=== PATIENT | female | born 1960 | race Caucasian/White ===

== ENCOUNTER 2018-09-09 16:54 | Inpatient (IN) | payer BC ==
[~2018-09-09] VITALS: Ht 172.7 cm; Wt 80.3 kg
[2018-09-09] MEDS ORDERED: MELATONIN 3 MG TABLET PO PRN (17:15)
[2018-09-09] MEDS ORDERED: HYDROcodone/APAP 5 MG/325 MG (LORTAB) TAB PO PRN (17:15)
[2018-09-09] MEDS ORDERED: ONDANSETRON 4 MG (ZOFRAN) ORAL DISSOLVE TAB PO PRN (17:15)
[2018-09-09] MEDS ORDERED: ACETAMINOPHEN 500 MG TAB (TYLENOL) PO PRN (17:15)
[2018-09-09] MEDS ORDERED: CALCIUM CARBONATE 500 MG (TUMS) TAB.CHEW PO PRN (17:15)
[2018-09-09] MEDS ORDERED: LACTULOSE SYRUP 10GM/15ML (ENULOSE) 30ML UDC PO PRN (17:15)
[2018-09-09] MEDS ORDERED: LOPERAMIDE 2 MG (IMODIUM) CAP PO PRN (17:15)
[2018-09-09] MEDS ORDERED: ALPRAZolam 0.25 MG (XANAX) TAB PO PRN (17:15)
--- NOTE | 2018-09-09 22:30 | NUR ---
Adin Gibson admitted to room 231-1, with an admitting diagnosis of CVA, on 09/09/18 from [facility] via wheelchair van, accompanied by w/c house servant. ADIN GIBSON introduced to surroundings, call light, bed controls, phone, TV, temperature control, lights, meal times, smoking policy, visitor policy, side rail policy, bathrooms and showers. Patient Rights given to patient in the handbook.ADIN GIBSON verbalizes understanding that [facility] is not responsible for the loss or damage to any personal effects or valuables that are kept in the patients posession during their hospitalization. The following Patient Care Plans were discussed with the pt: Discharge Planning,impaired mobility, alteration in comfort, and alt in skin integrity. ADIN GIBSON verbalizes understanding of Interdisciplinary Patient Education. Patient was informed about the Rapid Response Team and its purpose. Patient received Patient Rights Booklet, which includes Privacy Act Statement and Data Collection Information Summary.
[2018-09-09 22:41] VITALS: BP 131/88
--- NOTE | 2018-09-09 22:44 | NUR ---
Dr. Banks notified of pt's arrival on unit
[2018-09-09 22:52] VITALS: BP 131/88
[2018-09-09] MEDS ORDERED: NAPROXEN 250 MG (NAPROSYN) TABLET PO PRN (23:00)
[2018-09-09] MEDS: POLYETHYLENE GLYCOL 17 GM (MIRALAX) PACK PO SCH (23:01)
[2018-09-09] MEDS ORDERED: ATORVASTATIN 40 MG (LIPITOR) TABLET ONE (23:03)
[2018-09-09] MEDS: DOCUSATE SODIUM 100 MG (COLACE) CAP PO SCH (23:11)
[2018-09-09] MEDS: ATORVASTATIN 80 MG (LIPITOR) TABLET PO SCH (23:11)
[2018-09-09] MEDS: SENNA W/DOCUSATE (SENOKOT S) TABLET PO SCH (23:11)
[2018-09-10 05:04] VITALS: BP 113/73
[2018-09-10 06:33] LABS: BASOPHILS # (AUTO) 0.1 10^3/uL (0.0-0.1); BASOPHILS % (AUTO) 1 % (0-10); EOSINOPHILS # (AUTO) 0.2 10^3/uL (0.0-0.3); EOSINOPHILS % (AUTO) 2 % (0-10); HEMATOCRIT 41 % (35-52); HEMOGLOBIN 14.3 G/DL (11.5-16.0); LYMPHOCYTES % (AUTO) 26 % (12-44); MEAN CORPUSCULAR HEMOGLOBIN 32 PG (25-34); MEAN CORPUSCULAR HGB CONC 35 G/DL (32-36); MEAN CORPUSCULAR VOLUME 90 FL (80-99); MEAN PLATELET VOLUME 9.8 FL (7.4-10.4); MONOCYTES # (AUTO) 0.9 X 10^3 (0.0-1.0); MONOCYTES % (AUTO) 12 % (0-12); NEUTROPHILS # (AUTO) 4.6 X 10^3 (1.8-7.8); NEUTROPHILS % (AUTO) 60 % (42-75); PLATELET COUNT 198 10^3/uL (130-400); RED CELL DISTRIBUTION WIDTH 12.6 % (10.0-14.5); WHITE BLOOD COUNT 7.8 10^3/uL (4.3-11.0)
[2018-09-10 07:00] LABS: ALANINE AMINOTRANSFERASE 39 U/L (0-55); ALBUMIN 4.1 GM/DL (3.2-4.5); ALKALINE PHOSPHATASE 66 U/L (40-136); BILIRUBIN,TOTAL 0.9 MG/DL (0.1-1.0); BUN/CREATININE RATIO 24; CALCIUM 9.4 MG/DL (8.5-10.1); CARBON DIOXIDE 21 MMOL/L (21-32); CHLORIDE 103 MMOL/L (98-107); CREATININE SERUM 0.79 MG/DL (0.60-1.30); GFR ESTIMATED > 60; GLUCOSE 96 MG/DL (70-105); POTASSIUM 3.9 MMOL/L (3.6-5.0); SODIUM 134 MMOL/L (135-145); TOTAL PROTEIN 6.8 GM/DL (6.4-8.2)
[2018-09-10] MEDS: CLOPIDOGREL 75 MG (PLAVIX) TABLET PO SCH (08:34)
[2018-09-10] MEDS: lisINopril 20 MG (PRINIVIL) TABLET PO SCH (08:35)
[2018-09-10] MEDS: DOCUSATE SODIUM 100 MG (COLACE) CAP PO SCH ×2 (08:35→20:49)
[2018-09-10] MEDS: POLYETHYLENE GLYCOL 17 GM (MIRALAX) PACK PO SCH ×2 (08:35→20:49)
[2018-09-10] MEDS: SENNA W/DOCUSATE (SENOKOT S) TABLET PO SCH ×2 (08:35→20:49)
--- NOTE | 2018-09-10 08:41 | PM&R H&P / Post Admit Assess ---
History of Present Illness HPI/Chief Complaint CC: CVA w/right sided weakness HPI: This is a 57yoWF clinic patient of Dr Guajardo at his [place] clinic who presented to the [facility] ER w/abrupt onset right sided deficit with dysarthria. tPA was administered and patient was then transferred to [facility] for neurological services. 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 No dysphagia was noted during acute care stay but dysarthria remains with word searching processes. She is in good spirits on Celexa per protocol. Constipation is resolving at time of DC. No pain is reported. 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 Smoking cessation counseled. Patient was placed on statin therapy and Plavix was added to regimen with no side effects. 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 Source: patient, RN/MD, old records Exam Limitations: no limitations Date Seen 09/10/18 Time Seen by a Provider: 08:30 Attending Physician Yumi Banks Jonathan L MD Referring Physician Date of Admission September 09, 2018 at 22:22 Home Medications & Allergies Home Medications Reviewed patient Home Medication Reconciliation performed by pharmacy medication reconciliations copy technician and/or nursing. Patients Allergies have been reviewed. 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) Alcohol Use: Regular Use Number of Drinks Today: 4 Alcohol Beverage of Choice: Beer Recreational Drug Use: No Smoking Status: Current Everyday Smoker Physical Abuse Screen: No Sexual Abuse: No Recent Foreign Travel: Yes Contact w/other who traveled: No Recent Hopitalizations: Yes ([facility] d/t CVA) Recent Infectious Disease Expo: No Seasonal Allergies Seasonal Allergies: No Past Medical History Neurological: Stroke (09/01/18 s/p tPA) Psychosocial: Anxiety, Depression History of Blood Disorders: No Adverse Reaction to Blood Jc: No Review of Systems Constitutional: see HPI, dizziness, malaise, weakness EENTM: no symptoms reported Respiratory: no symptoms reported Cardiovascular: no symptoms reported Gastrointestinal: constipation Genitourinary: incontinence Musculoskeletal: no symptoms reported Skin: no symptoms reported Psychiatric/Neurological: Anxiety, Depressed, Numbness, Paresthesia, Weakness, Other (dysarthria) All Other Systems Reviewed Negative Unless Noted: Yes Physical Exam Exam Vital Signs Vital Signs Date Time Temp Pulse Resp B/P (MAP) Pulse Ox O2 Delivery O2 Flow Rate FiO2 09/10/18 09:00 Room Air 09/10/18 05:04 97.4 63 20 113/73 (86) 95 Capillary Refill : General Appearance: No Apparent Distress, WD/WN, Chronically ill HEENT: PERRL/EOMI, Normal ENT Inspection, Pharynx Normal, Moist Mucous Membranes Neck: Full Range of Motion, Normal Inspection, Non Tender, Supple Respiratory: Chest Non Tender, Lungs Clear, Normal Breath Sounds, No Accessory Muscle Use, No Respiratory Distress Cardiovascular: Regular Rate, Rhythm, No Edema, No Gallop, No JVD, No Murmur Gastrointestinal: Normal Bowel Sounds, No Organomegaly, No Pulsatile Mass, Non Tender, Soft Back: Normal Inspection, No CVA Tenderness, No Vertebral Tenderness Extremity: Normal Capillary Refill, Normal Inspection, Normal Range of Motion, Non Tender, No Calf Tenderness, No Pedal Edema Neurologic/Psychiatric: Alert, Oriented x3, Abnormal Cerebellar Tests, Abnormal Gait, Depressed Affect, Motor Weakness (right sided 1/5 arm and leg), Other (dysarthria, word searching) Skin: Normal Color, Warm/Dry Lymphatic: No Adenopathy Results Results/Procedures Labs Laboratory Tests 09/10/18 06:20 Patient resulted labs reviewed. Assessment/Plan Assessment and Plan Assess & Plan/Chief Complaint Assessment: CVA w/right sided weakness Dysarthria Incontinence Constipation Smoker HLP Plan: IRF protocols BM regimen Smoking cessation Fall risk prevention (1) CVA (cerebral vascular accident) (2) Dysarthria (3) Incontinence of urine (4) Constipation (5) Smoker (6) Hyperlipidemia (7) Right sided weakness (8) Depression (9) Grief reaction Post Admission Physician Asses Date seen by provider: September 10, 2018 Time seen by provider: 08:30 Admisison Dx: (1) CVA (cerebral vascular accident) (2) Constipation (3) Dysarthria (4) Depression (5) Grief reaction (6) Hyperlipidemia (7) Incontinence of urine (8) Right sided weakness (9) Smoker The preadmission screen agrees with the post admission assessment that the patient is a good candidate for inpatient rehabilitation. The patient will have a comprehensive program of inpatient rehabilitation with a goal of maximizing level of functional independence prior to discharge home with . The patient will have PT/OT ninety minutes per day, each discipline, five days a week for gait, strengthening, conditioning, balance, ADLs, any patient/family/caregiver training as necessary. Speech therapy to do cognitive assessment and treat as indicated. Rehabilitation nursing to assist with bowel, bladder, skin, wound care, medication administration, pain management. Magnetic Prospecting Supervisor to assist with discharge planning, community reentry. SCD's for DVT prophylaxis. She appears to be well motivated to participate in three hours of therapy a day. She should be able to tolerate three hours of therapy a day from a medical standpoint. She should benefit from the three hours of therapy a day. She has a reasonable discharge plan, reasonable discharge rehabilitation goals and a supportive family. She has various comorbidities that need to be closely monitored with medications and treatments adjusted on a daily basis as needed. These include: see list Barriers to discharge for this patient who had been independent prior to this are for her to be modified independent to supervision for ADLs and mobility skills prior to discharge home with , so as to lessen the burden of the caregivers. Risks for this patient include: 1. Fall 2. Fracture 3. DVT 4. Pulmonary embolism 5. Wound infection 6. Skin breakdown 7. Contractures 8. Poorly controlled pain 9. Urinary retention 10. UTI 11. Respiratory infection 12. Aspiration Estimated Length of Stay: 21 days Prognosis: Rehab prognosis appears good for goal of discharge home with modified independent to supervision for ADLs and mobility skills. YUMI BANKS DO September 10, 2018 08:41
--- NOTE | 2018-09-10 08:52 | ST Cognitive Linguistic Eval ---
Speech Evaluation-General Medical Diagnosis CVA Onset Date: Sep 01, 2018 Therapy Diagnosis Therapy Diagnosis: Cognitive-communication Precautions Precautions/Isolations: Fall Prevention, Standard Precautions Medical History Reviewed History: Yes Social History Home: Multilevel Current Living Status: Spouse Speech PLF-Current Status Prior Level of Function The patient lived at home with her and son. She was still working a fulltime job and was independent for all daily needs. Subjective The patient was pleasant and cooperative with the cognitive assessment. Language Eval: Auditory Comprehends Simple Yes/No Ques: Functional Indent/Objects Multiple Wright: Functional Ident/Pics in Multiple Wright: Functional Follows 1-Step Commands: Functional Follows Complex Directions: Functional Follows General Conversations: Functional Language Eval: Verbal Language Completes Spontaneous Greeting: Functional Produces Auto, Serial Info: Functional Imitates Simple Words/Phrases: Functional Word Finding: Functional Requests Basic Needs: Functional States Basic Personal Info: Functional Expresses Complex Ideas: Functional Objective Cognitive Domain Attention: WNL Memory: WNL Problem Solving: Functional Executive Functions: WNL Visuospatial Skills: WNL Composite Severity Rating: WNL Clock Drawing Severity Rating: WNL Objective Formal/Standardized Tests [place] Cognitive Assessment (MOCA) Results Visuospatial/Executive: 5/5, Namin/3, Memory: Immediate 5/5, Delayed 5/5, Attention: 2/2, Language: 3/3, Abstraction: 2/2, Orientation: 6/6 Oral Motor/Speech Production Within functional limits Impression The patient is a pleasant 57 year old female who was admitted to the ARU s/p CVA for strengthening for a safe return home. The patient is a good historian and was able to recall the entire incident of the CVA. The patient completed the MOCA within normal range for all areas of assessment. The patient does not require skilled ST at this time. Communication/Social Cognition Comprehension: 7 Expression: 7 Social Interaction: 7 Problem Solvin Memory: 7 Speech Patient Assess Expression of Ideas/Wants: Expression (4) Understanding Verbal Content: Understands (4) Brief Interview-Mental Status: Yes Repetition of Three Words: Three (3) Temporal Orientation: Year: Correct (3) Temporal Orientation: Month: Accurate within 5 days(2) Temporal Orientation: Day: Correct (1) Recall : Wear to say "Sock": Yes, no cue required (2) Recall : Color: Yes, no cue required (2) Recall : Bed: Yes, no cue required (2) Memory/Recall Ability: Current season, Staff names and faces, That he or she is in a hsp/hsp unit Speech-Plan Patient/Family Goals Patient/Family Goals: The patient plans to return home where she lives with her and son. Her family will be available to help her with her daily needs. Treatment Plan Speech Therapy Treatment Plan: Discontinue ST The patient does not require skilled ST services at this time. Treatment Duration: September 10, 2018 Frequency: 1 time per week Estimated Hrs Per Day: .25 hour per day Rehab Potential: Good Barriers to Learning: Patient has right sided weakness. Pt/Family Agrees to Plan: Yes Safety Risks/Education Teaching Recipient: Patient Teaching Methods: Discussion Response to Teaching: Verbalize Understanding Education Topics Provided: Safety within her room and utilization of the call light as needed. Time Speech Therapy Time In: 08:30 Speech Therapy Time Out: 08:45 Total Billed Time: 15 Billed Treatment Time 1, SPSNDCOMP ASCENCION Christine September 10, 2018 08:52
--- NOTE | 2018-09-10 10:03 | Physical Therapy Evaluation ---
PT Evaluation-General Medical Diagnosis Admission Date September 09, 2018 at 22:22 Medical Diagnosis: CVA Onset Date: Sep 01, 2018 Therapy Diagnosis Therapy Diagnosis: impaired mobility, strength, endurance, balance Height/Weight Height (Feet): 5 Height (Inches): 8.00 Weight (Pounds): 175 Weight (Ounces): 3.2 Precautions Precautions/Isolations: Fall Prevention, Standard Precautions Referral Physician: Yumi Banks DO Reason for Referral: Evaluation/Treatment Medical History Additional Medical History anxiety,depression Reviewed History: Yes Social History Home: Multilevel Current Living Status: Spouse Entry Into Home: Stairs Without Railing PT Steps Into Home: 5 Prior/Core FIM Prior Level of Function Therapy Code Descriptions/Definitions Functional [place] Measure: 0=Not Assessed/NA 4=Minimal Assistance 1=Total Assistance 5=Supervision or Setup 2=Maximal Assistance 6=Modified [place] 3=Moderate Assistance 7=Complete [place] Therapy Quality Codes: 6 Independent with activity with or without an assistive device 5 Patient requires set up or clean up by helper. Patient completes activity by themselves 4 Supervision or touching assist (CGA). Cameron provide cues , steadying assist 3 The helper provides less than half the effort to complete the activity 2 The helper provides more than half the effort to complete the activity 1 Dependent. The helper does all the effort to complete an activity 7 Patient refused to complete or attempt activity 9 The patient did not perform the activity before the current illness or injury 88 Not attempted due to Medical conditions or safety concerns Functional Abilities and Goals: Independent: Patient completed the activities by him/herself, with or without an assistive device, with no assistance from a helper. Needed Some Help: Patient needed partial assistance from another person to complete activities. Dependent: A helper completed the activities for the patient. Unknown: Not Applicable: Bed Mobility: 7 Transfers (B,C,W/C) (FIM): 7 Gait: 7 Stairs: 7 Indoor Mobility (Ambulation): Independent Stairs: Independent PT Evaluation-Current Subjective Patient in bed pre tx, agrees to PT, has no complaints of pain. Pt/Family Goals to be independent at home Objective Patient Orientation: Person, Place, Situation ROM/Strength ROM Lower Extremities WNL Strenght Lower Extremities left lower extremity (hip flexion 4/5, knee flexion 5/5, knee extension 5/5, dorsiflexion 5/5), right lower extremity (hip flexion 2/5, knee flexion 0/5, knee extension 0/5, dorsiflexion 0/5) Neuromuscular (Tone, Coordination, Reflexes) decreased tone in LLE and LUE Sensory Vision: Functional Hearing: Functional Sensation Right Lower Extremit: Intact Sensation Left Lower Extremity: Impaired Sensation Lower Extremities Patient has decreased light touch sensation in LLE and patient states it is pretty numb Transfers Therapy Code Descriptions/Definitions Functional [place] Measure: 0=Not Assessed/NA 4=Minimal Assistance 1=Total Assistance 5=Supervision or Setup 2=Maximal Assistance 6=Modified [place] 3=Moderate Assistance 7=Complete [place] Therapy Quality Codes: 6 Independent with activity with or without an assistive device 5 Patient requires set up or clean up by helper. Patient completes activity by themselves 4 Supervision or touching assist (CGA). Cameron provide cues , steadying assist 3 The helper provides less than half the effort to complete the activity 2 The helper provides more than half the effort to complete the activity 1 Dependent. The helper does all the effort to complete an activity 7 Patient refused to complete or attempt activity 9 The patient did not perform the activity before the current illness or injury 88 Not attempted due to Medical conditions or safety concerns Transfers (B, C, W/C) (FIM): 3 Scootin Rollin Roll Left to Right (QC): 4 Supine to/from Sit: 4 Sit to/from Stand: 3 bed t/f WC(FIM only if WC use): 3 Sit to Lying (QC): 3 Lying to Sitting/Side of Bed(Q: 3 Sit to Stand (QC): 2 Chair/Mgp-ye-Aliuz Xfer(QC): 2 Car Transfer (QC): 2 Patient performs bed mobility with CGA, supine <-> sit with min assist, sit <-> stand with mod assist, transfers with mod assist, car transfer mod assist. Patient needs cues for hand placement, positioning, and safety. She cannot bear weight on right leg during transfers. Gait Does the Patient Walk?: Yes Mode of Locomotion: Wheelchair Anticipated Mode of Locomotion: Both Gait (FIM): 1 Distance: 8'x3 Gait Level of Assist: 2 Gait Persons Needed: 1 Gait Assistive Device: Parallel Bars Comments/Gait Description Patient ambulated 8' forward and back in the parallel bars x3 with max assist. Patient needs assist blocking right knee and advancing her right foot, some assist with weight shifting. Patient needs shoes and an AFO on the right side. Wheelchair Training Does the Pt Use a Wheelchair?: Yes Wheelchair (FIM): 4 Distance: 150'x2 Wheelchair Level of Assist: 4 Wheel 50 ft with 2 turns (QC): 4 Wheel 150 ft (QC): 4 Type of Wheelchair: Manual Patient can propel a manual wheelchair 150' with min assist to help around obstacles and corners. Stairs If not tested on admit;explain Patient is not ambulating out of the parallel bars yet. Balance Sitting Static: Good Sitting Dynamic: Good Standing Static: Poor Standing Dynamic: Poor Treatment sit to stands in the parallel bars 5reps x2, patient needs assist blocking right knee and cues to bear all weight through her left leg. Assessment/Needs Patient has impaired mobility ,strength, endurance, balance. She does not seem to have much neglect. Rehab Potential: Fair PT Short Term Goals Short Term Goals Time Frame: September 17, 2018 Transfers (B,C,W/C) (FIM): 4 Gait (FIM): 1 Gait Distance Comment: 20' Gait Level of Assist: 3 Gait Assistive Device: Walker Lior Wheelchair Distance: See PT goals PT Mcc Goals Prop And Scenery Maker Goals PT Prop And Scenery Maker Goals Time Frame: October 01, 2018 Transfers (B,C,W/C) (FIM): 4 Sit to Lying (QC): 4 Lying-Sitting on Side/Bed(QC): 4 Sit to Stand (QC): 4 Rollin Roll Left to Right (QC): 4 Chair/Pmd-ta-Bhzao Xfer(QC): 4 Car Transfer (QC): 4 Gait (FIM): 1 Distance: 40' Walk 10 feet (QC): 3 Walk 10ft-Uneven Surface(QC): 3 Gait Level of Assist: 4 Gait Assistive Device: Walker Lior Stairs (FIM): 1 # of Steps: 1 1 Step (curb) (QC): 3 Stairs Level Of Assist: 4 PT Plan Problem List Problem List: Activity Tolerance, Functional Strength, Safety, Balance, Gait, Transfer, Bed Mobility, ROM Treatment/Plan Treatment Plan: Continue Plan of Care Treatment Plan: Bed Mobility, Concurrent Therapy, Education, Functional Activity Linda, Functional Strength, Group Therapy, Gait, Safety, Therapeutic Exercise, Transfers Treatment Duration: October 01, 2018 Frequency: At least 5 of 7 days/Wk (IRF) Estimated Hrs Per Day: 1.5 hours per day Patient and/or Family Agrees t: Yes Safety Risks/Education Patient Education: Gait Training, Transfer Techniques, Correct Positioning, W/ C Management, Safety Issues Teaching Recipient: Patient Teaching Methods: Demonstration, Discussion Response to Teaching: Reinforcement Needed Discharge Recommendations Plan Patient will perform bed mobility and transfer training, balance and endurance training, functional strengthening, stair training, gait training, and education , to improve functional mobility and independence at home. Therapy D/C Recommendations: Home w/ Family Support Time/GCodes Time In: 0900 Time Out: 1000 Total Billed Treatment Time: 60 Total Billed Treatment 1 visit EVM 30' GT 20' EX 10' ALINE SÁNCHEZ PT September 10, 2018 10:03
[2018-09-10] MEDS ORDERED: LISI10TA2 PO (11:31)
[2018-09-10] MEDS ORDERED: ATEN25TA PO (11:31)
[2018-09-10] MEDS ORDERED: ASPI-983 PO (11:31)
[2018-09-10] MEDS ORDERED: MELA3TAB PO (11:31)
[2018-09-10] MEDS ORDERED: HYDR12.56 PO (11:31)
--- NOTE | 2018-09-10 11:32 | NUR ---
UPDATED MED REC TO THE LIST OF MEDICATIONS THE PATIENT WAS TAKING PRIOR TO DISCHARGE FROM [facility] USING THE DISCHARGE PAPERWORK. NOTE THE FOLLOWING CHANGES WERE MADE AT DISCHARGE FROM [facility] THAT ARE NOT CURRENTLY REFLECTED ON THE HOME MED REC: START TAKING: LIPITOR 40MG HS CITALOPRAM 10MG DAILY PLAVIX 75MG DAILY COLACE 100MG BID MILK OF MAG 30ML DAILY PRN STOP TAKING: ASPIRIN 81MG ATENOLOL 25MG HCTZ 12.5MG NOTE THEY STATE TO CONTINUE TAKING LISINOPRIL 10MG DAILY HOWEVER IT IS DOCUMENTED THE LAST DOSE GIVEN WAS 20MG ON 09-09-18. THERE IS NO EXT MED HX OR PHARMACY ON FILE FOR ME TO VERIFY WHAT HAS BEEN FILLED RECENTLY. THE PAPERWORK FROM [facility] HAS A LIST OF PRIOR TO ADMISSION MEDICATIONS: ASPIRIN 81MG 4 TABS DAILY LISINOPRIL 10MG DAILY MELATONIN 3MG HS PRN THE DISCHARGE STATES TO STOP TAKING: ASPIRIN 81MG ATENOLOL 25MG HYDROCHLOROTHIAZIDE 12.5MG
--- NOTE | 2018-09-10 12:56 | Occupational Therapy Eval ---
OT Evaluation-General/PLF Medical Diagnosis Admission Date September 09, 2018 at 22:22 Medical Diagnosis: CVA Onset Date: Sep 01, 2018 Therapy Diagnosis Therapy Diagnosis: decreased self care skills Height/Weight Height (Feet): 5 Height (Inches): 8.00 Weight (Pounds): 175 Weight (Ounces): 3.2 Precautions Precautions/Isolations: Fall Prevention Referral Physician: Yumi Banks DO Medical History Additional Medical History anxiety, depression Reviewed History: Yes Social History Home: Multilevel Current Living Status: Spouse Entry Into Home: Stairs Without Railing Steps Into Home: 5 ADL-Prior Level of Function Therapy Code Descriptions/Definitions Functional [place] Measure: 0=Not Assessed/NA 4=Minimal Assistance 1=Total Assistance 5=Supervision or Setup 2=Maximal Assistance 6=Modified [place] 3=Moderate Assistance 7=Complete [place] Therapy Quality Codes: 6 Independent with activity with or without an assistive device 5 Patient requires set up or clean up by helper. Patient completes activity by themselves 4 Supervision or touching assist (CGA). [place] provide cues , steadying assist 3 The helper provides less than half the effort to complete the activity 2 The helper provides more than half the effort to complete the activity 1 Dependent. The helper does all the effort to complete an activity 7 Patient refused to complete or attempt activity 9 The patient did not perform the activity before the current illness or injury 88 Not attempted due to Medical conditions or safety concerns Functional Abilities and Goals: Independent: Patient completed the activities by him/herself, with or without an assistive device, with no assistance from a helper. Needed Some Help: Patient needed partial assistance from another person to complete activities. Dependent: A helper completed the activities for the patient. Unknown: Not Applicable: ADL PLOF Comments Pt reports being independent with self care and mobility. Does not use any assistive devices. 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 Mental Status/Objective Patient Orientation: Person, Place, Situation Current Glasses/Contacts: Yes Hearing Aids: No Hand Dominance: Left Upper Extremity ROM Left UE WFL Right UE PROM grossly WFL. Pt has some increased tone Upper Extremity Coordination Left UE intact Right UE impaired. Upper Extremity Sensation Intact on left. Pt reports "hypersensitivity"on right Upper Extremity Strength Left UE grossly WFL Right UE 0/5 ADL-Treatment ADL-Current Pt agreeable to shower. Transfer chair to w/c with moderate assistance. Pt has poor weight bearing through right LE. To restroom via w/c. Transfer w/c <-> shower bench with moderate assistance using grab bars, skilled cues for technique and safety. Pt doffed clothing with max assist. Seated bathing completed using hand held shower. Pt able to wash right UE, chest, abdomen, tawny area, bilateral upper legs, and left lower leg. Assist for other areas. Don bra with max assist. Don pullover shirt with max assist. Skilled cues for UE dressing technique. Pt requires assist to start Depends and pants over feet. Stood with mod assist, required assist to complete pant hike. Pt donned left socks, required assist with right sock. Pt transferred to chair with mod assist. Sitting in chair with needs met after session, family present. Eating (FIM): 5 (set up by report) Eating (QC): 5 Bathing (FIM): 3 Shower/Bathe Self (QC): 3 Upper Body Dressing (FIM): 2 Upper Body Dressing (QC): 2 Lower Body Dressing (FIM): 2 Lower Body Dressing (QC): 2 On/Off Footwear (QC): 2 Toilet/Commode Transfer (FIM): 3 Toilet Transfer (QC): 3 Shower Transfer (FIM): 3 Education OT Patient Education: Rehab process Teaching Recipient: Patient Teaching Methods: Discussion Response to Teaching: Verbalize Understanding OT Short Term Goals Short Term Goals Time Frame: September 17, 2018 Bathing(FIM): 4 Upper Body Dressing(FIM): 3 Lower Body Dressing(FIM): 3 Toileting(FIM): 3 Toilet/Commode Transfer(FIM): 4 Additional Short Term Goals: 2-Verbalize Understanding, 3-ImproveStrength/Linda 1=Demonstrate adherence to instructed precautions during ADL tasks. 2=Patient will verbalize/demonstrate understanding of assistive devices/ modifications for ADL. 3=Patient will improve strength/tolerance for activity to enable patient to perform ADL's. OT Director Of Land Acquisition Goals Director Of Land Acquisition Goals Time Frame: October 01, 2018 Eating (FIM): 6 Eating (QC): 6 Groomin Oral Hygiene (QC): 6 Bathing(FIM): 5 Shower/Bathe Self (QC): 4 Upper Body Dressing(FIM): 5 Upper Body Dressing (QC): 5 Lower Body Dressing(FIM): 4 Lower Body Dressing (QC): 4 On/Off Footwear (QC): 4 Toileting(FIM): 5 Toileting Hygiene (QC): 4 Toilet/Commode Transfer(FIM): 5 Toilet/Commode Transfer (QC): 5 Shower Transfer(FIM): 5 Additional Goals: 2-Verbalize Understanding, 3-ImproveStrength/Linda 1=Demonstrate adherence to instructed precautions during ADL tasks. 2=Patient will verbalize/demonstrate understanding of assistive devices/ modifications for ADL. 3=Patient will improve strength/tolerance for activity to enable patient to perform ADL's. Goals established to promote increased functional independence and allow safe discharge. OT Education/Plan Problem List/Assessment Assessment: Decreased Activ Tolerance, Decreased UE Strength, Dependent Transfers, Impaired Coordination, Impaired Funct Balance, Impaired I ADL's, Impaired Self-Care Skills, Restricted Funct UE ROM Pt admitted to ARU following CVA. Pt demonstrates decreased activity tolerance, mobility, strength, ROM, and ADL functioning. Pt to benefit from skilled OT intervention for ADL training, training, transfers, strengthening, and safety education to increase level of independence and allow safe discharge home with family. Discharge Recommendations Plan/Recommendations: Continue POC Treatment Plan/Plan of Care Treatment,Training & Education: Yes Patient would benefit from OT for education, treatment and training to promote independence in ADL's, mobility, safety and/or upper extremity function for ADL' s. Plan of Care: ADL Retraining, Functional Mobility, Group Exercise/Act as Ind, UE Funct Exercise/Act, UE Neuromus Re-Ed/Coord Treatment Duration: October 01, 2018 Frequency: At least 5 of 7 days/Wk (IRF) Estimated Hrs Per Day: 1.5 hours per day Rehab Potential: Fair Time/GCodes Start Time: 11:00 Stop Time: 12:00 Total Time Billed (hr/min): 60 Billed Treatment Time 1 visit, EVM(15minutes), ADLx3(45minutes) EVENS MARKS OT September 10, 2018 12:56
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
--- NOTE | 2018-09-10 13:33 | Physical Therapy Daily Note ---
PT Daily Note-Current Subjective Patient in recliner pre tx, agrees to PT, no complaints of pain. Appearance Patient in wheelchair at bedside post tx with nurse call, tray, family in the room. Mental Status Patient Orientation: Person, Place, Situation Transfers Therapy Code Descriptions/Definitions Functional [place] Measure: 0=Not Assessed/NA 4=Minimal Assistance 1=Total Assistance 5=Supervision or Setup 2=Maximal Assistance 6=Modified [place] 3=Moderate Assistance 7=Complete [place] Therapy Quality Codes: 6 Independent with activity with or without an assistive device 5 Patient requires set up or clean up by helper. Patient completes activity by themselves 4 Supervision or touching assist (CGA). [place] provide cues , steadying assist 3 The helper provides less than half the effort to complete the activity 2 The helper provides more than half the effort to complete the activity 1 Dependent. The helper does all the effort to complete an activity 7 Patient refused to complete or attempt activity 9 The patient did not perform the activity before the current illness or injury 88 Not attempted due to Medical conditions or safety concerns Transfers (B, C, W/C) (FIM): 4 Sit to/from Stand: 4 Bed to/from Chair: 4 SPT Pablo Wheelchair Training Does the Pt Use a Wheelchair?: Yes Wheelchair (FIM): 5 Distance: 150'x2 Wheelchair Level of Assist: 5 Type of Wheelchair: Manual uses left arm and leg Exercises NuStep Minutes: 15 NuStep Workload: 4 Treatments transfers, wheelchair mobility, functional strengthening Assessment Current Status: Fair Progress Patient has improved SPT PT Short Term Goals Short Term Goals Time Frame: September 17, 2018 Transfers (B,C,W/C) (FIM): 4 Gait (FIM): 1 Gait Distance Comment: 20' Gait Level of Assist: 3 Gait Assistive Device: Walker Lior Wheelchair Distance: 150'x2 PT Penitentiary Goals Penitentiary Goals PT Slurry Blender Goals Time Frame: October 01, 2018 Transfers (B,C,W/C) (FIM): 4 Sit to Lying (QC): 4 Lying-Sitting on Side/Bed(QC): 4 Sit to Stand (QC): 4 Rollin Roll Left to Right (QC): 4 Chair/Jtp-qt-Eykic Xfer(QC): 4 Car Transfer (QC): 4 Gait (FIM): 1 Distance: 40' Walk 10 feet (QC): 3 Walk 10ft-Uneven Surface(QC): 3 Gait Level of Assist: 4 Gait Assistive Device: Walker Lior Stairs (FIM): 1 # of Steps: 1 1 Step (curb) (QC): 3 Stairs Level Of Assist: 4 PT Plan Problem List Problem List: Activity Tolerance, Functional Strength, Safety, Balance, Gait, Transfer, Bed Mobility Treatment/Plan Treatment Plan: Continue Plan of Care Treatment Plan: Bed Mobility, Concurrent Therapy, Education, Functional Activity Linda, Functional Strength, Group Therapy, Gait, Safety, Therapeutic Exercise, Transfers Treatment Duration: October 01, 2018 Frequency: At least 5 of 7 days/Wk (IRF) Estimated Hrs Per Day: 1.5 hours per day Patient and/or Family Agrees t: Yes Safety Risks/Education Patient Education: Transfer Techniques, Correct Positioning, W/C Management, Safety Issues Teaching Recipient: Patient Teaching Methods: Demonstration, Discussion Response to Teaching: Reinforcement Needed Time/GCodes Time In: 1300 Time Out: 1330 Total Billed Treatment Time: 30 Total Billed Treatment 1 visit [facility] 15' EX 15' ALINE SÁNCHEZ PT September 10, 2018 13:33
--- NOTE | 2018-09-10 14:59 | Occupational Ther Daily Note ---
OT Current Status-Daily Note Subjective Pt sitting in w/c, agrees to treatment. Mental Status/Objective Therapy Code Descriptions/Definitions Functional [place] Measure: 0=Not Assessed/NA 4=Minimal Assistance 1=Total Assistance 5=Supervision or Setup 2=Maximal Assistance 6=Modified [place] 3=Moderate Assistance 7=Complete [place] ADL-Treatment To restroom via w/c. Pt completed grooming tasks while seated at sink. Pt brushed teeth with SBA. Has already combed hair with assist from daughter. Pt demonstrated ability to transfer w/c <-> commode with mod assist. Requires skilled cues for safety and hand placement. Pt has decreased weight bearing on right LE with mobility. Pt transferred to bed with moderate assistance. Required assist to raise right LE onto bed. PROM completed right UE at all joints. No active movement noted. Pt was positioned in bed with needs met after session. Therapy Code Descriptions/Definitions Functional [place] Measure: 0=Not Assessed/NA 4=Minimal Assistance 1=Total Assistance 5=Supervision or Setup 2=Maximal Assistance 6=Modified [place] 3=Moderate Assistance 7=Complete [place] Therapy Quality Codes: 6 Independent with activity with or without an assistive device 5 Patient requires set up or clean up by helper. Patient completes activity by themselves 4 Supervision or touching assist (CGA). [place] provide cues , steadying assist 3 The helper provides less than half the effort to complete the activity 2 The helper provides more than half the effort to complete the activity 1 Dependent. The helper does all the effort to complete an activity 7 Patient refused to complete or attempt activity 9 The patient did not perform the activity before the current illness or injury 88 Not attempted due to Medical conditions or safety concerns Grooming (FIM): 5 Oral Hygiene (QC): 4 Toilet/Commode Transfer (FIM): 3 Toilet Transfer (QC): 3 OT Short Term Goals Short Term Goals Time Frame: September 17, 2018 Bathing(FIM): 4 Upper Body Dressing(FIM): 3 Lower Body Dressing(FIM): 3 Toileting(FIM): 3 Toilet/Commode Transfer(FIM): 4 Additional Short Term Goals: 2-Verbalize Understanding, 3-ImproveStrength/Linda 1=Demonstrate adherence to instructed precautions during ADL tasks. 2=Patient will verbalize/demonstrate understanding of assistive devices/ modifications for ADL. 3=Patient will improve strength/tolerance for activity to enable patient to perform ADL's. OT Elementary Vocal Music Teacher Goals [facility] Goals Time Frame: October 01, 2018 Eating (FIM): 6 Eating (QC): 6 Groomin Oral Hygiene (QC): 6 Bathing(FIM): 5 Shower/Bathe Self (QC): 4 Upper Body Dressing(FIM): 5 Upper Body Dressing (QC): 5 Lower Body Dressing(FIM): 4 Lower Body Dressing (QC): 4 On/Off Footwear (QC): 4 Toileting(FIM): 5 Toileting Hygiene (QC): 4 Toilet/Commode Transfer(FIM): 5 Toilet/Commode Transfer (QC): 5 Shower Transfer(FIM): 5 Additional Goals: 2-Verbalize Understanding, 3-ImproveStrength/Linda 1=Demonstrate adherence to instructed precautions during ADL tasks. 2=Patient will verbalize/demonstrate understanding of assistive devices/ modifications for ADL. 3=Patient will improve strength/tolerance for activity to enable patient to perform ADL's. OT Education/Plan Discharge Recommendations Plan/Recommendations: Continue POC Treatment Plan/Plan of Care Treatment,Training & Education: Yes Patient would benefit from OT for education, treatment and training to promote independence in ADL's, mobility, safety and/or upper extremity function for ADL' s. Plan of Care: ADL Retraining, Functional Mobility, Group Exercise/Act as Ind, UE Funct Exercise/Act, UE Neuromus Re-Ed/Coord Treatment Duration: October 01, 2018 Frequency: At least 5 of 7 days/Wk (IRF) Estimated Hrs Per Day: 1.5 hours per day Rehab Potential: Fair Time/GCodes Start Time: 13:30 Stop Time: 14:15 Total Time Billed (hr/min): 45 Billed Treatment Time 1 visit, ADLx2(30minutes), EX(15minutes) EVENS MARKS OT September 10, 2018 14:59
--- NOTE | 2018-09-10 15:05 | Physical Therapy Daily Note ---
PT Daily Note-Current Subjective Patient in bed pre tx, agrees to PT, has no complaints of pain. Appearance Patient in bed post tx with nurse call, phone, tray, all needs met. Heel protector boot on right foot. Mental Status Patient Orientation: Person, Place, Situation Transfers Therapy Code Descriptions/Definitions Functional [place] Measure: 0=Not Assessed/NA 4=Minimal Assistance 1=Total Assistance 5=Supervision or Setup 2=Maximal Assistance 6=Modified [place] 3=Moderate Assistance 7=Complete [place] Therapy Quality Codes: 6 Independent with activity with or without an assistive device 5 Patient requires set up or clean up by helper. Patient completes activity by themselves 4 Supervision or touching assist (CGA). [place] provide cues , steadying assist 3 The helper provides less than half the effort to complete the activity 2 The helper provides more than half the effort to complete the activity 1 Dependent. The helper does all the effort to complete an activity 7 Patient refused to complete or attempt activity 9 The patient did not perform the activity before the current illness or injury 88 Not attempted due to Medical conditions or safety concerns Exercises PROM/stretching in left leg all planes. AAROM leg flexion and extension in the left side x10. Treatments stretching, AAROM Assessment Current Status: Fair Progress No contractures. PT Short Term Goals Short Term Goals Time Frame: September 17, 2018 Gait (FIM): 1 Gait Distance Comment: 20' Gait Level of Assist: 3 Gait Assistive Device: Walker Lior Wheelchair Distance: 150'x2 PT Skilled Nursing Goals [place] Miner Blasting Goals PT Skilled Nursing Goals Time Frame: October 01, 2018 Transfers (B,C,W/C) (FIM): 4 Sit to Lying (QC): 4 Lying-Sitting on Side/Bed(QC): 4 Sit to Stand (QC): 4 Rollin Roll Left to Right (QC): 4 Chair/Pqv-gl-Qbadd Xfer(QC): 4 Car Transfer (QC): 4 Gait (FIM): 1 Distance: 40' Walk 10 feet (QC): 3 Walk 10ft-Uneven Surface(QC): 3 Gait Level of Assist: 4 Gait Assistive Device: Walker Lior Stairs (FIM): 1 # of Steps: 1 1 Step (curb) (QC): 3 Stairs Level Of Assist: 4 PT Plan Problem List Problem List: Activity Tolerance, Functional Strength, Safety, Balance, Gait, Transfer, Bed Mobility, ROM Treatment/Plan Treatment Plan: Continue Plan of Care Treatment Plan: Bed Mobility, Concurrent Therapy, Education, Functional Activity Linda, Functional Strength, Group Therapy, Gait, Safety, Therapeutic Exercise, Transfers Treatment Duration: October 01, 2018 Frequency: At least 5 of 7 days/Wk (IRF) Estimated Hrs Per Day: 1.5 hours per day Patient and/or Family Agrees t: Yes Safety Risks/Education Patient Education: Correct Positioning, Safety Issues Teaching Recipient: Patient Teaching Methods: Demonstration, Discussion Response to Teaching: Reinforcement Needed Time/GCodes Time In: 1450 Time Out: 1505 Total Billed Treatment Time: 15 Total Billed Treatment 1 visit EX 15' ALINE SÁNCHEZ PT September 10, 2018 15:05
[2018-09-10 17:07] VITALS: BP 115/75
[2018-09-10] MEDS: ATORVASTATIN 80 MG (LIPITOR) TABLET PO SCH (20:49)
[2018-09-11 05:10] VITALS: BP 134/79
[2018-09-11] MEDS: POLYETHYLENE GLYCOL 17 GM (MIRALAX) PACK PO SCH ×2 (09:00→20:53)
[2018-09-11] MEDS: SENNA W/DOCUSATE (SENOKOT S) TABLET PO SCH ×2 (09:11→20:53)
[2018-09-11] MEDS: CLOPIDOGREL 75 MG (PLAVIX) TABLET PO SCH (09:11)
[2018-09-11] MEDS: lisINopril 20 MG (PRINIVIL) TABLET PO SCH (09:11)
[2018-09-11] MEDS: DOCUSATE SODIUM 100 MG (COLACE) CAP PO SCH ×2 (09:11→20:53)
--- NOTE | 2018-09-11 10:45 | Physical Therapy Daily Note ---
PT Daily Note-Current Subjective AGreeable to PT. Reports she did not sleep well last night. Pain Location: Right Location Body Site: Arm Pain Description: Ache (pins and needles.) Mental Status Patient Orientation: Person, Place, Time, Situation Transfers Therapy Code Descriptions/Definitions Functional [place] Measure: 0=Not Assessed/NA 4=Minimal Assistance 1=Total Assistance 5=Supervision or Setup 2=Maximal Assistance 6=Modified [place] 3=Moderate Assistance 7=Complete [place] Therapy Quality Codes: 6 Independent with activity with or without an assistive device 5 Patient requires set up or clean up by helper. Patient completes activity by themselves 4 Supervision or touching assist (CGA). [place] provide cues , steadying assist 3 The helper provides less than half the effort to complete the activity 2 The helper provides more than half the effort to complete the activity 1 Dependent. The helper does all the effort to complete an activity 7 Patient refused to complete or attempt activity 9 The patient did not perform the activity before the current illness or injury 88 Not attempted due to Medical conditions or safety concerns Treatments Pt transferred supin to /from sit EOB with skilled cues for sequencing and min assist. Sat EOB unsupported without safety concerns. Perfomred WB activity through the right UE to work to reduce complaints of pain and to facilitate muscle activation. Sit to stand x 3 with lior walker. Pt requires min assist to come to a stand and skilled cues for sequencing; max assist to support right LE in standing. Worked on right knee and hip extension with mod to max assist ; weight shifting right with assist to maintain WB through the right LE. Pt able to better achieve hip and knee extension as treatment progressed; although continued to need assist. Pt in bed post treatment with right UE elevated and heel protector right. Assessment Current Status: Good Progress Improved ability corrina attain hip/knee extension in standing with skilled intervention this date. PT Short Term Goals Short Term Goals Time Frame: September 17, 2018 Gait (FIM): 1 Gait Distance Comment: 20' Gait Level of Assist: 3 Gait Assistive Device: Walker Lior Wheelchair Distance: 150'x2 PT Microelectronics Engineer Goals Microelectronics Engineer Goals PT Shelter Goals Time Frame: October 01, 2018 Transfers (B,C,W/C) (FIM): 4 Sit to Lying (QC): 4 Lying-Sitting on Side/Bed(QC): 4 Sit to Stand (QC): 4 Rollin Roll Left to Right (QC): 4 Chair/Wyk-dr-Ydidl Xfer(QC): 4 Car Transfer (QC): 4 Gait (FIM): 1 Distance: 40' Walk 10 feet (QC): 3 Walk 10ft-Uneven Surface(QC): 3 Gait Level of Assist: 4 Gait Assistive Device: Walker Lior Stairs (FIM): 1 # of Steps: 1 1 Step (curb) (QC): 3 Stairs Level Of Assist: 4 PT Plan Problem List Problem List: Activity Tolerance, Functional Strength, Safety, Balance, Gait, Transfer, Bed Mobility Treatment/Plan Treatment Plan: Continue Plan of Care Treatment Plan: Bed Mobility, Concurrent Therapy, Education, Functional Activity Linda, Functional Strength, Group Therapy, Gait, Safety, Therapeutic Exercise, Transfers Treatment Duration: October 01, 2018 Frequency: At least 5 of 7 days/Wk (IRF) Estimated Hrs Per Day: 1.5 hours per day Patient and/or Family Agrees t: Yes Safety Risks/Education Patient Education: Disease Process Teaching Recipient: Patient Teaching Methods: Discussion Response to Teaching: Verbalize Understanding Time/GCodes Time In: 920 Time Out: 1000 Total Billed Treatment Time: 40 Total Billed Treatment visit FA 40 TJ REVELES PT September 11, 2018 10:45
--- NOTE | 2018-09-11 11:32 | Occupational Ther Daily Note ---
OT Current Status-Daily Note Subjective Pt alert and agreeable to OT. Pt states that she did not sleep well the previous night due to discomfort through right shoulder and right hip. Pt's family and friends present throughout duration of tx. Mental Status/Objective Therapy Code Descriptions/Definitions Functional [place] Measure: 0=Not Assessed/NA 4=Minimal Assistance 1=Total Assistance 5=Supervision or Setup 2=Maximal Assistance 6=Modified [place] 3=Moderate Assistance 7=Complete [place] ADL-Treatment Therapy Code Descriptions/Definitions Functional [place] Measure: 0=Not Assessed/NA 4=Minimal Assistance 1=Total Assistance 5=Supervision or Setup 2=Maximal Assistance 6=Modified [place] 3=Moderate Assistance 7=Complete [place] Therapy Quality Codes: 6 Independent with activity with or without an assistive device 5 Patient requires set up or clean up by helper. Patient completes activity by themselves 4 Supervision or touching assist (CGA). [place] provide cues , steadying assist 3 The helper provides less than half the effort to complete the activity 2 The helper provides more than half the effort to complete the activity 1 Dependent. The helper does all the effort to complete an activity 7 Patient refused to complete or attempt activity 9 The patient did not perform the activity before the current illness or injury 88 Not attempted due to Medical conditions or safety concerns Other Treatment Pt tolerated PROM through RUE gross planes of motion with no complaints of pain. Humerus supported in glenohumeral joint throughout PROM of shoulder. Pt participated in NDT weight bearing techniques through joints of RUE to facilitate increased proprioceptive input through extremity. Pt tolerated weight bearing without complaints of pain. OT placed pt in sling this date to facilitate increased support through joint. Pt and pt's family educated on techniques for donning/doffing sling. Educated on rationale for sling, and benefits of wearing sling for increased support and to decrease subluxation. OT Short Term Goals Short Term Goals Time Frame: September 17, 2018 Bathing(FIM): 4 Upper Body Dressing(FIM): 3 Lower Body Dressing(FIM): 3 Toileting(FIM): 3 Toilet/Commode Transfer(FIM): 4 Additional Short Term Goals: 2-Verbalize Understanding, 3-ImproveStrength/Linda 1=Demonstrate adherence to instructed precautions during ADL tasks. 2=Patient will verbalize/demonstrate understanding of assistive devices/ modifications for ADL. 3=Patient will improve strength/tolerance for activity to enable patient to perform ADL's. OT [employer] Goals Care Home Goals Time Frame: October 01, 2018 Eating (FIM): 6 Eating (QC): 6 Groomin Oral Hygiene (QC): 6 Bathing(FIM): 5 Shower/Bathe Self (QC): 4 Upper Body Dressing(FIM): 5 Upper Body Dressing (QC): 5 Lower Body Dressing(FIM): 4 Lower Body Dressing (QC): 4 On/Off Footwear (QC): 4 Toileting(FIM): 5 Toileting Hygiene (QC): 4 Toilet/Commode Transfer(FIM): 5 Toilet/Commode Transfer (QC): 5 Shower Transfer(FIM): 5 Additional Goals: 2-Verbalize Understanding, 3-ImproveStrength/Linda 1=Demonstrate adherence to instructed precautions during ADL tasks. 2=Patient will verbalize/demonstrate understanding of assistive devices/ modifications for ADL. 3=Patient will improve strength/tolerance for activity to enable patient to perform ADL's. OT Education/Plan Discharge Recommendations Plan/Recommendations: Continue POC Treatment Plan/Plan of Care Patient would benefit from OT for education, treatment and training to promote independence in ADL's, mobility, safety and/or upper extremity function for ADL' s. Plan of Care: ADL Retraining, Functional Mobility, Group Exercise/Act as Ind, UE Funct Exercise/Act, UE Neuromus Re-Ed/Coord Treatment Duration: October 01, 2018 Frequency: At least 5 of 7 days/Wk (IRF) Estimated Hrs Per Day: 1.5 hours per day Rehab Potential: Fair Time/GCodes Start Time: 11:00 Stop Time: 11:30 Total Time Billed (hr/min): 30 Billed Treatment Time 1, EX1, NM1 KIRSTIN RILEY OT September 11, 2018 11:32
[2018-09-11] MEDS: BACLOFEN 10 MG (LIORESAL) TAB PO PRN ×2 (11:55→20:53)
--- NOTE | 2018-09-11 12:39 | PM&R Progress Note ---
Subjective HPI/CC On Admission Date Seen by Provider: September 11, 2018 Time Seen by Provider: 11:00 CC: CVA w/right sided weakness HPI: This is a 57yoWF clinic patient of Dr Guajardo at his [place] clinic who presented to the [facility] ER w/abrupt onset right sided deficit with dysarthria. tPA was administered and patient was then transferred to [facility] for neurological services. 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 No dysphagia was noted during acute care stay but dysarthria remains with word searching processes. She is in good spirits on Celexa per protocol. Constipation is resolving at time of DC. No pain is reported. Patient worked at a [employer] center prior to the CVA and is to a spouse who is disabled. Smoking cessation counseled. Patient was placed on statin therapy and Plavix was added to regimen with no side effects. 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 Subjective/Events-last exam Family at the bedside I met her and daughter and granddaughter Very supportive family Overall very motivated energetic and positive Finally had large bowel movements so that is back to normal Muscle spasms may improved with baclofen so I ordered that Has significant grief reaction since her daughter's one-year anniversary of her from cystic fibrosis is September 24 Checked meds and labs Conferred with quality assurance test program manager therapy notes Right arm is now in a sling Review of Systems General: Fatigue Neurological: Weakness, Numbness, Incoordination, Change in speech Objective Exam Vital Signs Vital Signs Date Time Temp Pulse Resp B/P (MAP) Pulse Ox O2 Delivery O2 Flow Rate FiO2 09/12/18 09:00 Room Air 09/12/18 05:13 97.0 65 16 141/82 (101) 98 Capillary Refill : General Appearance: No Apparent Distress, WD/WN, Chronically ill HEENT: PERRL/EOMI, Normal ENT Inspection, Pharynx Normal, Moist Mucous Membranes Neck: Full Range of Motion, Normal Inspection, Non Tender, Supple Respiratory: Chest Non Tender, Lungs Clear, Normal Breath Sounds, No Accessory Muscle Use, No Respiratory Distress Cardiovascular: Regular Rate, Rhythm, No Edema, No Gallop, No JVD, No Murmur Gastrointestinal: Normal Bowel Sounds, No Organomegaly, No Pulsatile Mass, Non Tender, Soft Back: Normal Inspection, No CVA Tenderness, No Vertebral Tenderness Extremity: Normal Capillary Refill, Normal Inspection, Normal Range of Motion, Non Tender, No Calf Tenderness, No Pedal Edema Neurologic/Psychiatric: Alert, Oriented x3, Abnormal Cerebellar Tests, Abnormal Gait, Depressed Affect, Motor Weakness (right sided 1/5 arm and leg), Other (dysarthria, word searching) Skin: Normal Color, Warm/Dry Lymphatic: No Adenopathy Results/Procedures Lab Patient resulted labs reviewed. FIM Transfers Therapy Code Descriptions/Definitions Functional [place] Measure: 0=Not Assessed/NA 4=Minimal Assistance 1=Total Assistance 5=Supervision or Setup 2=Maximal Assistance 6=Modified [place] 3=Moderate Assistance 7=Complete [place] Therapy Quality Codes: 6 Independent with activity with or without an assistive device 5 Patient requires set up or clean up by helper. Patient completes activity by themselves 4 Supervision or touching assist (CGA). [place] provide cues , steadying assist 3 The helper provides less than half the effort to complete the activity 2 The helper provides more than half the effort to complete the activity 1 Dependent. The helper does all the effort to complete an activity 7 Patient refused to complete or attempt activity 9 The patient did not perform the activity before the current illness or injury 88 Not attempted due to Medical conditions or safety concerns Mental Status/Objective Comprehension: 7 Expression: 7 Social Interaction: 7 Problem Solvin Memory: 7 ADL-Treatment Feedin (set up by report) Eating (QC): 5 Groomin Oral Hygiene (QC): 4 Bathin Shower/Bathe Self (QC): 3 Upper Extremity Dressin Upper Body Dressing (QC): 2 Lower Extremity Dressin Lower Body Dressing (QC): 2 On/Off Footwear (QC): 2 Toilet/Commode Transfer: 3 Toilet Transfer (QC): 3 Shower: 3 Assessment/Plan Assessment and Plan Assess & Plan/Chief Complaint Assessment: CVA w/right sided weakness Dysarthria Incontinence Constipation-resolved 09/11/18 Smoker HLP Plan: IRF protocols BM regimen Smoking cessation Fall risk prevention Monitor BP (1) CVA (cerebral vascular accident) (2) Constipation (3) Dysarthria (4) Depression (5) Grief reaction (6) Hyperlipidemia (7) Incontinence of urine (8) Right sided weakness (9) Smoker MILLY KING DO September 11, 2018 12:39
[2018-09-11 18:00] VITALS: BP 143/84
[2018-09-11] MEDS: ATORVASTATIN 80 MG (LIPITOR) TABLET PO SCH (20:53)
[2018-09-12 05:13] VITALS: BP 141/82
[2018-09-12] MEDS: CLOPIDOGREL 75 MG (PLAVIX) TABLET PO SCH (08:37)
[2018-09-12] MEDS: DOCUSATE SODIUM 100 MG (COLACE) CAP PO SCH ×2 (08:37→20:26)
[2018-09-12] MEDS: BACLOFEN 10 MG (LIORESAL) TAB PO PRN ×3 (08:37→20:25)
[2018-09-12] MEDS: lisINopril 20 MG (PRINIVIL) TABLET PO SCH (08:37)
[2018-09-12] MEDS: POLYETHYLENE GLYCOL 17 GM (MIRALAX) PACK PO SCH ×2 (09:00→20:26)
[2018-09-12] MEDS: SENNA W/DOCUSATE (SENOKOT S) TABLET PO SCH ×2 (09:00→20:26)
--- NOTE | 2018-09-12 11:03 | Individualized Plan of Care ---
Individualized Plan of Care Rehab Nursing IPOC Order Admission Date September 09, 2018 at 22:22 Current Orders Orders Admission Order(Inpt,Obs,Sdc) (09/09/18 17:09) Vital Signs: Per Unit Policy ( ,16,00 (09/09/18 17:09) Environmental Services Associate-Inpt Rehab Con (09/09/18 17:09) Rehab Nursing Orders-Ipoc (09/09/18 17:09) Physical Therapy Rehab Orders (09/09/18 17:09) Occupational Therapy Rehab Ord (09/09/18 17:09) Speech Therapy Rehab Orders (09/09/18 17:09) General/Regular (09/10/18 Breakfast) Intake & Output (09/09/18 17:09) Precautions (Aru) (09/09/18 17:09) Weekly Weight (Lbs) WEEK (09/09/18 17:09) Rehab-Intensity Of Therapy (09/09/18 17:09) Cbc With Automated Diff (09/10/18 06:00) Comprehensive Metabolic Panel (09/10/18 06:00) Code/Resuscitation (09/09/18 17:09) Initiate Admission Nursing Pro .admission (09/09/18 17:09) Acetaminophen Tablet (Tylenol Tablet) (09/09/18 17:15) Alprazolam Tablet (Xanax Tablet) (09/09/18 17:15) Calcium Carbonate Chew Tablet (Antacid C (09/09/18 17:15) Docusate Sodium Capsule (Colace Capsule) (09/09/18 21:00) Lactulose Oral Solution (Enulose Oral So (09/09/18 17:15) Hydrocodone/Apap 5/325 Tablet (Lortab 5 (09/09/18 17:15) Loperamide Capsule (Imodium Capsule) (09/09/18 17:15) Melatonin Tablet (Melatonin Tablet) (09/09/18 17:15) Polyethylene Glycol Powder Pkt (Miralax (09/09/18 21:00) Ondansetron Oral Dissolve Tab (Zofran (09/09/18 17:15) Senna S Tablet (Senokot S Tablet) (09/09/18 21:00) Citalopram Tablet (Celexa Tablet) (09/10/18 09:00) Clopidogrel Tablet (Plavix Tablet) (09/10/18 09:00) Atorvastatin Tablet (Lipitor Tablet) (09/09/18 21:00) Lisinopril Tablet (Zestril Tablet) (09/10/18 09:00) Naproxen Tablet (Naprosyn Tablet) (09/09/18 23:00) Atorvastatin Tablet (Lipitor) (09/09/18 23:03) Request Ot Evaluate & Treat (09/10/18 08:00) Ambulate 08,12,20 (09/10/18 08:00) Sequential Compression Device 08,20 (09/10/18 08:00) Dvt/Vte Risk - Notifiy Physici 08 (09/10/18 08:00) Patient Visit (09/10/18 ) Speech Sound Lang Comp (09/10/18 ) Patient Visit (09/10/18 ) Pt Eval Moderate Complexity (09/10/18 ) Gait Training, Ea 15 Min (09/10/18 ) Exercise Therap, Ea 15 Min (09/10/18 ) Patient Visit (09/10/18 ) Wheelchair Mgmt/Propulsn 15min (09/10/18 ) Exercise Therap, Ea 15 Min (09/10/18 ) Patient Visit (09/10/18 ) Exercise Therap, Ea 15 Min (09/10/18 ) Patient Visit (09/11/18 ) Functional Activities, Ea 15 (09/11/18 ) Baclofen Tablet (Lioresal Tablet) (09/11/18 11:30) Rehab Nursing Orders: Ongoing Assess. of Function Status, Bladder Management, Bladder Scan, Bladder Training, Bowel Management, Bowel Training, Disease Management & Educaiton, DVT Prophylaxis, Fall Prevention, Fluid/Electrolyte/ Nutrition Mgmt, Medication Management & Education, Management of Risks & Complications, Management of Skin Intergrity, Pain Management, Patient/Family Support Intensity of Therapy to be met Patient to be seen: Min.3h per day/5 of 7d PT IPOC Problem List: Activity Tolerance, Functional Strength, Safety, Balance, Gait, Transfer, Bed Mobility Treatment Plan: Continue Plan of Care Bed Mobility, Concurrent Therapy, Education, Functional Activity Linda, Functional Strength, Group Therapy, Gait, Safety, Therapeutic Exercise, Transfers Treatment Duration: October 01, 2018 Frequency: At least 5 of 7 days/Wk (IRF) Estimated Hrs Per Day: 1.5 hours per day OT IPOC Problems: Decreased Activ Tolerance, Decreased UE Strength, Dependent Transfers , Impaired Coordination, Impaired Funct Balance, Impaired I ADL's, Impaired Self -Care Skills, Restricted Funct UE ROM OT Treatment, Training and Edu: Yes Plan of Care: ADL Retraining, Functional Mobility, Group Exercise/Act as Ind, UE Funct Exercise/Act, UE Neuromus Re-Ed/Coord Treatment Duration: October 01, 2018 Frequency: At least 5 of 7 days/Wk (IRF) Estimated Hrs Per Day: 1.[address] IPOC Speech Therapy Treatment Plan: Discontinue ST Treatment Duration: September 10, 2018 Frequency: 1 time per week Estimated Hrs Per Day: .25 hour per day Environmental Services Associate/Case Mgmt Environmental Services Associate/Case Managemen: Discharge Planning Dietitian/Sweatband Drummer Dietitian/Sweatband Drummer to monitor nutritional status and make changes and/or recommendations as needed and work with speech pathology on dietary upgrades as the occur. Physician IPOC Medical Issues being managed closely and that require the 24 hour availability of a physician: Monitor of blood pressure which is labile to prevent extension of stroke Major fall risk requiring close supervision Spastic muscles right side will require aggressive medication with close monitoring of side effects and oversedation Medical Issues: Bowel/Bladder Function, DVT Prophylaxis, Falls Precautions, Fluid/Electrolyte/Nutrition Balance, Pain Management Brief Synthesis of Preadmission Screen, Post-Admission Evaluation, and Therapy Evaluations: Physical therapy will work on ambulation due to catastrophic stroke with right- sided weakness Occupational therapy will focus on increasing independence for ADLs Medical Prognosis: Good Anticipated Length of Stay: 21 days MILLY KING DO September 12, 2018 11:03
--- NOTE | 2018-09-12 12:56 | PM&R Progress Note ---
Subjective HPI/CC On Admission Date Seen by Provider: September 12, 2018 Time Seen by Provider: 12:30 CC: CVA w/right sided weakness HPI: This is a 57yoWF clinic patient of Dr Guajardo at his [place] clinic who presented to the [facility] ER w/abrupt onset right sided deficit with dysarthria. tPA was administered and patient was then transferred to [facility] for neurological services. 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 No dysphagia was noted during acute care stay but dysarthria remains with word searching processes. She is in good spirits on Celexa per protocol. Constipation is resolving at time of DC. No pain is reported. Patient worked at a [employer] center prior to the CVA and is to a spouse who is disabled. Smoking cessation counseled. Patient was placed on statin therapy and Plavix was added to regimen with no side effects. 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 Subjective/Events-last exam Family at the bedside Very supportive family Overall very motivated energetic and positive Finally had large bowel movements again today so that is back to normal Muscle spasms have improved with baclofen so will maintain that Has significant grief reaction since her daughter's one-year anniversary of her from cystic fibrosis is September 24 and talks about it a lot Checked meds and labs Conferred with salvage winder and inspector therapy notes Right arm usually requires sling for comfort but she does not have it on today Labile BP continues Fell off to side of commode so will monitor for falls closely Sense of taste is now improved Review of Systems Neurological: Weakness, Numbness, Incoordination, Change in speech Objective Exam Vital Signs Vital Signs Date Time Temp Pulse Resp B/P (MAP) Pulse Ox O2 Delivery O2 Flow Rate FiO2 09/12/18 09:00 Room Air 09/12/18 05:13 97.0 65 16 141/82 (101) 98 Capillary Refill : General Appearance: No Apparent Distress, WD/WN, Chronically ill HEENT: PERRL/EOMI, Normal ENT Inspection, Pharynx Normal, Moist Mucous Membranes Neck: Full Range of Motion, Normal Inspection, Non Tender, Supple Respiratory: Chest Non Tender, Lungs Clear, Normal Breath Sounds, No Accessory Muscle Use, No Respiratory Distress Cardiovascular: Regular Rate, Rhythm, No Edema, No Gallop, No JVD, No Murmur Gastrointestinal: Normal Bowel Sounds, No Organomegaly, No Pulsatile Mass, Non Tender, Soft Back: Normal Inspection, No CVA Tenderness, No Vertebral Tenderness Extremity: Normal Capillary Refill, Normal Inspection, Normal Range of Motion, Non Tender, No Calf Tenderness, No Pedal Edema Neurologic/Psychiatric: Alert, Oriented x3, Abnormal Cerebellar Tests, Abnormal Gait, Depressed Affect, Motor Weakness (right sided 1/5 arm and leg), Other (dysarthria, word searching) Skin: Normal Color, Warm/Dry Lymphatic: No Adenopathy Results/Procedures Lab Patient resulted labs reviewed. FIM Transfers Therapy Code Descriptions/Definitions Functional [place] Measure: 0=Not Assessed/NA 4=Minimal Assistance 1=Total Assistance 5=Supervision or Setup 2=Maximal Assistance 6=Modified [place] 3=Moderate Assistance 7=Complete [place] Therapy Quality Codes: 6 Independent with activity with or without an assistive device 5 Patient requires set up or clean up by helper. Patient completes activity by themselves 4 Supervision or touching assist (CGA). [place] provide cues , steadying assist 3 The helper provides less than half the effort to complete the activity 2 The helper provides more than half the effort to complete the activity 1 Dependent. The helper does all the effort to complete an activity 7 Patient refused to complete or attempt activity 9 The patient did not perform the activity before the current illness or injury 88 Not attempted due to Medical conditions or safety concerns Mental Status/Objective Comprehension: 7 Expression: 7 Social Interaction: 7 Problem Solvin Memory: 7 ADL-Treatment Feedin (set up by report) Eating (QC): 5 Groomin Oral Hygiene (QC): 4 Bathin Shower/Bathe Self (QC): 3 Upper Extremity Dressin Upper Body Dressing (QC): 2 Lower Extremity Dressin Lower Body Dressing (QC): 2 On/Off Footwear (QC): 2 Toilet/Commode Transfer: 3 Toilet Transfer (QC): 3 Shower: 3 Assessment/Plan Assessment and Plan Assess & Plan/Chief Complaint Assessment: CVA w/right sided weakness Dysarthria Incontinence urinary Constipation-resolved 09/11/18 Smoker HLP Plan: IRF protocols BM regimen Smoking cessation Fall risk prevention Monitor BP Urinary continence training Baclofen for spastic muscles (1) CVA (cerebral vascular accident) (2) Constipation (3) Dysarthria (4) Depression (5) Grief reaction (6) Hyperlipidemia (7) Incontinence of urine (8) Right sided weakness (9) Smoker (10) Spasticity as late effect of cerebrovascular accident (CVA) (11) Risk for falls (12) Taste impairment MILLY KING DO September 12, 2018 12:56
[2018-09-12 16:29] VITALS: BP 138/86
[2018-09-12] MEDS: ATORVASTATIN 80 MG (LIPITOR) TABLET PO SCH (20:25)
[2018-09-13 05:25] VITALS: BP 139/84
[2018-09-13] MEDS: POLYETHYLENE GLYCOL 17 GM (MIRALAX) PACK PO SCH ×2 (07:59→21:13)
[2018-09-13] MEDS: SENNA W/DOCUSATE (SENOKOT S) TABLET PO SCH ×2 (08:00→21:13)
[2018-09-13] MEDS: DOCUSATE SODIUM 100 MG (COLACE) CAP PO SCH ×2 (08:00→21:13)
--- NOTE | 2018-09-13 08:11 | PM&R Progress Note ---
Subjective HPI/CC On Admission Date Seen by Provider: September 13, 2018 Time Seen by Provider: 08:15 CC: CVA w/right sided weakness HPI: This is a 57yoWF clinic patient of Dr Guajardo at his [place] clinic who presented to the [facility] ER w/abrupt onset right sided deficit with dysarthria. tPA was administered and patient was then transferred to [facility] for neurological services. 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 No dysphagia was noted during acute care stay but dysarthria remains with word searching processes. She is in good spirits on Celexa per protocol. Constipation is resolving at time of DC. No pain is reported. Patient worked at a [employer] center prior to the CVA and is to a spouse who is disabled. Smoking cessation counseled. Patient was placed on statin therapy and Plavix was added to regimen with no side effects. 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 Subjective/Events-last exam Psych consult will be placed and she is agreeable to that. Talks about her daughter who coming up 1 year anniversary on September 24 a lot. Will increase Celexa of that is recommended by behavior consult today. Overall doing much better. Participating in therapy. Overall denies any pain. Eating and drinking well. Dysarthria is improving and will be focused on by speech therapy. Bowels are moving. Conferred with RN. Reviewed therapy notes. Review of Systems General: Fatigue Neurological: Weakness, Numbness, Incoordination Objective Exam Vital Signs Vital Signs Date Time Temp Pulse Resp B/P (MAP) Pulse Ox O2 Delivery O2 Flow Rate FiO2 09/13/18 17:24 97.0 76 16 125/78 (94) 94 Room Air Capillary Refill : General Appearance: No Apparent Distress, WD/WN, Chronically ill HEENT: PERRL/EOMI, Normal ENT Inspection, Pharynx Normal, Moist Mucous Membranes Neck: Full Range of Motion, Normal Inspection, Non Tender, Supple Respiratory: Chest Non Tender, Lungs Clear, Normal Breath Sounds, No Accessory Muscle Use, No Respiratory Distress Cardiovascular: Regular Rate, Rhythm, No Edema, No Gallop, No JVD, No Murmur Gastrointestinal: Normal Bowel Sounds, No Organomegaly, No Pulsatile Mass, Non Tender, Soft Back: Normal Inspection, No CVA Tenderness, No Vertebral Tenderness Extremity: Normal Capillary Refill, Normal Inspection, Normal Range of Motion, Non Tender, No Calf Tenderness, No Pedal Edema Neurologic/Psychiatric: Alert, Oriented x3, Abnormal Cerebellar Tests, Abnormal Gait, Depressed Affect, Motor Weakness (right sided 1/5 arm and leg), Other (dysarthria, word searching) Skin: Normal Color, Warm/Dry Lymphatic: No Adenopathy Results/Procedures Lab Patient resulted labs reviewed. FIM Transfers Therapy Code Descriptions/Definitions Functional [place] Measure: 0=Not Assessed/NA 4=Minimal Assistance 1=Total Assistance 5=Supervision or Setup 2=Maximal Assistance 6=Modified [place] 3=Moderate Assistance 7=Complete [place] Therapy Quality Codes: 6 Independent with activity with or without an assistive device 5 Patient requires set up or clean up by helper. Patient completes activity by themselves 4 Supervision or touching assist (CGA). [place] provide cues , steadying assist 3 The helper provides less than half the effort to complete the activity 2 The helper provides more than half the effort to complete the activity 1 Dependent. The helper does all the effort to complete an activity 7 Patient refused to complete or attempt activity 9 The patient did not perform the activity before the current illness or injury 88 Not attempted due to Medical conditions or safety concerns Mental Status/Objective Comprehension: 7 Expression: 7 Social Interaction: 7 Problem Solvin Memory: 7 ADL-Treatment Feedin (set up by report) Eating (QC): 5 Groomin Oral Hygiene (QC): 4 Bathin Shower/Bathe Self (QC): 3 Upper Extremity Dressin Upper Body Dressing (QC): 2 Lower Extremity Dressin Lower Body Dressing (QC): 2 On/Off Footwear (QC): 2 Toilet/Commode Transfer: 3 Toilet Transfer (QC): 3 Shower: 3 Assessment/Plan Assessment and Plan Assess & Plan/Chief Complaint Assessment: CVA w/right sided weakness Dysarthria Incontinence urinary Constipation-resolved 09/11/18 Smoker HLP Plan: IRF protocols BM regimen Smoking cessation Fall risk prevention Monitor BP Urinary continence training Baclofen for spastic muscles Psych consult (1) CVA (cerebral vascular accident) (2) Constipation (3) Dysarthria (4) Depression (5) Grief reaction (6) Hyperlipidemia (7) Incontinence of urine (8) Right sided weakness (9) Smoker (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
[2018-09-13] MEDS: lisINopril 20 MG (PRINIVIL) TABLET PO SCH (08:27)
[2018-09-13] MEDS: CLOPIDOGREL 75 MG (PLAVIX) TABLET PO SCH (08:27)
--- NOTE | 2018-09-13 11:20 | Occupational Ther Daily Note ---
OT Current Status-Daily Note Subjective Pt alert, sitting in recliner. Pt agrees to therapy. Pt c/o pain in R hip. Mental Status/Objective Patient Orientation: Person, Place, Time, Situation Therapy Code Descriptions/Definitions Functional [place] Measure: 0=Not Assessed/NA 4=Minimal Assistance 1=Total Assistance 5=Supervision or Setup 2=Maximal Assistance 6=Modified [place] 3=Moderate Assistance 7=Complete [place] ADL-Treatment Pt declines shower, sponge bath or changing clothing. Pt agrees to grooming. Sitting at sink, pt able to complete own grooming. Therapy Code Descriptions/Definitions Functional [place] Measure: 0=Not Assessed/NA 4=Minimal Assistance 1=Total Assistance 5=Supervision or Setup 2=Maximal Assistance 6=Modified [place] 3=Moderate Assistance 7=Complete [place] Therapy Quality Codes: 6 Independent with activity with or without an assistive device 5 Patient requires set up or clean up by helper. Patient completes activity by themselves 4 Supervision or touching assist (CGA). [place] provide cues , steadying assist 3 The helper provides less than half the effort to complete the activity 2 The helper provides more than half the effort to complete the activity 1 Dependent. The helper does all the effort to complete an activity 7 Patient refused to complete or attempt activity 9 The patient did not perform the activity before the current illness or injury 88 Not attempted due to Medical conditions or safety concerns Grooming (FIM): 6 Oral Hygiene (QC): 6 On/Off Footwear (QC): 2 (Assist to don/doff socks and shoes.) Other Treatment Mod A with SPT. Working on w/c mobility around [facility], fatigued quickly though was able to maneuver around corners and through doors. Pt completed core strengthening, dynamic sitting tasks with skilled instructions. Pt has good static sitting balance and close SBA to CGA with dynamic sitting balance. Wt bearing through R UE to facilitate muscle contraction. Using tapping technique, muscle facilitation, AAROM with elbow flexion, wrist flex. Pronation with UE extended to neutral. PROM for shldr ROM in all planes. Taping to R shldr for shldr subluxation. After therapy, PT took over care of pt. All needs met. OT Short Term Goals Short Term Goals Time Frame: September 17, 2018 Bathing(FIM): 4 Upper Body Dressing(FIM): 3 Lower Body Dressing(FIM): 3 Toileting(FIM): 3 Toilet/Commode Transfer(FIM): 4 Additional Short Term Goals: 2-Verbalize Understanding, 3-ImproveStrength/Linda 1=Demonstrate adherence to instructed precautions during ADL tasks. 2=Patient will verbalize/demonstrate understanding of assistive devices/ modifications for ADL. 3=Patient will improve strength/tolerance for activity to enable patient to perform ADL's. OT Forensic Accountant Goals [facility] Goals Time Frame: October 01, 2018 Eating (FIM): 6 Eating (QC): 6 Groomin Oral Hygiene (QC): 6 Bathing(FIM): 5 Shower/Bathe Self (QC): 4 Upper Body Dressing(FIM): 5 Upper Body Dressing (QC): 5 Lower Body Dressing(FIM): 4 Lower Body Dressing (QC): 4 On/Off Footwear (QC): 4 Toileting(FIM): 5 Toileting Hygiene (QC): 4 Toilet/Commode Transfer(FIM): 5 Toilet/Commode Transfer (QC): 5 Shower Transfer(FIM): 5 Additional Goals: 2-Verbalize Understanding, 3-ImproveStrength/Linda 1=Demonstrate adherence to instructed precautions during ADL tasks. 2=Patient will verbalize/demonstrate understanding of assistive devices/ modifications for ADL. 3=Patient will improve strength/tolerance for activity to enable patient to perform ADL's. OT Education/Plan Problem List/Assessment Assessment: Decreased Activ Tolerance, Decreased UE Strength, Dependent Transfers, Impaired Bed Mobility, Impaired Coordination, Impaired Funct Balance , Impaired I ADL's, Impaired Self-Care Skills, Restricted Funct UE ROM Discharge Recommendations Plan/Recommendations: Continue POC Treatment Plan/Plan of Care Patient would benefit from OT for education, treatment and training to promote independence in ADL's, mobility, safety and/or upper extremity function for ADL' s. Plan of Care: ADL Retraining, Functional Mobility, Group Exercise/Act as Ind, UE Funct Exercise/Act, UE Neuromus Re-Ed/Coord Treatment Duration: October 01, 2018 Frequency: At least 5 of 7 days/Wk (IRF) Estimated Hrs Per Day: 1.5 hours per day Rehab Potential: Fair Time/GCodes Start Time: 09:45 Stop Time: 11:15 Total Time Billed (hr/min): 90 Billed Treatment Time 1 visit-ADL 2 (35 min) NM 4 (55 min) KUNCE,TJ LONG TERM CARE PHARMACIST September 13, 2018 11:20
--- NOTE | 2018-09-13 12:23 | Physical Therapy Daily Note ---
PT Daily Note-Current Subjective Pt sitting in W/C in Therapy Gym at end of OT tx upon arrival. Pt agrees to PT. Appearance Pt reports lack of feeling on R side due to CVA. Mental Status Patient Orientation: Person, Place, Situation Transfers Therapy Code Descriptions/Definitions Functional [place] Measure: 0=Not Assessed/NA 4=Minimal Assistance 1=Total Assistance 5=Supervision or Setup 2=Maximal Assistance 6=Modified [place] 3=Moderate Assistance 7=Complete [place] Therapy Quality Codes: 6 Independent with activity with or without an assistive device 5 Patient requires set up or clean up by helper. Patient completes activity by themselves 4 Supervision or touching assist (CGA). [place] provide cues , steadying assist 3 The helper provides less than half the effort to complete the activity 2 The helper provides more than half the effort to complete the activity 1 Dependent. The helper does all the effort to complete an activity 7 Patient refused to complete or attempt activity 9 The patient did not perform the activity before the current illness or injury 88 Not attempted due to Medical conditions or safety concerns Scootin Supine to/from Sit: 3 Sit to/from Stand: 3 Sit to Lying (QC): 3 Sit to Stand (QC): 3 Pt's R knee wants to buckle today and WAISTLINE JOINER OVERLOCK is required to block knee for transfers. Weight Bearing Right Lower Extremity: Right Weight Bearing/Tolerated Wheelchair Training Does the Pt Use a Wheelchair?: Yes Wheelchair Distance: 3=150 ft Distance: 150' Wheelchair Level of Assist: 4 Wheel 50 ft with 2 turns (QC): 4 Wheel 150 ft (QC): 4 Type of Wheelchair: Manual Exercises Supine Ex: Ankle pumps, Quad Set, Glut sets, Heel Slides, Straight leg raise, Hip abd/add Supine Reps: 15 Seated Therapy Exercises: Ankle pumps, Long arc quads, Hip flexion, Kicking activity Seated Reps: 20 Treatments Pt completes Seated EX in W/C. Pt practices Sit to stands at //bars with weight shifting with assist from WAISTLINE JOINER OVERLOCK for WBing. Pt propels W/C to room. Pt completes Supine Ex in bed at end of tx with all needs met. Assessment Current Status: Fair Progress Pt's R knee shira with standing today. PT Short Term Goals Short Term Goals Time Frame: September 17, 2018 Gait (FIM): 1 Gait Distance Comment: 20' Gait Level of Assist: 3 Gait Assistive Device: Walker Lior Wheelchair Distance: 150'x2 PT Crepe Sole Wire Brusher Goals Crepe Sole Wire Brusher Goals PT Custodial Goals Time Frame: October 01, 2018 Transfers (B,C,W/C) (FIM): 4 Sit to Lying (QC): 4 Lying-Sitting on Side/Bed(QC): 4 Sit to Stand (QC): 4 Rollin Roll Left to Right (QC): 4 Chair/Cpn-lc-Pjtkf Xfer(QC): 4 Car Transfer (QC): 4 Gait (FIM): 1 Distance: 40' Walk 10 feet (QC): 3 Walk 10ft-Uneven Surface(QC): 3 Gait Level of Assist: 4 Gait Assistive Device: Walker Lior Stairs (FIM): 1 # of Steps: 1 1 Step (curb) (QC): 3 Stairs Level Of Assist: 4 PT Plan Problem List Problem List: Activity Tolerance, Functional Strength, Safety, Balance, Gait, Transfer, Bed Mobility, ROM Treatment/Plan Treatment Plan: Continue Plan of Care Treatment Plan: Bed Mobility, Concurrent Therapy, Education, Functional Activity Linda, Functional Strength, Group Therapy, Gait, Safety, Therapeutic Exercise, Transfers Treatment Duration: October 01, 2018 Frequency: At least 5 of 7 days/Wk (IRF) Estimated Hrs Per Day: 1.5 hours per day Patient and/or Family Agrees t: Yes Safety Risks/Education Patient Education: Transfer Techniques, Correct Positioning, W/C Management, Safety Issues Teaching Recipient: Patient Teaching Methods: Discussion Response to Teaching: Verbalize Understanding Time/GCodes Time In: 1115 Time Out: 1215 Total Billed Treatment Time: 60 Total Billed Treatment 1, EX x2 (30m) & FA x2 (30m) G Codes Necessary: LISA Mendoza WAISTLINE JOINER OVERLOCK September 13, 2018 12:23
--- NOTE | 2018-09-13 16:33 | Physical Therapy Daily Note ---
PT Daily Note-Current Subjective Pt laying Supine in bed upon arrival. Pt agrees to PT. Mental Status Patient Orientation: Person, Place, Time, Situation Attachments: Other-See Comments (Heel Protector for RLE ) Transfers Therapy Code Descriptions/Definitions Functional [place] Measure: 0=Not Assessed/NA 4=Minimal Assistance 1=Total Assistance 5=Supervision or Setup 2=Maximal Assistance 6=Modified [place] 3=Moderate Assistance 7=Complete [place] Therapy Quality Codes: 6 Independent with activity with or without an assistive device 5 Patient requires set up or clean up by helper. Patient completes activity by themselves 4 Supervision or touching assist (CGA). [place] provide cues , steadying assist 3 The helper provides less than half the effort to complete the activity 2 The helper provides more than half the effort to complete the activity 1 Dependent. The helper does all the effort to complete an activity 7 Patient refused to complete or attempt activity 9 The patient did not perform the activity before the current illness or injury 88 Not attempted due to Medical conditions or safety concerns Weight Bearing Right Lower Extremity: Right Weight Bearing/Tolerated Exercises Supine Ex: Ankle pumps, Quad Set, Glut sets, Heel Slides, Straight leg raise, Hip abd/add Supine Reps: 15 Treatments Pt completes Supine Ex in bed due to fatigue. Pt & SEMICONDUCTOR MANUFACTURING TECHNICIAN discuss how PT Ex will improve strength for better transfers & mobility. Pt resting in bed at end of tx with all needs met. Assessment Current Status: Fair Progress Pt continues to be AAROM-PROM on most RLE Ex & AROM on LLE. PT Short Term Goals Short Term Goals Time Frame: September 17, 2018 Gait (FIM): 1 Gait Distance Comment: 20' Gait Level of Assist: 3 Gait Assistive Device: Walker Lior Wheelchair Distance: 150' PT Detention Goals Detention Goals PT Detention Goals Time Frame: October 01, 2018 Transfers (B,C,W/C) (FIM): 4 Sit to Lying (QC): 4 Lying-Sitting on Side/Bed(QC): 4 Sit to Stand (QC): 4 Rollin Roll Left to Right (QC): 4 Chair/Zwn-oz-Ohdxi Xfer(QC): 4 Car Transfer (QC): 4 Gait (FIM): 1 Distance: 40' Walk 10 feet (QC): 3 Walk 10ft-Uneven Surface(QC): 3 Gait Level of Assist: 4 Gait Assistive Device: Walker Lior Stairs (FIM): 1 # of Steps: 1 1 Step (curb) (QC): 3 Stairs Level Of Assist: 4 PT Plan Problem List Problem List: Activity Tolerance, Functional Strength, Safety, Balance, Gait, Transfer, Bed Mobility, ROM Treatment/Plan Treatment Plan: Continue Plan of Care Treatment Plan: Bed Mobility, Concurrent Therapy, Education, Functional Activity Linda, Functional Strength, Group Therapy, Gait, Safety, Therapeutic Exercise, Transfers Treatment Duration: October 01, 2018 Frequency: At least 5 of 7 days/Wk (IRF) Estimated Hrs Per Day: 1.5 hours per day Patient and/or Family Agrees t: Yes Safety Risks/Education Patient Education: Correct Positioning, Safety Issues Teaching Recipient: Patient Teaching Methods: Discussion Response to Teaching: Verbalize Understanding Time/GCodes Time In: 1300 Time Out: 1330 Total Billed Treatment Time: 30 Total Billed Treatment 1, Ex x2 (30m) G Codes Necessary: LISA Mendoza SEMICONDUCTOR MANUFACTURING TECHNICIAN September 13, 2018 16:33
[2018-09-13 17:24] VITALS: BP 125/78
--- NOTE | 2018-09-13 19:21 | NUR ---
bedside report received from NANCY MOODY, assume care of pt
--- NOTE | 2018-09-13 21:00 | NUR ---
assessments & interventions completed, see assessments & interventions, pt up with 2 people assist & cane to bedside commode, pt scored 10 on [facility] STROKE SCALE
[2018-09-13] MEDS: ATORVASTATIN 80 MG (LIPITOR) TABLET PO SCH (21:14)
[2018-09-13] MEDS: BACLOFEN 10 MG (LIORESAL) TAB PO PRN (21:17)
--- NOTE | 2018-09-13 21:17 | NUR ---
pt requesting muscle relaxer, Baclofen 10mg po given
[2018-09-14 05:42] VITALS: BP 151/86
--- NOTE | 2018-09-14 07:18 | NUR ---
bedside report given to NANCY MOODY
--- NOTE | 2018-09-14 08:32 | PM&R Progress Note ---
Subjective HPI/CC On Admission Date Seen by Provider: September 14, 2018 Time Seen by Provider: 08:10 CC: CVA w/right sided weakness HPI: This is a 57yoWF clinic patient of Dr Guajardo at his [place] clinic who presented to the [facility] ER w/abrupt onset right sided deficit with dysarthria. tPA was administered and patient was then transferred to [facility] for neurological services. 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 No dysphagia was noted during acute care stay but dysarthria remains with word searching processes. She is in good spirits on Celexa per protocol. Constipation is resolving at time of DC. No pain is reported. Patient worked at a [employer] center prior to the CVA and is to a spouse who is disabled. Smoking cessation counseled. Patient was placed on statin therapy and Plavix was added to regimen with no side effects. 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 Subjective/Events-last exam Psych evaluation behavioral health consult will be at 2 PM today. Denies any pain. Baclofen is really helping with the spastic muscles on the right side. Bowels are moving. Urinary incontinence is really improving with bladder training. Participating in therapies. Eating and drinking well. Dysarthria is improving and will be focused on by speech therapy. Bowels are moving. Conferred with RN. Reviewed therapy notes. Review of Systems General: Fatigue Musculoskeletal: arm pain Neurological: Weakness, Numbness, Incoordination Objective Exam Vital Signs Vital Signs Date Time Temp Pulse Resp B/P (MAP) Pulse Ox O2 Delivery O2 Flow Rate FiO2 09/14/18 20:25 Room Air 09/14/18 17:54 98.6 65 22 139/83 (101) 97 Capillary Refill : General Appearance: No Apparent Distress, WD/WN, Chronically ill HEENT: PERRL/EOMI, Normal ENT Inspection, Pharynx Normal, Moist Mucous Membranes Neck: Full Range of Motion, Normal Inspection, Non Tender, Supple Respiratory: Chest Non Tender, Lungs Clear, Normal Breath Sounds, No Accessory Muscle Use, No Respiratory Distress Cardiovascular: Regular Rate, Rhythm, No Edema, No Gallop, No JVD, No Murmur Gastrointestinal: Normal Bowel Sounds, No Organomegaly, No Pulsatile Mass, Non Tender, Soft Back: Normal Inspection, No CVA Tenderness, No Vertebral Tenderness Extremity: Normal Capillary Refill, Normal Inspection, Normal Range of Motion, Non Tender, No Calf Tenderness, No Pedal Edema Neurologic/Psychiatric: Alert, Oriented x3, Abnormal Cerebellar Tests, Abnormal Gait, Depressed Affect, Motor Weakness (right sided 1/5 arm and leg), Other (dysarthria, word searching) Skin: Normal Color, Warm/Dry Lymphatic: No Adenopathy Results/Procedures Lab Patient resulted labs reviewed. FIM Transfers Therapy Code Descriptions/Definitions Functional [place] Measure: 0=Not Assessed/NA 4=Minimal Assistance 1=Total Assistance 5=Supervision or Setup 2=Maximal Assistance 6=Modified [place] 3=Moderate Assistance 7=Complete [place] Therapy Quality Codes: 6 Independent with activity with or without an assistive device 5 Patient requires set up or clean up by helper. Patient completes activity by themselves 4 Supervision or touching assist (CGA). [place] provide cues , steadying assist 3 The helper provides less than half the effort to complete the activity 2 The helper provides more than half the effort to complete the activity 1 Dependent. The helper does all the effort to complete an activity 7 Patient refused to complete or attempt activity 9 The patient did not perform the activity before the current illness or injury 88 Not attempted due to Medical conditions or safety concerns Mental Status/Objective Comprehension: 7 Expression: 7 Social Interaction: 7 Problem Solvin Memory: 7 ADL-Treatment Feedin (set up by report) Eating (QC): 5 Groomin Oral Hygiene (QC): 6 Bathin Shower/Bathe Self (QC): 3 Upper Extremity Dressin Upper Body Dressing (QC): 2 Lower Extremity Dressin Lower Body Dressing (QC): 2 On/Off Footwear (QC): 2 (Assist to don/doff socks and shoes.) Toilet/Commode Transfer: 3 Toilet Transfer (QC): 3 Shower: 3 Assessment/Plan Assessment and Plan Assess & Plan/Chief Complaint Assessment: CVA w/right sided weakness Dysarthria Incontinence urinary Constipation-resolved 09/11/18 Smoker HLP Plan: IRF protocols BM regimen Smoking cessation Fall risk prevention Monitor BP Urinary continence training Baclofen for spastic muscles Psych consult today Disability papers per SW (1) CVA (cerebral vascular accident) (2) Constipation (3) Dysarthria (4) Depression (5) Grief reaction (6) Hyperlipidemia (7) Incontinence of urine (8) Right sided weakness (9) Smoker (10) Spasticity as late effect of cerebrovascular accident (CVA) (11) Risk for falls (12) Taste impairment MILLY KING DO September 14, 2018 08:32
[2018-09-14] MEDS: lisINopril 20 MG (PRINIVIL) TABLET PO SCH (09:07)
[2018-09-14] MEDS: CLOPIDOGREL 75 MG (PLAVIX) TABLET PO SCH (09:07)
[2018-09-14] MEDS: POLYETHYLENE GLYCOL 17 GM (MIRALAX) PACK PO SCH ×2 (09:08→19:27)
[2018-09-14] MEDS: SENNA W/DOCUSATE (SENOKOT S) TABLET PO SCH ×2 (09:08→19:27)
[2018-09-14] MEDS: DOCUSATE SODIUM 100 MG (COLACE) CAP PO SCH ×2 (09:08→19:26)
--- NOTE | 2018-09-14 09:37 | Occupational Ther Daily Note ---
OT Current Status-Daily Note Subjective Pt in bed, agrees to treatment. Has no reports of pain this am. Mental Status/Objective Therapy Code Descriptions/Definitions Functional [place] Measure: 0=Not Assessed/NA 4=Minimal Assistance 1=Total Assistance 5=Supervision or Setup 2=Maximal Assistance 6=Modified [place] 3=Moderate Assistance 7=Complete [place] ADL-Treatment Pt supine to sit with minimal assistance. Increased time to scoot to EOB. Pt requests shower this morning. Transfer EOB to w/c with moderate assistance. To restroom via w/c. Transfer w/c <-> shower bench with moderate assistance using grab bar for balance, skilled cues for technique and safety. Pt doffed shirt with minimal assistance. Required max assist to doff bra. Doffed lower body clothing with mod assist. Seated bathing completed using hand held shower. Pt able to wash chest, abdomen, right UE, tawny area, and bilateral upper legs. Min assist for balance while washing lower legs/feet. Pt washes buttocks by weight shifting to the side. Pt donned sports bra with max assist. Donned pullover shirt with mod assist. Pt required assist to thread bilateral LE into Depends and pants. Stood with mod assist, but required assist to complete pant hike. Dons left sock with SBA. Donned right sock with mod assist. Grooming tasks completed seated at sink. Pt combed hair with SBA. Brushed teeth with set up. Pt requires increased time for ADL tasks. Transfer to chair with mod assist. Pt sitting in chair with needs met after session. Therapy Code Descriptions/Definitions Functional [place] Measure: 0=Not Assessed/NA 4=Minimal Assistance 1=Total Assistance 5=Supervision or Setup 2=Maximal Assistance 6=Modified [place] 3=Moderate Assistance 7=Complete [place] Therapy Quality Codes: 6 Independent with activity with or without an assistive device 5 Patient requires set up or clean up by helper. Patient completes activity by themselves 4 Supervision or touching assist (CGA). [place] provide cues , steadying assist 3 The helper provides less than half the effort to complete the activity 2 The helper provides more than half the effort to complete the activity 1 Dependent. The helper does all the effort to complete an activity 7 Patient refused to complete or attempt activity 9 The patient did not perform the activity before the current illness or injury 88 Not attempted due to Medical conditions or safety concerns Grooming (FIM): 5 Bathing (FIM): 4 Upper Body (FIM): 3 Lower Body Dressing (FIM): 2 Shower Transfer(FIM): 3 Education OT Patient Education: Modified ADL techniques Teaching Recipient: Patient Teaching Methods: Discussion Response to Teaching: Verbalize Understanding OT Short Term Goals Short Term Goals Time Frame: September 17, 2018 Bathing(FIM): 4 Upper Body Dressing(FIM): 3 Lower Body Dressing(FIM): 3 Toileting(FIM): 3 Toilet/Commode Transfer(FIM): 4 Additional Short Term Goals: 2-Verbalize Understanding, 3-ImproveStrength/Linda 1=Demonstrate adherence to instructed precautions during ADL tasks. 2=Patient will verbalize/demonstrate understanding of assistive devices/ modifications for ADL. 3=Patient will improve strength/tolerance for activity to enable patient to perform ADL's. OT Senior Living Goals Senior Living Goals Time Frame: October 01, 2018 Eating (FIM): 6 Eating (QC): 6 Groomin Oral Hygiene (QC): 6 Bathing(FIM): 5 Shower/Bathe Self (QC): 4 Upper Body Dressing(FIM): 5 Upper Body Dressing (QC): 5 Lower Body Dressing(FIM): 4 Lower Body Dressing (QC): 4 On/Off Footwear (QC): 4 Toileting(FIM): 5 Toileting Hygiene (QC): 4 Toilet/Commode Transfer(FIM): 5 Toilet/Commode Transfer (QC): 5 Shower Transfer(FIM): 5 Additional Goals: 2-Verbalize Understanding, 3-ImproveStrength/Linda 1=Demonstrate adherence to instructed precautions during ADL tasks. 2=Patient will verbalize/demonstrate understanding of assistive devices/ modifications for ADL. 3=Patient will improve strength/tolerance for activity to enable patient to perform ADL's. OT Education/Plan Discharge Recommendations Plan/Recommendations: Continue POC Treatment Plan/Plan of Care Patient would benefit from OT for education, treatment and training to promote independence in ADL's, mobility, safety and/or upper extremity function for ADL' s. Plan of Care: ADL Retraining, Functional Mobility, Group Exercise/Act as Ind, UE Funct Exercise/Act, UE Neuromus Re-Ed/Coord Treatment Duration: October 01, 2018 Frequency: At least 5 of 7 days/Wk (IRF) Estimated Hrs Per Day: 1.5 hours per day Rehab Potential: Fair Time/GCodes Start Time: 08:00 Stop Time: 09:20 Total Time Billed (hr/min): 80 Billed Treatment Time 1 visit, ADLx5(80minutes) EVENS MARKS OT September 14, 2018 09:37
--- NOTE | 2018-09-14 11:00 | NUR ---
Pastoral care visit.
--- NOTE | 2018-09-14 12:19 | Physical Therapy Daily Note ---
PT Daily Note-Current Subjective Pt. states her pants are too tight and she would like to toilet and feels it is a good time to change them. Pt. also requests her laundry be started so she can have some clean clothes that might fit better. Pt. states she felt restricted with the arm sling on RUE previously but feels fine with it today during gait and stance Pain Location: No Pain Reported Mental Status Patient Orientation: Normal For Age Attachments: Other-See Comments (initiated use of AO and knee immoblizer RLE this date) Transfers Therapy Code Descriptions/Definitions Functional [place] Measure: 0=Not Assessed/NA 4=Minimal Assistance 1=Total Assistance 5=Supervision or Setup 2=Maximal Assistance 6=Modified [place] 3=Moderate Assistance 7=Complete [place] Therapy Quality Codes: 6 Independent with activity with or without an assistive device 5 Patient requires set up or clean up by helper. Patient completes activity by themselves 4 Supervision or touching assist (CGA). [place] provide cues , steadying assist 3 The helper provides less than half the effort to complete the activity 2 The helper provides more than half the effort to complete the activity 1 Dependent. The helper does all the effort to complete an activity 7 Patient refused to complete or attempt activity 9 The patient did not perform the activity before the current illness or injury 88 Not attempted due to Medical conditions or safety concerns Transfers (B, C, W/C) (FIM): 2 Scootin Sit to/from Stand: 2 Bed to/from Chair: 2 Weight Bearing Right Lower Extremity: Right Weight Bearing/Tolerated Gait Training Does the Patient Walk?: Yes Gait (FIM): 1 Distance (FIM): 1=up to 49 ft (12ftx4) Gait Level of Assist: 2 Gait Persons Needed: 1 (and one to push w/c close behind) Gait Assistive Device: Parallel Bars (and single rail in thakkar) needs max assist to stabilize RLE as well as advancing it approx 75 % of the time, worked in parallel bars for stance and pre gait wt shift as well as LE advancement on right. needs w/c close behind and assist to affix feet in proper GLEN etc. pt. wt bearing heavily on left hand on rail. RUE flail so sling on RUE makes gait safer and more stable Exercises Seated Therapy Exercises: Sit to stand (max assist 10 trials), Long arc quads ( ssist), Hip abd/add (assist) Treatments pt. able to assist on left for pulling pants down and up during toileting and was able to cleanse self, max assist 1, for toileting and TRF all to left Assessment Current Status: Fair Progress max to mod assist all TRFs PT Short Term Goals Short Term Goals Time Frame: September 17, 2018 Gait (FIM): 1 Gait Distance Comment: 20' Gait Level of Assist: 3 Gait Assistive Device: Walker Lior Wheelchair Distance: 150' PT Coffee Blender Goals Coffee Blender Goals PT Detention Goals Time Frame: October 01, 2018 Transfers (B,C,W/C) (FIM): 4 Sit to Lying (QC): 4 Lying-Sitting on Side/Bed(QC): 4 Sit to Stand (QC): 4 Rollin Roll Left to Right (QC): 4 Chair/Rkr-kq-Kgdxv Xfer(QC): 4 Car Transfer (QC): 4 Gait (FIM): 1 Distance: 40' Walk 10 feet (QC): 3 Walk 10ft-Uneven Surface(QC): 3 Gait Level of Assist: 4 Gait Assistive Device: Walker Lior Stairs (FIM): 1 # of Steps: 1 1 Step (curb) (QC): 3 Stairs Level Of Assist: 4 PT Plan Treatment/Plan Treatment Plan: Continue Plan of Care Treatment Plan: Bed Mobility, Concurrent Therapy, Education, Functional Activity Linda, Functional Strength, Group Therapy, Gait, Safety, Therapeutic Exercise, Transfers Treatment Duration: October 01, 2018 Frequency: At least 5 of 7 days/Wk (IRF) Estimated Hrs Per Day: 1.5 hours per day Patient and/or Family Agrees t: Yes Safety Risks/Education Patient Education: Gait Training, Transfer Techniques, Correct Positioning, Disease Process, Safety Issues Teaching Recipient: Patient Teaching Methods: Demonstration, Discussion Response to Teaching: Verbalize Understanding, Return Demonstration, Reinforcement Needed Time/GCodes Time In: 1105 Time Out: 1210 Total Billed Treatment Time: 65 Total Billed Treatment 1,NM35m,FA30m G Codes Necessary: GEOVANNY Pappas CUSTOMER SERVICE PROFESSIONAL September 14, 2018 12:19
--- NOTE | 2018-09-14 14:38 | Therapy Group Daily Note ---
Therapy Daily Group Note Patient Education Topic Home Safety Exercises LE Seated Exercise, UE Exercise Session Ratio (pt:therapist): 3:1 Goal of Session: Education on ARU Expectations Goal Met for this Session: Yes Pt Benefit of Group: Contributions to Others, Increased Functional Safety, Increased Functional Strength, Recognition of Peers, Socialization Other/Notes Pt. participated in group PT OT session this date . Pt. came and went via w/c and required mod assist in out w/c and bed. Pt. was pleasant and social and shared her name, current resident city and fun question answer with each volley/ ball she caught. Pts interacted and laughed . Volleyball with net and pts divided on each side to promote hand/eye coordination, gross motor activity for increased activity tolerance. Volley game elicited core strength while engaging UE coordination. Pt. to room after session with charles at hand and needs met Start Time: 13:00 Stop Time: 14:10 Total Billed Treatment Time: 70 Total Billed Treatment 1,GRP GEOVANNY YATES PIN DRAFTER OPERATOR September 14, 2018 14:38
[2018-09-14 17:54] VITALS: BP 139/83
[2018-09-14] MEDS: ATORVASTATIN 80 MG (LIPITOR) TABLET PO SCH (20:13)
[2018-09-14] MEDS: BACLOFEN 10 MG (LIORESAL) TAB PO PRN (20:16)
[2018-09-15 05:08] VITALS: BP 132/66
--- NOTE | 2018-09-15 08:35 | Behavioral Health Consult ---
Consult- Consult Date Seen by Provider: September 14, 2018 Time Seen by Provider: 14:20 CPT Code: 38251 Psychodiagnostic Examination, 1 unit(s) Start Time: 2:20 pm Stop Time: 3:15 pm Chief Complaint: depression Referral: Eloisa Maciel is a 57-year-old, , female referred by Dr. Banks for a clinical diagnostic assessment. Information for this evaluation was gathered from self-report and medical records. Presenting Problem: The presenting clinical problem is depression. She reported she did not think she was depressed, but after talking with her family she thinks she is. She stated she has experienced situational depression in the past. She reported the day she went to the hospital was one year from the day she took her daughter to the hospital. She stated her daughter was intubated on and September 24, 2017. She reported her daughter had cystic fibrosis and had a double lung transplant. She stated she was her daughters caregiver before and after her transplant. She reported she made the decision to remove her daughter from the ventilator. She stated her daughter had a boyfriend that their relationship was inconsistent. She reported she holds a lot of anger towards this man. She stated the day she had the stroke she saw her daughters boyfriend and feels this contributed to her health. She reported she is also angry when people say they know how she is feeling about her daughters . She stated she does not want to be angry. She reported her son is friends with her daughters ex-boyfriend and this is stressful for her. She stated she does not think about herself. She reported she takes care of everyone else. She reported she is worried about the medical bills and not receiving a pay check. She stated she is doing well with staying motivated but does not feel she is making as much progress as she should. She reported her sleep has been better with her shoulder being wrapped and taking baclofen. She stated her appetite is improving now that food has started to taste good again. She reported she thought she was doing well with her grief, but now is uncertain. She stated she feels her heart is in the pit of her stomach. She reported she does not want to cry all the time. Overall symptoms observed or reported requiring current level of care include anergia, anger, anxiety, depressed mood, familial stress/strain, grief, guilt, medical problems, and worry. Observations/Mental Status: Eloisa was sitting in a chair when therapist arrived. Overall appearance was unremarkable clinically. Eloisa appeared to be an adequate historian. Observed gait and gross motor movements indicated protective guarding and limited movements. In regards to pain, no problems were reported. Kiley general approach to the evaluation was cooperative. Orientation was intact for person, place, time, and situation. Eloisa evidenced good understanding of the reason for the appointment. Kiley in-session behavior was cooperative. The predominant mood was depressed with affect appropriate to expressed concerns and presenting problem. Immediate attention and concentration was grossly intact. Memory functioning appeared to be intact. Level of intellectual functioning compared to same age peers was estimated to be in the average range. Thought processes were found to be generally logical, coherent and goal directed. Thought content appeared normal. There was no report or evidence of hallucinations or delusions. Psychomotor functioning was within normal limits. Tone of voice was normal and controlled. Expressive speech was marked by fluent speech and language. Eye contact was good. Insight was average. Overall, style of interacting during the appointment was appropriate and motivated. Current/Previous Mental Health Treatment: Past psychiatric history was reported as was on Paxil in the past but did not like how it made her not feel. She stated she was started on Celexa but is not certain what she should feel to know if it is helping. History of self or other harm: none reported. Family history of mental health was reported as son and daughter have bipolar disorder. 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 Current medications: baclofen, celexa, Plavix, lisinopril, naproxen, and Lipitor. Drug allergies: penicillins and sulfa. Current physician is Dr. Guajardo. Relevant family medical history was grandfather had a stroke. 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 Legal History: Legal history was reported as none. Family and Social Histories: Eloisa currently lives with her and 30-year- old son. She reported she has a 37-year-old daughter that lives in [place]. She stated she plans to stay with her daughter once released from the hospital as her daughters home is all on one level. She stated there are a lot of stairs in her home and her is physically unable to help her with the stairs. She reported her son has issues with his back. She stated her has bipolar disorder. She reported she has been to her twice. She stated she her in 2001 and got back with him in 2005. She reported her kids encouraged her to divorce him and then encouraged her to get back with him. She stated he is a very different now than he was during their first marriage. Strengths/Weaknesses: Strengths/Resources: insightful and motivated for change Liabilities/Barriers: health problems and multiple life stressors Initial Treatment Plan: The anticipated long-term goal(s) include: acknowledge the depression verbally and resolve its causes, leading to normalization of the emotional state and implement appropriate relaxation and diversion activities to decrease the level of anxiety. The recommendations at this time include the following: individual outpatient psychotherapy. Eloisa is recommended to return within one week for follow-up. Further disposition will be made at that time. Eloisa verbalized understanding of these recommendations and an intention to comply with the proposed treatment plan and course of treatment. Summary of Assessment Information/Recommendations: Eloisa is a 57-year-old female with history of depression. Her daughter September 24, 2017 and she is struggling with the upcoming anniversary. Following current assessment, presenting problem and symptoms appear consistent with a preliminary diagnosis of F33.1 Major Depressive Disorder, Recurrent, Moderate. Current emotional symptoms are of moderate intensity. Overall, prognosis is estimated to be good. 1.It is recommended that Eloisa attend outpatient psychotherapy to process her daughters . Therapist talked with her about therapy and she was hesitant but did agree she probably needs to. She stated she will likely find a therapist in [place] since that is closer to her. 2.She is currently on a low dose of Celexa and an increase might help with her symptoms. She is hesitant about an increase as she is worried she will not be able to feel emotions. ICD-10 Diagnostic Impressions: F33.1 Major Depressive Disorder, Recurrent, Moderate F41.8 Other Specified Anxiety Disorder JONATHAN KHAN September 15, 2018 08:35
--- NOTE | 2018-09-15 08:40 | PM&R Progress Note ---
Subjective HPI/CC On Admission Date Seen by Provider: September 15, 2018 Time Seen by Provider: 08:15 CC: CVA w/right sided weakness HPI: This is a 57yoWF clinic patient of Dr Guajardo at his [facility] who presented to [facility] ER w/abrupt onset right sided deficit with dysarthria. tPA was administered and patient was then transferred to [facility] for neurological services. 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 No dysphagia was noted during acute care stay but dysarthria remains with word searching processes. She is in good spirits on Celexa per protocol. Constipation is resolving at time of DC. No pain is reported. Patient worked at a [employer] center prior to the CVA and is to a spouse who is disabled. Smoking cessation counseled. Patient was placed on statin therapy and Plavix was added to regimen with no side effects. 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 Subjective/Events-last exam Psych consult was performed Low dose of Celexa will likely be needing to increase Bowel movement September 13 and will initiate that regimen once again No pain is reported Baclofen helping Participating in all therapies Disability forms discussed with Amber the social media analyst Conferred with RN. Reviewed therapy notes. Review of Systems Neurological: Weakness, Numbness, Incoordination, Change in speech Objective Exam Vital Signs Vital Signs Date Time Temp Pulse Resp B/P (MAP) Pulse Ox O2 Delivery O2 Flow Rate FiO2 09/15/18 17:22 97.2 63 16 150/86 (107) 98 Room Air Capillary Refill : General Appearance: No Apparent Distress, WD/WN, Chronically ill HEENT: PERRL/EOMI, Normal ENT Inspection, Pharynx Normal, Moist Mucous Membranes Neck: Full Range of Motion, Normal Inspection, Non Tender, Supple Respiratory: Chest Non Tender, Lungs Clear, Normal Breath Sounds, No Accessory Muscle Use, No Respiratory Distress Cardiovascular: Regular Rate, Rhythm, No Edema, No Gallop, No JVD, No Murmur Gastrointestinal: Normal Bowel Sounds, No Organomegaly, No Pulsatile Mass, Non Tender, Soft Back: Normal Inspection, No CVA Tenderness, No Vertebral Tenderness Extremity: Normal Capillary Refill, Normal Inspection, Normal Range of Motion, Non Tender, No Calf Tenderness, No Pedal Edema Neurologic/Psychiatric: Alert, Oriented x3, Abnormal Cerebellar Tests, Abnormal Gait, Depressed Affect, Motor Weakness (right sided 1/5 arm and leg), Other (dysarthria, word searching) Skin: Normal Color, Warm/Dry Lymphatic: No Adenopathy Results/Procedures Lab Patient resulted labs reviewed. FIM Transfers Therapy Code Descriptions/Definitions Functional [place] Measure: 0=Not Assessed/NA 4=Minimal Assistance 1=Total Assistance 5=Supervision or Setup 2=Maximal Assistance 6=Modified [place] 3=Moderate Assistance 7=Complete [place] Therapy Quality Codes: 6 Independent with activity with or without an assistive device 5 Patient requires set up or clean up by helper. Patient completes activity by themselves 4 Supervision or touching assist (CGA). [place] provide cues , steadying assist 3 The helper provides less than half the effort to complete the activity 2 The helper provides more than half the effort to complete the activity 1 Dependent. The helper does all the effort to complete an activity 7 Patient refused to complete or attempt activity 9 The patient did not perform the activity before the current illness or injury 88 Not attempted due to Medical conditions or safety concerns Mental Status/Objective Comprehension: 7 Expression: 7 Social Interaction: 7 Problem Solvin Memory: 7 ADL-Treatment Feedin (set up by report) Eating (QC): 5 Groomin Oral Hygiene (QC): 6 Bathin Shower/Bathe Self (QC): 3 Upper Extremity Dressin Upper Body Dressing (QC): 2 Lower Extremity Dressin Lower Body Dressing (QC): 2 On/Off Footwear (QC): 2 (Assist to don/doff socks and shoes.) Toilet/Commode Transfer: 3 Toilet Transfer (QC): 3 Shower: 3 Assessment/Plan Assessment and Plan Assess & Plan/Chief Complaint Assessment: CVA w/right sided weakness Dysarthria Incontinence urinary Constipation-resolved 09/11/18 Smoker HLP Plan: IRF protocols BM regimen Smoking cessation Fall risk prevention Monitor BP Urinary continence training Baclofen for spastic muscles Psych consult reviewed and will increase dose of Celexa to 20mg Disability papers per SW (1) CVA (cerebral vascular accident) (2) Constipation (3) Dysarthria (4) Depression (5) Grief reaction (6) Hyperlipidemia (7) Incontinence of urine (8) Right sided weakness (9) Smoker (10) Spasticity as late effect of cerebrovascular accident (CVA) (11) Risk for falls (12) Taste impairment MILLY KIGN DO September 15, 2018 08:40
[2018-09-15] MEDS: DOCUSATE SODIUM 100 MG (COLACE) CAP PO SCH ×2 (09:00→20:17)
[2018-09-15] MEDS: POLYETHYLENE GLYCOL 17 GM (MIRALAX) PACK PO SCH ×2 (09:00→20:18)
[2018-09-15 09:22] VITALS: BP 138/80
[2018-09-15] MEDS: BACLOFEN 10 MG (LIORESAL) TAB PO PRN ×2 (09:23→20:22)
[2018-09-15] MEDS: SENNA W/DOCUSATE (SENOKOT S) TABLET PO SCH ×2 (09:23→20:18)
[2018-09-15] MEDS: CLOPIDOGREL 75 MG (PLAVIX) TABLET PO SCH (09:23)
[2018-09-15] MEDS: lisINopril 20 MG (PRINIVIL) TABLET PO SCH (09:23)
--- NOTE | 2018-09-15 10:16 | Physical Therapy Daily Note ---
PT Daily Note-Current Subjective Pt. agrees to Rx . States she is sleeping well, eating well and bowels are moving. Pain Location: No Pain Reported Mental Status Patient Orientation: Normal For Age Attachments: Other-See Comments (AFO RLE) Transfers Therapy Code Descriptions/Definitions Functional [place] Measure: 0=Not Assessed/NA 4=Minimal Assistance 1=Total Assistance 5=Supervision or Setup 2=Maximal Assistance 6=Modified [place] 3=Moderate Assistance 7=Complete [place] Therapy Quality Codes: 6 Independent with activity with or without an assistive device 5 Patient requires set up or clean up by helper. Patient completes activity by themselves 4 Supervision or touching assist (CGA). [place] provide cues , steadying assist 3 The helper provides less than half the effort to complete the activity 2 The helper provides more than half the effort to complete the activity 1 Dependent. The helper does all the effort to complete an activity 7 Patient refused to complete or attempt activity 9 The patient did not perform the activity before the current illness or injury 88 Not attempted due to Medical conditions or safety concerns Transfers (B, C, W/C) (FIM): 3 Scootin Rollin Supine to/from Sit: 5 Sit to/from Stand: 3 Bed to/from Chair: 3 Weight Bearing Right Lower Extremity: Right Weight Bearing/Tolerated Gait Training 2-3 steps to side this AM with mod assist. will concentrate PM RX on gait skills Exercises Supine Ex: Bridging (staggered ), Ankle pumps (HC stretch R), Quad Set (active noted on R), Rolling, Glut sets, Heel Slides (assist R), Short Arc Quads ( assist R), Scooting, Straight leg raise (max asssit R), Hip abd/add (assist R) Supine Reps: 12 Seated Therapy Exercises: Long arc quads (assisted on R) Seated Reps: 12 NuStep Minutes: 10 NuStep Workload: 1 Treatments leg presses on nustep, emphasis on RLE control for hip int ext rot Assessment Current Status: Good Progress PT Short Term Goals Short Term Goals Time Frame: September 17, 2018 Gait (FIM): 1 Gait Distance Comment: 20' Gait Level of Assist: 3 Gait Assistive Device: Walker Lior Wheelchair Distance: 150' PT Senior Care Goals Wood Turning Lathe Operator Goals PT Wood Turning Lathe Operator Goals Time Frame: October 01, 2018 Transfers (B,C,W/C) (FIM): 4 Sit to Lying (QC): 4 Lying-Sitting on Side/Bed(QC): 4 Sit to Stand (QC): 4 Rollin Roll Left to Right (QC): 4 Chair/Yoy-ik-Lwrfg Xfer(QC): 4 Car Transfer (QC): 4 Gait (FIM): 1 Distance: 40' Walk 10 feet (QC): 3 Walk 10ft-Uneven Surface(QC): 3 Gait Level of Assist: 4 Gait Assistive Device: Walker Lior Stairs (FIM): 1 # of Steps: 1 1 Step (curb) (QC): 3 Stairs Level Of Assist: 4 PT Plan Treatment/Plan Treatment Plan: Continue Plan of Care Treatment Plan: Bed Mobility, Concurrent Therapy, Education, Functional Activity Linda, Functional Strength, Group Therapy, Gait, Safety, Therapeutic Exercise, Transfers Treatment Duration: October 01, 2018 Frequency: At least 5 of 7 days/Wk (IRF) Estimated Hrs Per Day: 1.5 hours per day Patient and/or Family Agrees t: Yes Safety Risks/Education Patient Education: Transfer Techniques, Correct Positioning, W/C Management, Disease Process, Safety Issues Teaching Recipient: Patient Teaching Methods: Demonstration, Discussion Response to Teaching: Verbalize Understanding, Return Demonstration, Reinforcement Needed Time/GCodes Time In: 930 Time Out: 1015 Total Billed Treatment Time: 45 Total Billed Treatment 1,FA25,EX20 G Codes Necessary: GEOVANNY Pappas MANAGER CONSUMER INSIGHTS September 15, 2018 10:16
--- NOTE | 2018-09-15 11:30 | Occupational Ther Daily Note ---
OT Current Status-Daily Note Subjective Pt in bed, agrees to therapy. Pt has no c/o pain. Mental Status/Objective Therapy Code Descriptions/Definitions Functional [place] Measure: 0=Not Assessed/NA 4=Minimal Assistance 1=Total Assistance 5=Supervision or Setup 2=Maximal Assistance 6=Modified [place] 3=Moderate Assistance 7=Complete [place] ADL-Treatment Pt supine to sit with minimal assistance. Transfer to w/c with moderate assistance and skilled cues for safety. Pt declined bathing or dressing, but would like to complete grooming tasks. W/c mobility to therapy gym with increased time. Grooming completed seated at sink. Pt brushed teeth without assistance. Combed hair with SBA. Pt required assist to put hair up into ponytail. Pt doffed slipper socks with SBA. Donned left sock with SBA. Pt able to start right sock over toes, but required assist to pick pulling machine tender heel. Pt donned left shoe with SBA, but required assist to tie. Donned right shoe and AFO with max assist. Increased time for ADL tasks. Therapy Code Descriptions/Definitions Functional [place] Measure: 0=Not Assessed/NA 4=Minimal Assistance 1=Total Assistance 5=Supervision or Setup 2=Maximal Assistance 6=Modified [place] 3=Moderate Assistance 7=Complete [place] Therapy Quality Codes: 6 Independent with activity with or without an assistive device 5 Patient requires set up or clean up by helper. Patient completes activity by themselves 4 Supervision or touching assist (CGA). [place] provide cues , steadying assist 3 The helper provides less than half the effort to complete the activity 2 The helper provides more than half the effort to complete the activity 1 Dependent. The helper does all the effort to complete an activity 7 Patient refused to complete or attempt activity 9 The patient did not perform the activity before the current illness or injury 88 Not attempted due to Medical conditions or safety concerns Grooming (FIM): 4 On/Off Footwear (QC): 2 Other Treatment Pt performed w/c mobility to therapy gym with SBA and increased time. Transfer w /c <-> edge of mat with mod assist. Pt sat edge of mat with SBA for balance. Pt completed weight bearing activity through right UE to facilitate increased proprioceptive input. PROM completed right UE at all joints. Pt has no reports of pain during activity. Pt returned to room, transferred to chair with mod assist. Pt sitting in chair with needs met after session. OT Short Term Goals Short Term Goals Time Frame: September 17, 2018 Bathing(FIM): 4 Upper Body Dressing(FIM): 3 Lower Body Dressing(FIM): 3 Toileting(FIM): 3 Toilet/Commode Transfer(FIM): 4 Additional Short Term Goals: 2-Verbalize Understanding, 3-ImproveStrength/Linda 1=Demonstrate adherence to instructed precautions during ADL tasks. 2=Patient will verbalize/demonstrate understanding of assistive devices/ modifications for ADL. 3=Patient will improve strength/tolerance for activity to enable patient to perform ADL's. OT Rail Car Painter/Sandblaster Goals Senior Care Goals Time Frame: October 01, 2018 Eating (FIM): 6 Eating (QC): 6 Groomin Oral Hygiene (QC): 6 Bathing(FIM): 5 Shower/Bathe Self (QC): 4 Upper Body Dressing(FIM): 5 Upper Body Dressing (QC): 5 Lower Body Dressing(FIM): 4 Lower Body Dressing (QC): 4 On/Off Footwear (QC): 4 Toileting(FIM): 5 Toileting Hygiene (QC): 4 Toilet/Commode Transfer(FIM): 5 Toilet/Commode Transfer (QC): 5 Shower Transfer(FIM): 5 Additional Goals: 2-Verbalize Understanding, 3-ImproveStrength/Linda 1=Demonstrate adherence to instructed precautions during ADL tasks. 2=Patient will verbalize/demonstrate understanding of assistive devices/ modifications for ADL. 3=Patient will improve strength/tolerance for activity to enable patient to perform ADL's. OT Education/Plan Discharge Recommendations Plan/Recommendations: Continue POC Treatment Plan/Plan of Care Patient would benefit from OT for education, treatment and training to promote independence in ADL's, mobility, safety and/or upper extremity function for ADL' s. Plan of Care: ADL Retraining, Functional Mobility, Group Exercise/Act as Ind, UE Funct Exercise/Act, UE Neuromus Re-Ed/Coord Treatment Duration: October 01, 2018 Frequency: At least 5 of 7 days/Wk (IRF) Estimated Hrs Per Day: 1.5 hours per day Rehab Potential: Fair Time/GCodes Start Time: 08:00 Stop Time: 09:00 Total Time Billed (hr/min): 60 Billed Treatment Time 1 visit, ADLx2(35minutes), NMx2(25minutes) EVENS MARKS OT September 15, 2018 11:30
--- NOTE | 2018-09-15 14:41 | Occupational Ther Daily Note ---
OT Current Status-Daily Note Subjective Pt agreeable to treatment. No c/o pain. Mental Status/Objective Therapy Code Descriptions/Definitions Functional [place] Measure: 0=Not Assessed/NA 4=Minimal Assistance 1=Total Assistance 5=Supervision or Setup 2=Maximal Assistance 6=Modified [place] 3=Moderate Assistance 7=Complete [place] ADL-Treatment Therapy Code Descriptions/Definitions Functional [place] Measure: 0=Not Assessed/NA 4=Minimal Assistance 1=Total Assistance 5=Supervision or Setup 2=Maximal Assistance 6=Modified [place] 3=Moderate Assistance 7=Complete [place] Therapy Quality Codes: 6 Independent with activity with or without an assistive device 5 Patient requires set up or clean up by helper. Patient completes activity by themselves 4 Supervision or touching assist (CGA). [place] provide cues , steadying assist 3 The helper provides less than half the effort to complete the activity 2 The helper provides more than half the effort to complete the activity 1 Dependent. The helper does all the effort to complete an activity 7 Patient refused to complete or attempt activity 9 The patient did not perform the activity before the current illness or injury 88 Not attempted due to Medical conditions or safety concerns Other Treatment Pt transferred chair to w/c with moderate assistance. W/c mobility to therapy gym with increased time and cues. Reviewed safe transfer techniques including proper foot and hand placement. Pt performed 5 transfers w/c <-> edge of mat going to strong and weak side. Pt was able to transfer with minimal to moderate assistance with skilled cues. Rest breaks between trials. Pt completed left UE exercises to increase strength needed for ADLs and transfers. Pt performed shoulder flexion, abduction, and biceps curls x15 reps with 3# weights. Pt returned to room, sitting in chair with needs met after session. Education OT Patient Education: Transfer techniques Teaching Recipient: Patient Teaching Methods: Demonstration, Discussion Response to Teaching: Return Demonstration OT Short Term Goals Short Term Goals Time Frame: September 17, 2018 Bathing(FIM): 4 Upper Body Dressing(FIM): 3 Lower Body Dressing(FIM): 3 Toileting(FIM): 3 Toilet/Commode Transfer(FIM): 4 Additional Short Term Goals: 2-Verbalize Understanding, 3-ImproveStrength/Linda 1=Demonstrate adherence to instructed precautions during ADL tasks. 2=Patient will verbalize/demonstrate understanding of assistive devices/ modifications for ADL. 3=Patient will improve strength/tolerance for activity to enable patient to perform ADL's. OT Hydrotel Operator Goals Senior Living Goals Time Frame: October 01, 2018 Eating (FIM): 6 Eating (QC): 6 Groomin Oral Hygiene (QC): 6 Bathing(FIM): 5 Shower/Bathe Self (QC): 4 Upper Body Dressing(FIM): 5 Upper Body Dressing (QC): 5 Lower Body Dressing(FIM): 4 Lower Body Dressing (QC): 4 On/Off Footwear (QC): 4 Toileting(FIM): 5 Toileting Hygiene (QC): 4 Toilet/Commode Transfer(FIM): 5 Toilet/Commode Transfer (QC): 5 Shower Transfer(FIM): 5 Additional Goals: 2-Verbalize Understanding, 3-ImproveStrength/Linda 1=Demonstrate adherence to instructed precautions during ADL tasks. 2=Patient will verbalize/demonstrate understanding of assistive devices/ modifications for ADL. 3=Patient will improve strength/tolerance for activity to enable patient to perform ADL's. OT Education/Plan Discharge Recommendations Plan/Recommendations: Continue POC Treatment Plan/Plan of Care Patient would benefit from OT for education, treatment and training to promote independence in ADL's, mobility, safety and/or upper extremity function for ADL' s. Plan of Care: ADL Retraining, Functional Mobility, Group Exercise/Act as Ind, UE Funct Exercise/Act, UE Neuromus Re-Ed/Coord Treatment Duration: October 01, 2018 Frequency: At least 5 of 7 days/Wk (IRF) Estimated Hrs Per Day: 1.5 hours per day Rehab Potential: Fair Time/GCodes Start Time: 13:30 Stop Time: 14:00 Total Time Billed (hr/min): 30 Billed Treatment Time 1 visit, FA(20minutes), EX(10minutes) EVENS MARKS OT September 15, 2018 14:41
--- NOTE | 2018-09-15 15:02 | Physical Therapy Daily Note ---
PT Daily Note-Current Subjective Pt. agrees to Rx. Pain Location: No Pain Reported Mental Status Patient Orientation: Person, Place, Time, Situation Attachments: Other-See Comments (AFO and sling R U&L extremitites) Transfers Therapy Code Descriptions/Definitions Functional [place] Measure: 0=Not Assessed/NA 4=Minimal Assistance 1=Total Assistance 5=Supervision or Setup 2=Maximal Assistance 6=Modified [place] 3=Moderate Assistance 7=Complete [place] Therapy Quality Codes: 6 Independent with activity with or without an assistive device 5 Patient requires set up or clean up by helper. Patient completes activity by themselves 4 Supervision or touching assist (CGA). [place] provide cues , steadying assist 3 The helper provides less than half the effort to complete the activity 2 The helper provides more than half the effort to complete the activity 1 Dependent. The helper does all the effort to complete an activity 7 Patient refused to complete or attempt activity 9 The patient did not perform the activity before the current illness or injury 88 Not attempted due to Medical conditions or safety concerns Transfers (B, C, W/C) (FIM): 3 Scootin Rollin Supine to/from Sit: 4 Sit to/from Stand: 3 Bed to/from Chair: 3 Weight Bearing Right Lower Extremity: Right Weight Bearing/Tolerated Gait Training Does the Patient Walk?: Yes Gait (FIM): 1 Distance (FIM): 1=up to 49 ft (12ftx2) Gait Level of Assist: 2 Gait Persons Needed: 2 (w/c to follow ) Gait Assistive Device: Parallel Bars needs max assist to support and stabilize R knee during gait. Mirror used for feed back . pt. noted to be able to extend somewhat at knee during wt bearing but not during swing phase of left. may go back to use of knee immobl during gait Wheelchair Training Does the Pt Use a Wheelchair?: Yes Exercises Seated Therapy Exercises: Sit to stand, Long arc quads, Hip flexion Seated Reps: 10 Treatments pt. abruptly states during Rx that she quickly needs to get to get to toilet . TRFs to and from mod assist to max assist. pt. required mod assist for balance as she pulled pants up down 75% and this CRITICAL CARE NURSE assisting 25%. TRF to bed mod assist. pt. pulling RLE up in to bed min to CGA Assessment Current Status: Good Progress dependent for all mobility PT Short Term Goals Short Term Goals Time Frame: September 17, 2018 Gait (FIM): 1 Gait Distance Comment: 20' Gait Level of Assist: 3 Gait Assistive Device: Walker Lior Wheelchair Distance: 150' PT Retail Leader Goals Retail Leader Goals PT Group Home Goals Time Frame: October 01, 2018 Transfers (B,C,W/C) (FIM): 4 Sit to Lying (QC): 4 Lying-Sitting on Side/Bed(QC): 4 Sit to Stand (QC): 4 Rollin Roll Left to Right (QC): 4 Chair/Mrs-hs-Lolbe Xfer(QC): 4 Car Transfer (QC): 4 Gait (FIM): 1 Distance: 40' Walk 10 feet (QC): 3 Walk 10ft-Uneven Surface(QC): 3 Gait Level of Assist: 4 Gait Assistive Device: Walker Lior Stairs (FIM): 1 # of Steps: 1 1 Step (curb) (QC): 3 Stairs Level Of Assist: 4 PT Plan Treatment/Plan Treatment Plan: Continue Plan of Care Treatment Plan: Bed Mobility, Concurrent Therapy, Education, Functional Activity Linda, Functional Strength, Group Therapy, Gait, Safety, Therapeutic Exercise, Transfers Treatment Duration: October 01, 2018 Frequency: At least 5 of 7 days/Wk (IRF) Estimated Hrs Per Day: 1.5 hours per day Patient and/or Family Agrees t: Yes Safety Risks/Education Patient Education: Gait Training, Transfer Techniques, Correct Positioning, Disease Process, Safety Issues Teaching Recipient: Patient Teaching Methods: Demonstration, Discussion Response to Teaching: Verbalize Understanding, Return Demonstration, Reinforcement Needed Time/GCodes Time In: 1410 Time Out: 1455 Total Billed Treatment Time: 45 Total Billed Treatment 1,GT20m,FA25m G Codes Necessary: GEOVANNY Pappas CRITICAL CARE NURSE September 15, 2018 15:02
--- NOTE | 2018-09-15 17:00 | NUR ---
Report received from Brittny MOODY. Pt in bed at this time, looking at cell phone. No apparent distress. Pt voiced not needs.
[2018-09-15 17:22] VITALS: BP 150/86
[2018-09-15] MEDS: ATORVASTATIN 80 MG (LIPITOR) TABLET PO SCH (20:22)
[2018-09-16 05:18] VITALS: BP 147/84
[2018-09-16] MEDS: BACLOFEN 10 MG (LIORESAL) TAB PO PRN ×2 (08:56→21:00)
[2018-09-16] MEDS: CLOPIDOGREL 75 MG (PLAVIX) TABLET PO SCH (08:56)
[2018-09-16] MEDS: lisINopril 20 MG (PRINIVIL) TABLET PO SCH (08:56)
--- NOTE | 2018-09-16 08:58 | PM&R Progress Note ---
Subjective HPI/CC On Admission Date Seen by Provider: September 16, 2018 Time Seen by Provider: 08:45 CC: CVA w/right sided weakness HPI: This is a 57yoWF clinic patient of Dr Guajardo at his [facility] who presented to the [facility] ER w/abrupt onset right sided deficit with dysarthria. tPA was administered and patient was then transferred to [facility] for neurological services. 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 No dysphagia was noted during acute care stay but dysarthria remains with word searching processes. She is in good spirits on Celexa per protocol. Constipation is resolving at time of DC. No pain is reported. Patient worked at a [employer] prior to the CVA and is to a spouse who is disabled. Smoking cessation counseled. Patient was placed on statin therapy and Plavix was added to regimen with no side effects. 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 Subjective/Events-last exam Pt is working with PT very hard Very motivated Took a shower and increasing independence of her ADLs Celexa increased from 10 to 20 mg and I updated her on that Overall optimistic about recovery Bowels not moving so will restart the regimen Eating and drinking well Reviewed meds Conferred with RN. Reviewed therapy notes. Review of Systems General: Fatigue Neurological: Weakness, Numbness, Incoordination Objective Exam Vital Signs Vital Signs Date Time Temp Pulse Resp B/P (MAP) Pulse Ox O2 Delivery O2 Flow Rate FiO2 09/16/18 16:15 97.8 73 16 153/91 (111) 96 Room Air Capillary Refill : Less Than 3 Seconds General Appearance: No Apparent Distress, WD/WN, Chronically ill HEENT: PERRL/EOMI, Normal ENT Inspection, Pharynx Normal, Moist Mucous Membranes Neck: Full Range of Motion, Normal Inspection, Non Tender, Supple Respiratory: Chest Non Tender, Lungs Clear, Normal Breath Sounds, No Accessory Muscle Use, No Respiratory Distress Cardiovascular: Regular Rate, Rhythm, No Edema, No Gallop, No JVD, No Murmur Gastrointestinal: Normal Bowel Sounds, No Organomegaly, No Pulsatile Mass, Non Tender, Soft Back: Normal Inspection, No CVA Tenderness, No Vertebral Tenderness Extremity: Normal Capillary Refill, Normal Inspection, Normal Range of Motion, Non Tender, No Calf Tenderness, No Pedal Edema Neurologic/Psychiatric: Alert, Oriented x3, Abnormal Cerebellar Tests, Abnormal Gait, Depressed Affect, Motor Weakness (right sided 1/5 arm and leg), Other (dysarthria, word searching) Skin: Normal Color, Warm/Dry Lymphatic: No Adenopathy Results/Procedures Lab Patient resulted labs reviewed. FIM Transfers Therapy Code Descriptions/Definitions Functional [place] Measure: 0=Not Assessed/NA 4=Minimal Assistance 1=Total Assistance 5=Supervision or Setup 2=Maximal Assistance 6=Modified [place] 3=Moderate Assistance 7=Complete [place] Therapy Quality Codes: 6 Independent with activity with or without an assistive device 5 Patient requires set up or clean up by helper. Patient completes activity by themselves 4 Supervision or touching assist (CGA). [place] provide cues , steadying assist 3 The helper provides less than half the effort to complete the activity 2 The helper provides more than half the effort to complete the activity 1 Dependent. The helper does all the effort to complete an activity 7 Patient refused to complete or attempt activity 9 The patient did not perform the activity before the current illness or injury 88 Not attempted due to Medical conditions or safety concerns Mental Status/Objective Comprehension: 7 Expression: 7 Social Interaction: 7 Problem Solvin Memory: 7 ADL-Treatment Feedin (set up by report) Eating (QC): 5 Groomin Oral Hygiene (QC): 6 Bathin Shower/Bathe Self (QC): 3 Upper Extremity Dressin Upper Body Dressing (QC): 2 Lower Extremity Dressin Lower Body Dressing (QC): 2 On/Off Footwear (QC): 2 Toilet/Commode Transfer: 3 Toilet Transfer (QC): 3 Shower: 3 Assessment/Plan Assessment and Plan Assess & Plan/Chief Complaint Assessment: CVA w/right sided weakness Dysarthria Incontinence urinary Constipation-resolved 09/11/18 Smoker HLP Plan: IRF protocols BM regimen Smoking cessation Fall risk prevention Monitor BP Urinary continence training Baclofen for spastic muscles Psych consult reviewed and will increase dose of Celexa to 20mg Disability papers per SW Increase Celexa to 20mg daily (1) CVA (cerebral vascular accident) (2) Constipation (3) Dysarthria (4) Depression (5) Grief reaction (6) Hyperlipidemia (7) Incontinence of urine (8) Right sided weakness (9) Smoker (10) Spasticity as late effect of cerebrovascular accident (CVA) (11) Risk for falls (12) Taste impairment MILLY KING DO September 16, 2018 08:58
[2018-09-16] MEDS: POLYETHYLENE GLYCOL 17 GM (MIRALAX) PACK PO SCH ×2 (09:00→20:57)
[2018-09-16] MEDS: SENNA W/DOCUSATE (SENOKOT S) TABLET PO SCH ×2 (09:00→20:57)
[2018-09-16] MEDS: DOCUSATE SODIUM 100 MG (COLACE) CAP PO SCH ×2 (09:00→20:56)
--- NOTE | 2018-09-16 09:14 | Occupational Ther Daily Note ---
OT Current Status-Daily Note Subjective Pt alert, sitting up in bed. Pt agrees to therapy. No c/o pain at this time. Discussed with pt the small steps of progress that she is demonstrating progress with functional tasks and static standing balance. Mental Status/Objective Patient Orientation: Person, Place, Time, Situation Therapy Code Descriptions/Definitions Functional [place] Measure: 0=Not Assessed/NA 4=Minimal Assistance 1=Total Assistance 5=Supervision or Setup 2=Maximal Assistance 6=Modified [place] 3=Moderate Assistance 7=Complete [place] ADL-Treatment Pt agrees to shower. Pt demonstrating increased balance with hiking pants over hips, CGA. Assisted with dressing due to end of session. After therapy, PT took over care. All needs met. Therapy Code Descriptions/Definitions Functional [place] Measure: 0=Not Assessed/NA 4=Minimal Assistance 1=Total Assistance 5=Supervision or Setup 2=Maximal Assistance 6=Modified [place] 3=Moderate Assistance 7=Complete [place] Therapy Quality Codes: 6 Independent with activity with or without an assistive device 5 Patient requires set up or clean up by helper. Patient completes activity by themselves 4 Supervision or touching assist (CGA). [place] provide cues , steadying assist 3 The helper provides less than half the effort to complete the activity 2 The helper provides more than half the effort to complete the activity 1 Dependent. The helper does all the effort to complete an activity 7 Patient refused to complete or attempt activity 9 The patient did not perform the activity before the current illness or injury 88 Not attempted due to Medical conditions or safety concerns Grooming (FIM): 6 (Sitting at sink, pt completes by self. Pt left hair down, brushed by self.) Oral Hygiene (QC): 6 Bathing (FIM): 4 (Assist only to wash L UE. Using shower bench, grabbar and hand held shower pt able to complete with SBA for safety.) Bathing Location: R Arm, L Upper Leg, R Upper Leg, L Lower Leg (including foot) , R Lower Leg (including foot), Chest, Abdomen, Buttocks (shifted side to side to cleanse), Perineal Area Shower/Bathe Self (QC): 3 OT Short Term Goals Short Term Goals Time Frame: September 17, 2018 Bathing(FIM): 4 Upper Body Dressing(FIM): 3 Lower Body Dressing(FIM): 3 Toileting(FIM): 3 Toilet/Commode Transfer(FIM): 4 Additional Short Term Goals: 2-Verbalize Understanding, 3-ImproveStrength/Linda 1=Demonstrate adherence to instructed precautions during ADL tasks. 2=Patient will verbalize/demonstrate understanding of assistive devices/ modifications for ADL. 3=Patient will improve strength/tolerance for activity to enable patient to perform ADL's. OT Casket Upholsterer Goals Longterm Goals Time Frame: October 01, 2018 Eating (FIM): 6 Eating (QC): 6 Groomin Oral Hygiene (QC): 6 Bathing(FIM): 5 Shower/Bathe Self (QC): 4 Upper Body Dressing(FIM): 5 Upper Body Dressing (QC): 5 Lower Body Dressing(FIM): 4 Lower Body Dressing (QC): 4 On/Off Footwear (QC): 4 Toileting(FIM): 5 Toileting Hygiene (QC): 4 Toilet/Commode Transfer(FIM): 5 Toilet/Commode Transfer (QC): 5 Shower Transfer(FIM): 5 Additional Goals: 2-Verbalize Understanding, 3-ImproveStrength/Linda 1=Demonstrate adherence to instructed precautions during ADL tasks. 2=Patient will verbalize/demonstrate understanding of assistive devices/ modifications for ADL. 3=Patient will improve strength/tolerance for activity to enable patient to perform ADL's. OT Education/Plan Problem List/Assessment Assessment: Decreased UE Strength, Impaired Coordination, Impaired Funct Balance, Impaired Self-Care Skills, Restricted Funct UE ROM Discharge Recommendations Plan/Recommendations: Continue POC Treatment Plan/Plan of Care Patient would benefit from OT for education, treatment and training to promote independence in ADL's, mobility, safety and/or upper extremity function for ADL' s. Plan of Care: ADL Retraining, Functional Mobility, Group Exercise/Act as Ind, UE Funct Exercise/Act, UE Neuromus Re-Ed/Coord Treatment Duration: October 01, 2018 Frequency: At least 5 of 7 days/Wk (IRF) Estimated Hrs Per Day: 1.5 hours per day Rehab Potential: Fair Time/GCodes Start Time: 08:00 Stop Time: 09:00 Total Time Billed (hr/min): 60 Billed Treatment Time 1 visit-ADL 4 (60 min) TJ PURDY September 16, 2018 09:14
--- NOTE | 2018-09-16 10:00 | Physical Therapy Daily Note ---
PT Daily Note-Current Subjective Patient in wheelchair pre tx, agrees to PT, no complaints of pain at rest. Appearance Patient in recliner post tx with nurse call, phone, tray, all needs met. Mental Status Patient Orientation: Person, Place, Situation Transfers Therapy Code Descriptions/Definitions Functional [place] Measure: 0=Not Assessed/NA 4=Minimal Assistance 1=Total Assistance 5=Supervision or Setup 2=Maximal Assistance 6=Modified [place] 3=Moderate Assistance 7=Complete [place] Therapy Quality Codes: 6 Independent with activity with or without an assistive device 5 Patient requires set up or clean up by helper. Patient completes activity by themselves 4 Supervision or touching assist (CGA). [place] provide cues , steadying assist 3 The helper provides less than half the effort to complete the activity 2 The helper provides more than half the effort to complete the activity 1 Dependent. The helper does all the effort to complete an activity 7 Patient refused to complete or attempt activity 9 The patient did not perform the activity before the current illness or injury 88 Not attempted due to Medical conditions or safety concerns Transfers (B, C, W/C) (FIM): 4 Sit to/from Stand: 4 Bed to/from Chair: 4 Patient can perform sit to stand with CGA with proper positioning and cues for safety and can perform a transfer with CGA to the left and min assist to the right. Weight Bearing Right Lower Extremity: Right Weight Bearing/Tolerated Gait Training Gait (FIM): 1 Distance: 20'x4 Gait Level of Assist: 4 Gait Persons Needed: 1 Gait Assistive Device: Walker Lior Patient can ambulate 20' with a hemiwalker with min assist and a right AFO. Patient needs assist with balance and slight assist with weight shifting to the left to step through with the right leg. She is able to advance her right leg without assist other than weight shifting. She was able to bear weight on her right leg and did not need a knee immobilizer. Wheelchair Training Does the Pt Use a Wheelchair?: Yes Wheelchair (FIM): 5 Distance: 150'x2 Wheelchair Level of Assist: 5 Type of Wheelchair: Manual Exercises sidestepping in parallel bars 6'x6, LAQ right side AAROM for 5 min, sit to stand x10, SLS on the right side x5 for about 15 seconds each time, toe taps on 6" step with right leg x5 Treatments transfers, ambulation, LE exercise Assessment Current Status: Fair Progress improved transfers and ambulation PT Short Term Goals Short Term Goals Time Frame: September 17, 2018 Gait (FIM): 1 Gait Distance Comment: 20' Gait Level of Assist: 3 Gait Assistive Device: Walker Lior Wheelchair Distance: 150' PT Care Home Goals Plastic Shaper Goals PT Care Home Goals Time Frame: October 01, 2018 Transfers (B,C,W/C) (FIM): 4 Sit to Lying (QC): 4 Lying-Sitting on Side/Bed(QC): 4 Sit to Stand (QC): 4 Rollin Roll Left to Right (QC): 4 Chair/[id number]-[id number] Xfer(QC): 4 Car Transfer (QC): 4 Gait (FIM): 1 Distance: 40' Walk 10 feet (QC): 3 Walk 10ft-Uneven Surface(QC): 3 Gait Level of Assist: 4 Gait Assistive Device: Walker Lior Stairs (FIM): 1 # of Steps: 1 1 Step (curb) (QC): 3 Stairs Level Of Assist: 4 PT Plan Problem List Problem List: Activity Tolerance, Functional Strength, Safety, Balance, Gait, Transfer, Bed Mobility, ROM Treatment/Plan Treatment Plan: Continue Plan of Care Treatment Plan: Bed Mobility, Concurrent Therapy, Education, Functional Activity Linda, Functional Strength, Group Therapy, Gait, Safety, Therapeutic Exercise, Transfers Treatment Duration: October 01, 2018 Frequency: At least 5 of 7 days/Wk (IRF) Estimated Hrs Per Day: 1.5 hours per day Patient and/or Family Agrees t: Yes Safety Risks/Education Patient Education: Gait Training, Transfer Techniques, Correct Positioning, W/ C Management, Safety Issues Teaching Recipient: Patient Teaching Methods: Demonstration, Discussion Response to Teaching: Reinforcement Needed Time/GCodes Time In: 0900 Time Out: 1000 Total Billed Treatment Time: 60 Total Billed Treatment 1 visit GT 25' EX 20' FA 15' ALINE SÁNCHEZ PT September 16, 2018 09:59
--- NOTE | 2018-09-16 11:03 | Physical Therapy Daily Note ---
PT Daily Note-Current Subjective Patient in recliner pre tx, agrees to PT, has no complaints of pain at rest. Appearance Patient sitting on therapy table in gym, OT taking over right after PT. Mental Status Patient Orientation: Person, Place, Situation Transfers Therapy Code Descriptions/Definitions Functional [place] Measure: 0=Not Assessed/NA 4=Minimal Assistance 1=Total Assistance 5=Supervision or Setup 2=Maximal Assistance 6=Modified [place] 3=Moderate Assistance 7=Complete [place] Therapy Quality Codes: 6 Independent with activity with or without an assistive device 5 Patient requires set up or clean up by helper. Patient completes activity by themselves 4 Supervision or touching assist (CGA). [place] provide cues , steadying assist 3 The helper provides less than half the effort to complete the activity 2 The helper provides more than half the effort to complete the activity 1 Dependent. The helper does all the effort to complete an activity 7 Patient refused to complete or attempt activity 9 The patient did not perform the activity before the current illness or injury 88 Not attempted due to Medical conditions or safety concerns Transfers (B, C, W/C) (FIM): 4 Sit to/from Stand: 4 Bed to/from Chair: 4 Patient instructed on proper positioning of feet when turning to sit to the left side. Weight Bearing Right Lower Extremity: Right Weight Bearing/Tolerated Gait Training Gait (FIM): 2 Distance: 120', 20' Gait Level of Assist: 4 Gait Persons Needed: 1 Gait Assistive Device: Walker Lior Patient was able to ambulate 120' with a hemiwalker with min assist for balance and slight weight shifting and using a right AFO. Exercises NuStep Minutes: 15 NuStep Workload: 4 Treatments transfers, ambulation, functional strengthening Assessment Current Status: Fair Progress improving endurance and RLE strength PT Short Term Goals Short Term Goals Time Frame: September 17, 2018 Gait (FIM): 1 Gait Distance Comment: 20' Gait Level of Assist: 3 Gait Assistive Device: Walker Lior Wheelchair Distance: 150'x2 PT Jail Goals Jail Goals PT Jail Goals Time Frame: October 01, 2018 Transfers (B,C,W/C) (FIM): 4 Sit to Lying (QC): 4 Lying-Sitting on Side/Bed(QC): 4 Sit to Stand (QC): 4 Rollin Roll Left to Right (QC): 4 Chair/Jjs-tl-Mvjjx Xfer(QC): 4 Car Transfer (QC): 4 Gait (FIM): 1 Distance: 40' Walk 10 feet (QC): 3 Walk 10ft-Uneven Surface(QC): 3 Gait Level of Assist: 4 Gait Assistive Device: Walker Lior Stairs (FIM): 1 # of Steps: 1 1 Step (curb) (QC): 3 Stairs Level Of Assist: 4 PT Plan Problem List Problem List: Activity Tolerance, Functional Strength, Safety, Balance, Gait, Transfer, Bed Mobility, ROM Treatment/Plan Treatment Plan: Continue Plan of Care Treatment Plan: Bed Mobility, Concurrent Therapy, Education, Functional Activity Linda, Functional Strength, Group Therapy, Gait, Safety, Therapeutic Exercise, Transfers Treatment Duration: October 01, 2018 Frequency: At least 5 of 7 days/Wk (IRF) Estimated Hrs Per Day: 1.5 hours per day Patient and/or Family Agrees t: Yes Safety Risks/Education Patient Education: Gait Training, Transfer Techniques, Correct Positioning, Safety Issues Teaching Recipient: Patient Teaching Methods: Demonstration, Discussion Response to Teaching: Reinforcement Needed Time/GCodes Time In: 1030 Time Out: 1100 Total Billed Treatment Time: 30 Total Billed Treatment 1 visit EX 15' GT 15' ALINE SÁNCHEZ PT September 16, 2018 11:03
--- NOTE | 2018-09-16 13:53 | Occupational Ther Daily Note ---
OT Current Status-Daily Note Subjective Took over care from PT. Pt agrees to therapy. No c/o pain. Mental Status/Objective Patient Orientation: Person, Place, Time, Situation Therapy Code Descriptions/Definitions Functional [place] Measure: 0=Not Assessed/NA 4=Minimal Assistance 1=Total Assistance 5=Supervision or Setup 2=Maximal Assistance 6=Modified [place] 3=Moderate Assistance 7=Complete [place] ADL-Treatment Therapy Code Descriptions/Definitions Functional [place] Measure: 0=Not Assessed/NA 4=Minimal Assistance 1=Total Assistance 5=Supervision or Setup 2=Maximal Assistance 6=Modified [place] 3=Moderate Assistance 7=Complete [place] Therapy Quality Codes: 6 Independent with activity with or without an assistive device 5 Patient requires set up or clean up by helper. Patient completes activity by themselves 4 Supervision or touching assist (CGA). [place] provide cues , steadying assist 3 The helper provides less than half the effort to complete the activity 2 The helper provides more than half the effort to complete the activity 1 Dependent. The helper does all the effort to complete an activity 7 Patient refused to complete or attempt activity 9 The patient did not perform the activity before the current illness or injury 88 Not attempted due to Medical conditions or safety concerns Other Treatment Using e-stim on R UE to promote AROM for daily functional tasks. E-stim: contraction 20 sec relaxation 9 sec at 4-5 mederos for bicep/tricep movement. Pt unable to extend arm without facilitation, more active movement noted in bicep flexion. Pt has increased flexion of L hand, will extend with gently PROM. Rigid taping to R shldr for subluxation, pt has approx 1" subluxation. After therapy, pt sitting in recliner with call light/phone in reach. All needs met in room. OT Short Term Goals Short Term Goals Time Frame: September 17, 2018 Bathing(FIM): 4 Upper Body Dressing(FIM): 3 Lower Body Dressing(FIM): 3 Toileting(FIM): 3 Toilet/Commode Transfer(FIM): 4 Additional Short Term Goals: 2-Verbalize Understanding, 3-ImproveStrength/Linda 1=Demonstrate adherence to instructed precautions during ADL tasks. 2=Patient will verbalize/demonstrate understanding of assistive devices/ modifications for ADL. 3=Patient will improve strength/tolerance for activity to enable patient to perform ADL's. OT Half-Way Goals Half-Way Goals Time Frame: October 01, 2018 Eating (FIM): 6 Eating (QC): 6 Groomin Oral Hygiene (QC): 6 Bathing(FIM): 5 Shower/Bathe Self (QC): 4 Upper Body Dressing(FIM): 5 Upper Body Dressing (QC): 5 Lower Body Dressing(FIM): 4 Lower Body Dressing (QC): 4 On/Off Footwear (QC): 4 Toileting(FIM): 5 Toileting Hygiene (QC): 4 Toilet/Commode Transfer(FIM): 5 Toilet/Commode Transfer (QC): 5 Shower Transfer(FIM): 5 Additional Goals: 2-Verbalize Understanding, 3-ImproveStrength/Linda 1=Demonstrate adherence to instructed precautions during ADL tasks. 2=Patient will verbalize/demonstrate understanding of assistive devices/ modifications for ADL. 3=Patient will improve strength/tolerance for activity to enable patient to perform ADL's. OT Education/Plan Problem List/Assessment Assessment: Impaired Funct Balance, Impaired Self-Care Skills, Restricted Funct UE ROM Discharge Recommendations Plan/Recommendations: Continue POC Treatment Plan/Plan of Care Patient would benefit from OT for education, treatment and training to promote independence in ADL's, mobility, safety and/or upper extremity function for ADL' s. Plan of Care: ADL Retraining, Functional Mobility, Group Exercise/Act as Ind, UE Funct Exercise/Act, UE Neuromus Re-Ed/Coord Treatment Duration: October 01, 2018 Frequency: At least 5 of 7 days/Wk (IRF) Estimated Hrs Per Day: 1.5 hours per day Rehab Potential: Fair Time/GCodes Start Time: 11:00 Stop Time: 11:30 Total Time Billed (hr/min): 30 Billed Treatment Time 1 visit-NM 2 (30 min) TJ PURDY September 16, 2018 13:53
[2018-09-16 16:15] VITALS: BP 153/91
[2018-09-16] MEDS: ATORVASTATIN 80 MG (LIPITOR) TABLET PO SCH (20:56)
[2018-09-17 06:00] LABS: BASOPHILS # (AUTO) 0.1 10^3/uL (0.0-0.1); BASOPHILS % (AUTO) 1 % (0-10); EOSINOPHILS # (AUTO) 0.2 10^3/uL (0.0-0.3); EOSINOPHILS % (AUTO) 3 % (0-10); HEMATOCRIT 37 % (35-52); HEMOGLOBIN 12.7 G/DL (11.5-16.0); LYMPHOCYTES # (AUTO) 1.9 X 10^3 (1.0-4.0); LYMPHOCYTES % (AUTO) 27 % (12-44); MEAN CORPUSCULAR HEMOGLOBIN 32 PG (25-34); MEAN CORPUSCULAR HGB CONC 35 G/DL (32-36); MEAN CORPUSCULAR VOLUME 91 FL (80-99); MEAN PLATELET VOLUME 9.8 FL (7.4-10.4); MONOCYTES # (AUTO) 0.6 X 10^3 (0.0-1.0); MONOCYTES % (AUTO) 9 % (0-12); NEUTROPHILS # (AUTO) 4.2 X 10^3 (1.8-7.8); NEUTROPHILS % (AUTO) 60 % (42-75); PLATELET COUNT 185 10^3/uL (130-400); RED CELL DISTRIBUTION WIDTH 12.1 % (10.0-14.5)
[2018-09-17 06:14] VITALS: BP 147/78
[2018-09-17 06:25] LABS: ALANINE AMINOTRANSFERASE 21 U/L (0-55); ALBUMIN 3.6 GM/DL (3.2-4.5); ALKALINE PHOSPHATASE 59 U/L (40-136); BILIRUBIN,TOTAL 0.6 MG/DL (0.1-1.0); BUN/CREATININE RATIO 18; CALCIUM 9.2 MG/DL (8.5-10.1); CARBON DIOXIDE 22 MMOL/L (21-32); CHLORIDE 109 MMOL/L (98-107); CREATININE SERUM 0.61 MG/DL (0.60-1.30); GFR ESTIMATED > 60; GLUCOSE 101 MG/DL (70-105); POTASSIUM 3.7 MMOL/L (3.6-5.0); SODIUM 139 MMOL/L (135-145); TOTAL PROTEIN 6.2 GM/DL (6.4-8.2)
--- NOTE | 2018-09-17 07:23 | Occupational Ther Daily Note ---
OT Current Status-Daily Note Subjective Pt alert, lying in bed. Pt agrees to therapy. No c/o pain at this time. Pt stated that today is a year after her daughter's memorial. Pt wanted to talk about her daughter and was teary. Pt appears to feel somewhat better after. Mental Status/Objective Patient Orientation: Person, Place, Time, Situation Therapy Code Descriptions/Definitions Functional [place] Measure: 0=Not Assessed/NA 4=Minimal Assistance 1=Total Assistance 5=Supervision or Setup 2=Maximal Assistance 6=Modified [place] 3=Moderate Assistance 7=Complete [place] ADL-Treatment Pt declined shower. Pt agrees to sponge bathe and change clothing. Pt completed grooming sitting at sink. Then requested to use toilet. Min A for transfer and to manipulate clothing. Pt able to cleanse after voiding then required assistance after BM. Therapy Code Descriptions/Definitions Functional [place] Measure: 0=Not Assessed/NA 4=Minimal Assistance 1=Total Assistance 5=Supervision or Setup 2=Maximal Assistance 6=Modified [place] 3=Moderate Assistance 7=Complete [place] Therapy Quality Codes: 6 Independent with activity with or without an assistive device 5 Patient requires set up or clean up by helper. Patient completes activity by themselves 4 Supervision or touching assist (CGA). [place] provide cues , steadying assist 3 The helper provides less than half the effort to complete the activity 2 The helper provides more than half the effort to complete the activity 1 Dependent. The helper does all the effort to complete an activity 7 Patient refused to complete or attempt activity 9 The patient did not perform the activity before the current illness or injury 88 Not attempted due to Medical conditions or safety concerns Eating (FIM): 6 Eating (QC): 6 Grooming (FIM): 6 Oral Hygiene (QC): 6 Upper Body (FIM): 4 (Education on one handed dressing techniques then verbal cues and min A to complete.) Upper Body Dressing (QC): 3 Lower Body Dressing (FIM): 3 (Assist to don/doff clothing over R foot then pt able to manipulate clothing with min A in standing. ) Lower Body Dressing (QC): 2 On/Off Footwear (QC): 2 Toileting (FIM): 3 (Assist to cleanse after BM. Assist in stand to manipulate clothing.) Toileting Hygiene (QC): 3 Transfers (B, C, W/C) (FIM): 4 (CGA for SPT.) Toilet/Commode Transfer (FIM): 4 (Min A using grabbars and w/c.) Toilet Transfer (QC): 3 Other Treatment E-stim on wrist and finger extension. Pt required 8 mederos to activate extensor muscles. Pt attempted to work with e-stim during contractions though no active movement in extension noted. After therapy, PT took over care of pt. All needs met. OT Short Term Goals Short Term Goals Time Frame: September 17, 2018 Bathing(FIM): 4 Upper Body Dressing(FIM): 3 Lower Body Dressing(FIM): 3 Toileting(FIM): 3 Toilet/Commode Transfer(FIM): 4 Additional Short Term Goals: 2-Verbalize Understanding, 3-ImproveStrength/Linda 1=Demonstrate adherence to instructed precautions during ADL tasks. 2=Patient will verbalize/demonstrate understanding of assistive devices/ modifications for ADL. 3=Patient will improve strength/tolerance for activity to enable patient to perform ADL's. OT Hospital Clinic Assistant Goals Hospital Clinic Assistant Goals Time Frame: October 01, 2018 Eating (FIM): 6 Eating (QC): 6 Groomin Oral Hygiene (QC): 6 Bathing(FIM): 5 Shower/Bathe Self (QC): 4 Upper Body Dressing(FIM): 5 Upper Body Dressing (QC): 5 Lower Body Dressing(FIM): 4 Lower Body Dressing (QC): 4 On/Off Footwear (QC): 4 Toileting(FIM): 5 Toileting Hygiene (QC): 4 Toilet/Commode Transfer(FIM): 5 Toilet/Commode Transfer (QC): 5 Shower Transfer(FIM): 5 Additional Goals: 2-Verbalize Understanding, 3-ImproveStrength/Linda 1=Demonstrate adherence to instructed precautions during ADL tasks. 2=Patient will verbalize/demonstrate understanding of assistive devices/ modifications for ADL. 3=Patient will improve strength/tolerance for activity to enable patient to perform ADL's. OT Education/Plan Problem List/Assessment Assessment: Decreased UE Strength, Impaired Coordination, Impaired Funct Balance, Impaired Self-Care Skills, Restricted Funct UE ROM Discharge Recommendations Plan/Recommendations: Continue POC Treatment Plan/Plan of Care Patient would benefit from OT for education, treatment and training to promote independence in ADL's, mobility, safety and/or upper extremity function for ADL' s. Plan of Care: ADL Retraining, Functional Mobility, Group Exercise/Act as Ind, UE Funct Exercise/Act, UE Neuromus Re-Ed/Coord Treatment Duration: October 01, 2018 Frequency: At least 5 of 7 days/Wk (IRF) Estimated Hrs Per Day: 1.5 hours per day Rehab Potential: Fair Time/GCodes Start Time: 07:30 Stop Time: 09:00 Total Time Billed (hr/min): 90 Billed Treatment Time 1 visit-ADL 4 (60 min) NM 2 (30 min) TJ PURDY September 17, 2018 07:23
[2018-09-17] MEDS: DOCUSATE SODIUM 100 MG (COLACE) CAP PO SCH ×2 (07:44→20:40)
[2018-09-17] MEDS: POLYETHYLENE GLYCOL 17 GM (MIRALAX) PACK PO SCH ×2 (07:44→20:33)
[2018-09-17] MEDS: SENNA W/DOCUSATE (SENOKOT S) TABLET PO SCH ×2 (07:45→20:40)
[2018-09-17] MEDS: lisINopril 20 MG (PRINIVIL) TABLET PO SCH (08:38)
[2018-09-17] MEDS: CLOPIDOGREL 75 MG (PLAVIX) TABLET PO SCH (08:38)
--- NOTE | 2018-09-17 09:10 | PM&R Progress Note ---
Subjective HPI/CC On Admission Date Seen by Provider: September 17, 2018 Time Seen by Provider: 08:30 CC: CVA w/right sided weakness HPI: This is a 57yoWF clinic patient of Dr Guajardo at his [place] [facility] who presented to the [facility] ER w/abrupt onset right sided deficit with dysarthria. tPA was administered and patient was then transferred to [facility] for neurological services. 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 No dysphagia was noted during acute care stay but dysarthria remains with word searching processes. She is in good spirits on Celexa per protocol. Constipation is resolving at time of DC. No pain is reported. Patient worked at a [employer] prior to the CVA and is to a spouse who is disabled. Smoking cessation counseled. Patient was placed on statin therapy and Plavix was added to regimen with no side effects. 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 Subjective/Events-last exam Pt is working with PT very hard and walking with cane very well Very motivated Took a shower and increasing independence of her ADLs and OT thinks she is doing very well Celexa increased from 10 to 20 mg and seems to be helping her already Overall optimistic about recovery Bowels moving now without meds given yesterday Eating and drinking well Reviewed meds Conferred with RN. Reviewed therapy notes. Review of Systems Neurological: Weakness, Numbness, Incoordination Objective Exam Vital Signs Vital Signs Date Time Temp Pulse Resp B/P (MAP) Pulse Ox O2 Delivery O2 Flow Rate FiO2 09/17/18 09:00 Room Air 09/17/18 06:14 97.7 65 16 147/78 (101) 95 Capillary Refill : Less Than 3 Seconds General Appearance: No Apparent Distress, WD/WN, Chronically ill HEENT: PERRL/EOMI, Normal ENT Inspection, Pharynx Normal, Moist Mucous Membranes Neck: Full Range of Motion, Normal Inspection, Non Tender, Supple Respiratory: Chest Non Tender, Lungs Clear, Normal Breath Sounds, No Accessory Muscle Use, No Respiratory Distress Cardiovascular: Regular Rate, Rhythm, No Edema, No Gallop, No JVD, No Murmur Gastrointestinal: Normal Bowel Sounds, No Organomegaly, No Pulsatile Mass, Non Tender, Soft Back: Normal Inspection, No CVA Tenderness, No Vertebral Tenderness Extremity: Normal Capillary Refill, Normal Inspection, Normal Range of Motion, Non Tender, No Calf Tenderness, No Pedal Edema Neurologic/Psychiatric: Alert, Oriented x3, Abnormal Cerebellar Tests, Abnormal Gait, Depressed Affect, Motor Weakness (right sided 1/5 arm and leg), Other (dysarthria, word searching) Skin: Normal Color, Warm/Dry Lymphatic: No Adenopathy Results/Procedures Lab Laboratory Tests 09/17/18 05:45 Patient resulted labs reviewed. FIM Transfers Therapy Code Descriptions/Definitions Functional [place] Measure: 0=Not Assessed/NA 4=Minimal Assistance 1=Total Assistance 5=Supervision or Setup 2=Maximal Assistance 6=Modified [place] 3=Moderate Assistance 7=Complete [place] Therapy Quality Codes: 6 Independent with activity with or without an assistive device 5 Patient requires set up or clean up by helper. Patient completes activity by themselves 4 Supervision or touching assist (CGA). [place] provide cues , steadying assist 3 The helper provides less than half the effort to complete the activity 2 The helper provides more than half the effort to complete the activity 1 Dependent. The helper does all the effort to complete an activity 7 Patient refused to complete or attempt activity 9 The patient did not perform the activity before the current illness or injury 88 Not attempted due to Medical conditions or safety concerns Mental Status/Objective Comprehension: 7 Expression: 7 Social Interaction: 7 Problem Solvin Memory: 7 ADL-Treatment Feedin (set up by report) Eating (QC): 5 Groomin (Sitting at sink, pt completes by self. Pt left hair down, brushed by self.) Oral Hygiene (QC): 6 Bathin (Assist only to wash L UE. Using shower bench, grabbar and hand held shower pt able to complete with SBA for safety.) Bathing Location: R Arm, L Upper Leg, R Upper Leg, L Lower Leg (including foot) , R Lower Leg (including foot), Chest, Abdomen, Buttocks (shifted side to side to cleanse), Perineal Area Shower/Bathe Self (QC): 3 Upper Extremity Dressin Upper Body Dressing (QC): 2 Lower Extremity Dressin Lower Body Dressing (QC): 2 On/Off Footwear (QC): 2 Toilet/Commode Transfer: 3 Toilet Transfer (QC): 3 Shower: 3 Assessment/Plan Assessment and Plan Assess & Plan/Chief Complaint Assessment: CVA w/right sided weakness Dysarthria Incontinence urinary Constipation-resolved 09/11/18 Smoker HLP Plan: IRF protocols BM regimen Smoking cessation Fall risk prevention Monitor BP Urinary continence training Baclofen for spastic muscles Psych consult reviewed and will increase dose of Celexa to 20mg Disability papers per SW Maintain increased Celexa to 20mg daily (1) CVA (cerebral vascular accident) (2) Constipation (3) Dysarthria (4) Depression (5) Grief reaction (6) Hyperlipidemia (7) Incontinence of urine (8) Right sided weakness (9) Smoker (10) Spasticity as late effect of cerebrovascular accident (CVA) (11) Risk for falls (12) Taste impairment MILLY KING DO September 17, 2018 09:10
--- NOTE | 2018-09-17 10:02 | Physical Therapy Daily Note ---
PT Daily Note-Current Subjective Patient in wheelchair in therapy gym pre tx, just got through with OT, has no complaints of pain, agrees to PT. Appearance Patient in recliner post tx with nurse call, phone, tray, all needs met. Mental Status Patient Orientation: Person, Place, Situation Transfers Therapy Code Descriptions/Definitions Functional [place] Measure: 0=Not Assessed/NA 4=Minimal Assistance 1=Total Assistance 5=Supervision or Setup 2=Maximal Assistance 6=Modified [place] 3=Moderate Assistance 7=Complete [place] Therapy Quality Codes: 6 Independent with activity with or without an assistive device 5 Patient requires set up or clean up by helper. Patient completes activity by themselves 4 Supervision or touching assist (CGA). [place] provide cues , steadying assist 3 The helper provides less than half the effort to complete the activity 2 The helper provides more than half the effort to complete the activity 1 Dependent. The helper does all the effort to complete an activity 7 Patient refused to complete or attempt activity 9 The patient did not perform the activity before the current illness or injury 88 Not attempted due to Medical conditions or safety concerns Transfers (B, C, W/C) (FIM): 4 Scootin Rollin Supine to/from Sit: 4 Sit to/from Stand: 4 Bed to/from Chair: 4 CGA for sit to stand, min assist for stand pivot transfers, cues for positioning and safety. Patient also practiced bed mobility and rolling to both sides. Weight Bearing Right Lower Extremity: Right Weight Bearing/Tolerated Gait Training Gait (FIM): 4 Distance: 200'x2, 150' Gait Level of Assist: 4 Gait Persons Needed: 1 Gait Assistive Device: Walker Lior Patient needs min assist for balance and slight assist with weight shifting, uses right AFO. Exercises Supine Ex: Bridging, Quad Set, Glut sets, Heel Slides (AAROM), Short Arc Quads (AAROM), Straight leg raise (AAROM), Hip abd/add (AAROM) Supine Reps: 15 also hooklying knee fallouts on the right side x15, LAQ right side for 5 min, sit to stand 2 sets of 10 Treatments bed mobility and transfers, ambulation, functional strengthening Assessment Current Status: Fair Progress improving ambulation and endurance PT Short Term Goals Short Term Goals Time Frame: September 17, 2018 Gait (FIM): 1 Gait Distance Comment: 20' Gait Level of Assist: 3 Gait Assistive Device: Walker Lior Wheelchair Distance: 150'x2 PT Piece Jobber Goals Alf Goals PT Alf Goals Time Frame: October 01, 2018 Transfers (B,C,W/C) (FIM): 4 Sit to Lying (QC): 4 Lying-Sitting on Side/Bed(QC): 4 Sit to Stand (QC): 4 Rollin Roll Left to Right (QC): 4 Chair/Nmp-ee-Ylbrb Xfer(QC): 4 Car Transfer (QC): 4 Gait (FIM): 1 Distance: 40' Walk 10 feet (QC): 3 Walk 10ft-Uneven Surface(QC): 3 Gait Level of Assist: 4 Gait Assistive Device: Walker Lior Stairs (FIM): 1 # of Steps: 1 1 Step (curb) (QC): 3 Stairs Level Of Assist: 4 PT Plan Problem List Problem List: Activity Tolerance, Functional Strength, Safety, Balance, Gait, Transfer, Bed Mobility, ROM Treatment/Plan Treatment Plan: Continue Plan of Care Treatment Plan: Bed Mobility, Concurrent Therapy, Education, Functional Activity Linda, Functional Strength, Group Therapy, Gait, Safety, Therapeutic Exercise, Transfers Treatment Duration: October 01, 2018 Frequency: At least 5 of 7 days/Wk (IRF) Estimated Hrs Per Day: 1.5 hours per day Patient and/or Family Agrees t: Yes Safety Risks/Education Patient Education: Gait Training, Transfer Techniques, Correct Positioning, Safety Issues Teaching Recipient: Patient Teaching Methods: Demonstration, Discussion Response to Teaching: Reinforcement Needed Time/GCodes Time In: 0900 Time Out: 1000 Total Billed Treatment Time: 60 Total Billed Treatment 1 visit GT 30' FA 10' EX 20' ALINE SÁNCHEZ PT September 17, 2018 10:02
--- NOTE | 2018-09-17 11:52 | NUR ---
COVERAGE ANALYST met with patient to review Team Conference Summary. As patient continues to require Mod assist for transfers and ambulation, SBA for supine to sit, Max assist for dressing and remains incontinent of bowel and bladder, Team has recommended patient be re-evaluated at next Team Conference on 09/22. Patient is agreeable. COVERAGE ANALYST provided update to patient's insurance provider, they have approved additional days with next clinical review due on 09/23. Patient does confirm that she will plan to stay with her daughter, Xenia in [place] at discharge as the home is more accessible than her own home. Patient expresses desire to complete a day pass on 09/24 to celebrate the anniversary of her daughter's one year memorial. COVERAGE ANALYST will request day pass from Dr. Banks. COVERAGE ANALYST was also able to verify from patient's employer that insurance coverage will remain active, even while not currently working. Patient is to pay premium to the insurance provider, when notified from provider. Patient expresses no concerns at this time. COVERAGE ANALYST will continue to follow.
--- NOTE | 2018-09-17 13:38 | Physical Therapy Daily Note ---
PT Daily Note-Current Subjective Patient in recliner pre tx, agrees to PT, has no complaints of pain. Appearance Patient in bed post tx with nurse call, phone, tray, all needs met. Mental Status Patient Orientation: Person, Place, Situation Transfers Therapy Code Descriptions/Definitions Functional [place] Measure: 0=Not Assessed/NA 4=Minimal Assistance 1=Total Assistance 5=Supervision or Setup 2=Maximal Assistance 6=Modified [place] 3=Moderate Assistance 7=Complete [place] Therapy Quality Codes: 6 Independent with activity with or without an assistive device 5 Patient requires set up or clean up by helper. Patient completes activity by themselves 4 Supervision or touching assist (CGA). [employer] provide cues , steadying assist 3 The helper provides less than half the effort to complete the activity 2 The helper provides more than half the effort to complete the activity 1 Dependent. The helper does all the effort to complete an activity 7 Patient refused to complete or attempt activity 9 The patient did not perform the activity before the current illness or injury 88 Not attempted due to Medical conditions or safety concerns Transfers (B, C, W/C) (FIM): 4 Scootin Rollin Supine to/from Sit: 5 Sit to/from Stand: 4 Bed to/from Chair: 4 Weight Bearing Right Lower Extremity: Right Weight Bearing/Tolerated Gait Training Gait (FIM): 4 Distance: 150' Gait Level of Assist: 4 Gait Persons Needed: 1 Gait Assistive Device: Walker Lior Min assist for slight help weight shifting and balance. Right AFO. Patient has some pain due to the AFO digging into her foot on the medial side so it was taken off after ambulation and she propelled a wheelchair back to her room when done in the therapy gym. Wheelchair Training Does the Pt Use a Wheelchair?: Yes Wheelchair (FIM): 5 Distance: 150' Wheelchair Level of Assist: 5 Type of Wheelchair: Manual Exercises NuStep Minutes: 15 NuStep Workload: 4 Treatments bed mobility and transfers, ambulation, functional strengthening Assessment Current Status: Fair Progress improving general mobility PT Short Term Goals Short Term Goals Time Frame: September 17, 2018 Gait (FIM): 1 Gait Distance Comment: 20' Gait Level of Assist: 3 Gait Assistive Device: Walker Lior Wheelchair Distance: 150'x2 PT Longterm Goals Longterm Goals PT Refrigeration Manager Goals Time Frame: October 01, 2018 Transfers (B,C,W/C) (FIM): 4 Sit to Lying (QC): 4 Lying-Sitting on Side/Bed(QC): 4 Sit to Stand (QC): 4 Rollin Roll Left to Right (QC): 4 Chair/Ivb-gu-Bgkvt Xfer(QC): 4 Car Transfer (QC): 4 Gait (FIM): 1 Distance: 40' Walk 10 feet (QC): 3 Walk 10ft-Uneven Surface(QC): 3 Gait Level of Assist: 4 Gait Assistive Device: Walker Lior Stairs (FIM): 1 # of Steps: 1 1 Step (curb) (QC): 3 Stairs Level Of Assist: 4 PT Plan Problem List Problem List: Activity Tolerance, Functional Strength, Safety, Balance, Gait, Transfer, Bed Mobility, ROM Treatment/Plan Treatment Plan: Continue Plan of Care Treatment Plan: Bed Mobility, Concurrent Therapy, Education, Functional Activity Linda, Functional Strength, Group Therapy, Gait, Safety, Therapeutic Exercise, Transfers Treatment Duration: October 01, 2018 Frequency: At least 5 of 7 days/Wk (IRF) Estimated Hrs Per Day: 1.5 hours per day Patient and/or Family Agrees t: Yes Safety Risks/Education Patient Education: Gait Training, Transfer Techniques, Correct Positioning, W/ C Management, Safety Issues Teaching Recipient: Patient Teaching Methods: Demonstration, Discussion Response to Teaching: Reinforcement Needed Time/GCodes Time In: 1300 Time Out: 1330 Total Billed Treatment Time: 30 Total Billed Treatment 1 visit EX 15' FA 15' ALINE SÁNCHEZ PT September 17, 2018 13:38
[2018-09-17 17:37] VITALS: BP 159/82
--- NOTE | 2018-09-17 19:19 | NUR ---
bedside report received from NANCY MOODY, Assume care of pt
[2018-09-17] MEDS: ATORVASTATIN 80 MG (LIPITOR) TABLET PO SCH (20:33)
[2018-09-17] MEDS: BACLOFEN 10 MG (LIORESAL) TAB PO PRN (20:37)
--- NOTE | 2018-09-17 20:37 | NUR ---
took 1 package of miralax instead of 2, refused Colace & Senokot, took baclofen 10mg
--- NOTE | 2018-09-17 21:00 | NUR ---
assessments & interventions completed, see assessments & interventions, up to commode with 1 person assist, cane & gait belt.
[2018-09-18 05:33] VITALS: BP 147/7
--- NOTE | 2018-09-18 06:44 | NUR ---
pt did not want to get up in the chair yet
--- NOTE | 2018-09-18 07:37 | NUR ---
bedside report given to NICHOLAS MOODY
[2018-09-18 08:00] VITALS: BP 138/81
--- NOTE | 2018-09-18 08:00 | NUR ---
STATES INCONTINENCY IS BETTER. DENIES COMPLAINTS. STATES BACLOFEN HELPING.
[2018-09-18] MEDS: CLOPIDOGREL 75 MG (PLAVIX) TABLET PO SCH (08:48)
[2018-09-18] MEDS: POLYETHYLENE GLYCOL 17 GM (MIRALAX) PACK PO SCH ×2 (08:48→20:24)
[2018-09-18] MEDS: lisINopril 20 MG (PRINIVIL) TABLET PO SCH (08:48)
[2018-09-18] MEDS: DOCUSATE SODIUM 100 MG (COLACE) CAP PO SCH ×2 (08:49→20:26)
[2018-09-18] MEDS: SENNA W/DOCUSATE (SENOKOT S) TABLET PO SCH ×2 (08:49→20:26)
[2018-09-18] MEDS: BACLOFEN 10 MG (LIORESAL) TAB PO PRN ×2 (08:53→20:23)
--- NOTE | 2018-09-18 10:31 | PM&R Progress Note ---
Subjective HPI/CC On Admission Date Seen by Provider: September 18, 2018 Time Seen by Provider: 10:30 CC: CVA w/right sided weakness HPI: This is a 57yoWF clinic patient of Dr Guajardo at his [facility] [facility] who presented to the [facility] ER w/abrupt onset right sided deficit with dysarthria. tPA was administered and patient was then transferred to [facility] for neurological services. 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 No dysphagia was noted during acute care stay but dysarthria remains with word searching processes. She is in good spirits on Celexa per protocol. Constipation is resolving at time of DC. No pain is reported. Patient worked at a [employer] center prior to the CVA and is to a spouse who is disabled. Smoking cessation counseled. Patient was placed on statin therapy and Plavix was added to regimen with no side effects. 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 Subjective/Events-last exam Pt is working with PT very hard and and walking with a quad cane today Very motivated Took a shower and increasing independence of her ADLs and OT thinks she is doing very well Celexa increased from 10 to 20 mg and seems to be helping her significantly Overall optimistic about recovery Bowels moving now and likes to take the MiraLAX which seems to really help Eating and drinking well Reviewed meds Conferred with RN. Reviewed therapy notes. Review of Systems General: Fatigue Neurological: Weakness, Numbness, Incoordination Objective Exam Vital Signs Vital Signs Date Time Temp Pulse Resp B/P (MAP) Pulse Ox O2 Delivery O2 Flow Rate FiO2 09/18/18 09:00 Room Air 09/18/18 05:33 97.7 68 18 147/7 (53) 97 Capillary Refill : Less Than 3 Seconds General Appearance: No Apparent Distress, WD/WN, Chronically ill HEENT: PERRL/EOMI, Normal ENT Inspection, Pharynx Normal, Moist Mucous Membranes Neck: Full Range of Motion, Normal Inspection, Non Tender, Supple Respiratory: Chest Non Tender, Lungs Clear, Normal Breath Sounds, No Accessory Muscle Use, No Respiratory Distress Cardiovascular: Regular Rate, Rhythm, No Edema, No Gallop, No JVD, No Murmur Gastrointestinal: Normal Bowel Sounds, No Organomegaly, No Pulsatile Mass, Non Tender, Soft Back: Normal Inspection, No CVA Tenderness, No Vertebral Tenderness Extremity: Normal Capillary Refill, Normal Inspection, Normal Range of Motion, Non Tender, No Calf Tenderness, No Pedal Edema Neurologic/Psychiatric: Alert, Oriented x3, Abnormal Cerebellar Tests, Abnormal Gait, Depressed Affect, Motor Weakness (right sided 1/5 arm and leg), Other (dysarthria, word searching) Skin: Normal Color, Warm/Dry Lymphatic: No Adenopathy Results/Procedures Lab Patient resulted labs reviewed. FIM Transfers Therapy Code Descriptions/Definitions Functional [place] Measure: 0=Not Assessed/NA 4=Minimal Assistance 1=Total Assistance 5=Supervision or Setup 2=Maximal Assistance 6=Modified [place] 3=Moderate Assistance 7=Complete [place] Therapy Quality Codes: 6 Independent with activity with or without an assistive device 5 Patient requires set up or clean up by helper. Patient completes activity by themselves 4 Supervision or touching assist (CGA). [place] provide cues , steadying assist 3 The helper provides less than half the effort to complete the activity 2 The helper provides more than half the effort to complete the activity 1 Dependent. The helper does all the effort to complete an activity 7 Patient refused to complete or attempt activity 9 The patient did not perform the activity before the current illness or injury 88 Not attempted due to Medical conditions or safety concerns Transfers (B, C, W/C) (FIM): 4 Scootin Rollin Roll Left to Right (QC): 4 Supine to/from Sit: 5 Sit to/from Stand: 4 Sit to Lying (QC): 3 Sit to Stand (QC): 3 Chair/Ogc-zu-Rjwgi Xfer(QC): 2 Bed to/from Chair: 4 Car Transfer (QC): 2 Gait Training Does the Patient Walk?: Yes Gait (FIM): 4 Distance (FIM): 1=up to 49 ft (12ftx2) Distance: 150' Gait Level of Assist: 4 Gait Persons Needed: 1 Gait Assistive Device: Walker Lior Wheelchair Training Does the Pt Use a Wheelchair?: Yes Wheelchair (FIM): 5 Wheelchair Distance: 3=150 ft Distance: 150' Wheelchair Level of Assist: 5 Wheel 50 ft with 2 turns (QC): 4 Wheel 150 ft (QC): 4 Type of Wheelchair: Manual Mental Status/Objective Comprehension: 7 Expression: 7 Social Interaction: 7 Problem Solvin Memory: 7 ADL-Treatment Feedin Eating (QC): 6 Groomin Oral Hygiene (QC): 6 Bathin (Assist only to wash L UE. Using shower bench, grabbar and hand held shower pt able to complete with SBA for safety.) Bathing Location: R Arm, L Upper Leg, R Upper Leg, L Lower Leg (including foot) , R Lower Leg (including foot), Chest, Abdomen, Buttocks (shifted side to side to cleanse), Perineal Area Shower/Bathe Self (QC): 3 Upper Extremity Dressin (Education on one handed dressing techniques then verbal cues and min A to complete.) Upper Body Dressing (QC): 3 Lower Extremity Dressin (Assist to don/doff clothing over R foot then pt able to manipulate clothing with min A in standing. ) Lower Body Dressing (QC): 2 On/Off Footwear (QC): 2 Toiletin (Assist to cleanse after BM. Assist in stand to manipulate clothing.) Toileting Hygiene (QC): 3 Toilet/Commode Transfer: 4 (Min A using grabbars and w/c.) Toilet Transfer (QC): 3 Shower: 3 Assessment/Plan Assessment and Plan Assess & Plan/Chief Complaint Assessment: CVA w/right sided weakness Dysarthria Incontinence urinary Constipation-resolved 09/11/18 Smoker HLP Plan: IRF protocols BM regimen Smoking cessation Fall risk prevention Monitor BP Urinary continence training Baclofen for spastic muscles Psych consult reviewed and will increase dose of Celexa to 20mg Disability papers per SW Maintain increased Celexa to 20mg daily (1) CVA (cerebral vascular accident) (2) Constipation (3) Dysarthria (4) Depression (5) Grief reaction (6) Hyperlipidemia (7) Incontinence of urine (8) Right sided weakness (9) Smoker (10) Spasticity as late effect of cerebrovascular accident (CVA) (11) Risk for falls (12) Taste impairment MILLY KING DO September 18, 2018 10:31
--- NOTE | 2018-09-18 11:32 | Physical Therapy Daily Note ---
PT Daily Note-Current Subjective Pt sitting in recliner upon arrival. Pt agrees to PT. Pain Numeric Pain Scale: 5-Moderate Pain Location: Right Location Body Site: Calf Pain Description: Ache Comment: Pt reports discomfort with AFO when wearing although it is needed for walk Mental Status Patient Orientation: Person, Place, Time, Situation Attachments: Other-See Comments (AFO for R LE) Transfers Therapy Code Descriptions/Definitions Functional [place] Measure: 0=Not Assessed/NA 4=Minimal Assistance 1=Total Assistance 5=Supervision or Setup 2=Maximal Assistance 6=Modified [place] 3=Moderate Assistance 7=Complete [place] Therapy Quality Codes: 6 Independent with activity with or without an assistive device 5 Patient requires set up or clean up by helper. Patient completes activity by themselves 4 Supervision or touching assist (CGA). [place] provide cues , steadying assist 3 The helper provides less than half the effort to complete the activity 2 The helper provides more than half the effort to complete the activity 1 Dependent. The helper does all the effort to complete an activity 7 Patient refused to complete or attempt activity 9 The patient did not perform the activity before the current illness or injury 88 Not attempted due to Medical conditions or safety concerns Scootin Sit to/from Stand: 4 Sit to Stand (QC): 4 Weight Bearing Right Lower Extremity: Right Weight Bearing/Tolerated Gait Training Does the Patient Walk?: Yes Gait (FIM): 4 Distance (FIM): 3=150 ft Distance: 150' Walk 10 feet (QC): 4 Walk 50 ft with 2 Turns(QC): 4 Walk 150 ft (QC): 4 Gait Level of Assist: 4 Gait Persons Needed: 1 Gait Assistive Device: Walker Lior Pt needs occasional VC for sequencing during ambulation. Pt has occasional LOB but able to correct. Wheelchair Training Does the Pt Use a Wheelchair?: No Exercises Seated Therapy Exercises: Ankle pumps, Long arc quads, Hip flexion, Kicking activity Seated Reps: [address] ADMINISTRATOR assists pt with donning & doffing pt's AFO for R LE. Pt transfers from recliner to standing and ambulates in hallway. Pt completes Seated Ex in chair before ambulating back to room to rest in recliner. Pt has all needs met. Assessment Current Status: Good Progress Pt needs VC to fiber picker R foot as well as sequencing to prevent LOB. Pt is improving with strength and ambulation although its still a work in progress. PT Short Term Goals Short Term Goals Time Frame: September 17, 2018 Gait (FIM): 1 Gait Distance Comment: 20' Gait Level of Assist: 3 Gait Assistive Device: Walker Lior Wheelchair Distance: 150' PT Snf Goals Snf Goals PT Film Casting Operator Goals Time Frame: October 01, 2018 Transfers (B,C,W/C) (FIM): 4 Sit to Lying (QC): 4 Lying-Sitting on Side/Bed(QC): 4 Sit to Stand (QC): 4 Rollin Roll Left to Right (QC): 4 Chair/Wxa-wo-Ynvhm Xfer(QC): 4 Car Transfer (QC): 4 Gait (FIM): 1 Distance: 40' Walk 10 feet (QC): 3 Walk 10ft-Uneven Surface(QC): 3 Gait Level of Assist: 4 Gait Assistive Device: Walker Lior Stairs (FIM): 1 # of Steps: 1 1 Step (curb) (QC): 3 Stairs Level Of Assist: 4 PT Plan Problem List Problem List: Activity Tolerance, Functional Strength, Safety, Balance, Gait, Transfer Treatment/Plan Treatment Plan: Continue Plan of Care Treatment Plan: Bed Mobility, Concurrent Therapy, Education, Functional Activity Linda, Functional Strength, Group Therapy, Gait, Safety, Therapeutic Exercise, Transfers Treatment Duration: October 01, 2018 Frequency: At least 5 of 7 days/Wk (IRF) Estimated Hrs Per Day: 1.5 hours per day Patient and/or Family Agrees t: Yes Safety Risks/Education Patient Education: Gait Training, Transfer Techniques, Correct Positioning, Safety Issues Teaching Recipient: Patient Teaching Methods: Demonstration, Discussion Response to Teaching: Verbalize Understanding Time/GCodes Time In: 1005 Time Out: 1035 Total Billed Treatment Time: 30 Total Billed Treatment 1, GT (15m) & EX (15m) G Codes Necessary: LISA Mendoza SUPERVISOR ROAD ADMINISTRATOR September 18, 2018 11:32
[2018-09-18 15:59] VITALS: BP 116/71
[2018-09-18] MEDS: ATORVASTATIN 80 MG (LIPITOR) TABLET PO SCH (20:23)
[2018-09-19 06:07] VITALS: BP 157/83
[2018-09-19 08:00] VITALS: BP 137/84
[2018-09-19] MEDS: CLOPIDOGREL 75 MG (PLAVIX) TABLET PO SCH (08:53)
[2018-09-19] MEDS: lisINopril 20 MG (PRINIVIL) TABLET PO SCH (08:53)
[2018-09-19] MEDS: POLYETHYLENE GLYCOL 17 GM (MIRALAX) PACK PO SCH ×2 (08:54→20:06)
[2018-09-19] MEDS: DOCUSATE SODIUM 100 MG (COLACE) CAP PO SCH ×2 (08:54→20:07)
[2018-09-19] MEDS: SENNA W/DOCUSATE (SENOKOT S) TABLET PO SCH ×2 (08:55→20:07)
[2018-09-19] MEDS: BACLOFEN 10 MG (LIORESAL) TAB PO PRN ×2 (08:59→20:06)
--- NOTE | 2018-09-19 10:37 | PM&R Progress Note ---
Subjective HPI/CC On Admission Date Seen by Provider: September 19, 2018 Time Seen by Provider: 10:30 CC: CVA w/right sided weakness HPI: This is a 57yoWF clinic patient of Dr Guajardo at his [place] clinic who presented to the [facility] ER w/abrupt onset right sided deficit with dysarthria. tPA was administered and patient was then transferred to [facility] for neurological services. 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 No dysphagia was noted during acute care stay but dysarthria remains with word searching processes. She is in good spirits on Celexa per protocol. Constipation is resolving at time of DC. No pain is reported. Patient worked at a [employer] center prior to the CVA and is to a spouse who is disabled. Smoking cessation counseled. Patient was placed on statin therapy and Plavix was added to regimen with no side effects. 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 Subjective/Events-last exam Pt is working with PT very hard and and walking and improving by the day Very motivated Increasing independence of her ADLs and OT thinks she is doing very well Celexa increased from 10 to 20 mg and seems to be helping her significantly so will maintain Overall optimistic about recovery Bowels moving now and likes to take the MiraLAX which seems to really help Eating and drinking well Reviewed meds Conferred with RN. Reviewed therapy notes. Review of Systems General: Fatigue Neurological: Weakness, Numbness, Incoordination Objective Exam Vital Signs Vital Signs Date Time Temp Pulse Resp B/P (MAP) Pulse Ox O2 Delivery O2 Flow Rate FiO2 09/19/18 09:00 Room Air 09/19/18 06:07 98.6 56 16 157/83 (107) 97 Capillary Refill : Less Than 3 Seconds General Appearance: No Apparent Distress, WD/WN, Chronically ill HEENT: PERRL/EOMI, Normal ENT Inspection, Pharynx Normal, Moist Mucous Membranes Neck: Full Range of Motion, Normal Inspection, Non Tender, Supple Respiratory: Chest Non Tender, Lungs Clear, Normal Breath Sounds, No Accessory Muscle Use, No Respiratory Distress Cardiovascular: Regular Rate, Rhythm, No Edema, No Gallop, No JVD, No Murmur Gastrointestinal: Normal Bowel Sounds, No Organomegaly, No Pulsatile Mass, Non Tender, Soft Back: Normal Inspection, No CVA Tenderness, No Vertebral Tenderness Extremity: Normal Capillary Refill, Normal Inspection, Normal Range of Motion, Non Tender, No Calf Tenderness, No Pedal Edema Neurologic/Psychiatric: Alert, Oriented x3, Abnormal Cerebellar Tests, Abnormal Gait, Depressed Affect, Motor Weakness, Other Skin: Normal Color, Warm/Dry Lymphatic: No Adenopathy Results/Procedures Lab Patient resulted labs reviewed. FIM Transfers Therapy Code Descriptions/Definitions Functional [place] Measure: 0=Not Assessed/NA 4=Minimal Assistance 1=Total Assistance 5=Supervision or Setup 2=Maximal Assistance 6=Modified [place] 3=Moderate Assistance 7=Complete [place] Therapy Quality Codes: 6 Independent with activity with or without an assistive device 5 Patient requires set up or clean up by helper. Patient completes activity by themselves 4 Supervision or touching assist (CGA). [place] provide cues , steadying assist 3 The helper provides less than half the effort to complete the activity 2 The helper provides more than half the effort to complete the activity 1 Dependent. The helper does all the effort to complete an activity 7 Patient refused to complete or attempt activity 9 The patient did not perform the activity before the current illness or injury 88 Not attempted due to Medical conditions or safety concerns Transfers (B, C, W/C) (FIM): 4 Scootin Rollin Roll Left to Right (QC): 4 Supine to/from Sit: 5 Sit to/from Stand: 4 Sit to Lying (QC): 3 Sit to Stand (QC): 4 Chair/Kws-bp-Dfrjw Xfer(QC): 2 Bed to/from Chair: 4 Car Transfer (QC): 2 Gait Training Does the Patient Walk?: Yes Gait (FIM): 4 Distance (FIM): 3=150 ft Distance: 150' Walk 10 feet (QC): 4 Walk 50 ft with 2 Turns(QC): 4 Walk 150 ft (QC): 4 Gait Level of Assist: 4 Gait Persons Needed: 1 Gait Assistive Device: Walker Lior Wheelchair Training Does the Pt Use a Wheelchair?: No Wheelchair (FIM): 5 Wheelchair Distance: 3=150 ft Distance: 150' Wheelchair Level of Assist: 5 Wheel 50 ft with 2 turns (QC): 4 Wheel 150 ft (QC): 4 Type of Wheelchair: Manual Mental Status/Objective Comprehension: 7 Expression: 7 Social Interaction: 7 Problem Solvin Memory: 7 ADL-Treatment Feedin Eating (QC): 6 Groomin Oral Hygiene (QC): 6 Bathin (Assist only to wash L UE. Using shower bench, grabbar and hand held shower pt able to complete with SBA for safety.) Bathing Location: R Arm, L Upper Leg, R Upper Leg, L Lower Leg (including foot) , R Lower Leg (including foot), Chest, Abdomen, Buttocks (shifted side to side to cleanse), Perineal Area Shower/Bathe Self (QC): 3 Upper Extremity Dressin (Education on one handed dressing techniques then verbal cues and min A to complete.) Upper Body Dressing (QC): 3 Lower Extremity Dressin (Assist to don/doff clothing over R foot then pt able to manipulate clothing with min A in standing. ) Lower Body Dressing (QC): 2 On/Off Footwear (QC): 2 Toiletin (Assist to cleanse after BM. Assist in stand to manipulate clothing.) Toileting Hygiene (QC): 3 Toilet/Commode Transfer: 4 (Min A using grabbars and w/c.) Toilet Transfer (QC): 3 Shower: 3 Assessment/Plan Assessment and Plan Assess & Plan/Chief Complaint Assessment: CVA w/right sided weakness Dysarthria Incontinence urinary Constipation-resolved 09/11/18 Smoker HLP Plan: IRF protocols BM regimen Smoking cessation Fall risk prevention Monitor BP Urinary continence training Baclofen for spastic muscles Psych consult reviewed and will increase dose of Celexa to 20mg Disability papers per SW Maintain increased Celexa to 20mg daily (1) CVA (cerebral vascular accident) (2) Constipation (3) Dysarthria (4) Depression (5) Grief reaction (6) Hyperlipidemia (7) Incontinence of urine (8) Right sided weakness (9) Smoker (10) Spasticity as late effect of cerebrovascular accident (CVA) (11) Risk for falls (12) Taste impairment MILLY KING DO September 19, 2018 10:37
--- NOTE | 2018-09-19 11:00 | NUR ---
PATIENT REQUESTING DAY PASS FOR SEPTEMBER 24 WHICH IS 1 YEAR ANNIVERSARY OF DAUGHTER'S . ORDER RECEIVED.
--- NOTE | 2018-09-19 17:00 | NUR ---
FAMILY VISITED THIS AFTERNOON.
[2018-09-19 17:40] VITALS: BP 146/85
[2018-09-19] MEDS: ATORVASTATIN 80 MG (LIPITOR) TABLET PO SCH (20:06)
[2018-09-20 05:41] VITALS: BP 158/82
--- NOTE | 2018-09-20 08:19 | Occupational Ther Daily Note ---
OT Current Status-Daily Note Subjective Pt alert, lying in bed. Pt agrees to therapy. No c/o pain. Pt states that she is stiff this morning. Mental Status/Objective Patient Orientation: Person, Place, Time, Situation Therapy Code Descriptions/Definitions Functional [place] Measure: 0=Not Assessed/NA 4=Minimal Assistance 1=Total Assistance 5=Supervision or Setup 2=Maximal Assistance 6=Modified [place] 3=Moderate Assistance 7=Complete [place] ADL-Treatment Pt agrees to shower. Pt declined to ambulate to shower. Pt only required assist to dry underarms and squeeze conditioner bottle to get conditioner. Pt educated on one handed technique for dressing. Pt verbalized understanding, cues needed for correct technique. After therapy, pt sitting in recliner with call light/phone in reach. Therapy Code Descriptions/Definitions Functional [place] Measure: 0=Not Assessed/NA 4=Minimal Assistance 1=Total Assistance 5=Supervision or Setup 2=Maximal Assistance 6=Modified [place] 3=Moderate Assistance 7=Complete [place] Therapy Quality Codes: 6 Independent with activity with or without an assistive device 5 Patient requires set up or clean up by helper. Patient completes activity by themselves 4 Supervision or touching assist (CGA). [place] provide cues , steadying assist 3 The helper provides less than half the effort to complete the activity 2 The helper provides more than half the effort to complete the activity 1 Dependent. The helper does all the effort to complete an activity 7 Patient refused to complete or attempt activity 9 The patient did not perform the activity before the current illness or injury 88 Not attempted due to Medical conditions or safety concerns Eating (FIM): 7 (Pt able to open containers/packages then use regular utensils to eat.) Eating (QC): 6 Grooming (FIM): 6 (Sitting in w/c at sink to complete own grooming.) Oral Hygiene (QC): 6 Bathing (FIM): 4 (Using grabbar, hand held shower and shower bench. Pt leaned side to side to cleanse buttocks. SBA for safety. Assist to dry underarms.) Bathing Location: L Arm, R Arm, L Upper Leg, R Upper Leg, L Lower Leg ( including foot), R Lower Leg (including foot), Chest, Abdomen, Buttocks, Perineal Area Shower/Bathe Self (QC): 3 Upper Body (FIM): 2 (Pt continues to need cues for one handed technique with dressing. Assist to thread R UE into sleeve then able to complete L and over head. Assist to pull down back.) Upper Body Dressing (QC): 2 Lower Body Dressing (FIM): 2 (Assist to keep R LE over L LE to don clothing. Pt able to complete threading LE's. CGA in standing while pt hikes pants over hips. Assist to don socks/shoes. Pt doffs with CGA.) Lower Body Dressing (QC): 2 On/Off Footwear (QC): 2 Transfers (B, C, W/C) (FIM): 4 (CGA and cues for R foot placement.) Shower Transfer(FIM): 4 (Min A using shower bench, grabbar and w/c.) OT Short Term Goals Short Term Goals Time Frame: September 17, 2018 Bathing(FIM): 4 Upper Body Dressing(FIM): 3 Lower Body Dressing(FIM): 3 Toileting(FIM): 3 Toilet/Commode Transfer(FIM): 4 Additional Short Term Goals: 2-Verbalize Understanding, 3-ImproveStrength/Linda 1=Demonstrate adherence to instructed precautions during ADL tasks. 2=Patient will verbalize/demonstrate understanding of assistive devices/ modifications for ADL. 3=Patient will improve strength/tolerance for activity to enable patient to perform ADL's. OT Eight Section Blower Goals Eight Section Blower Goals Time Frame: October 01, 2018 Eating (FIM): 6 Eating (QC): 6 Groomin Oral Hygiene (QC): 6 Bathing(FIM): 5 Shower/Bathe Self (QC): 4 Upper Body Dressing(FIM): 5 Upper Body Dressing (QC): 5 Lower Body Dressing(FIM): 4 Lower Body Dressing (QC): 4 On/Off Footwear (QC): 4 Toileting(FIM): 5 Toileting Hygiene (QC): 4 Toilet/Commode Transfer(FIM): 5 Toilet/Commode Transfer (QC): 5 Shower Transfer(FIM): 5 Additional Goals: 2-Verbalize Understanding, 3-ImproveStrength/Linda 1=Demonstrate adherence to instructed precautions during ADL tasks. 2=Patient will verbalize/demonstrate understanding of assistive devices/ modifications for ADL. 3=Patient will improve strength/tolerance for activity to enable patient to perform ADL's. OT Education/Plan Problem List/Assessment Assessment: Decreased UE Strength, Impaired Coordination, Impaired Funct Balance, Impaired Self-Care Skills, Restricted Funct UE ROM Discharge Recommendations Plan/Recommendations: Continue POC Treatment Plan/Plan of Care Patient would benefit from OT for education, treatment and training to promote independence in ADL's, mobility, safety and/or upper extremity function for ADL' s. Plan of Care: ADL Retraining, Functional Mobility, Group Exercise/Act as Ind, UE Funct Exercise/Act, UE Neuromus Re-Ed/Coord Treatment Duration: October 01, 2018 Frequency: At least 5 of 7 days/Wk (IRF) Estimated Hrs Per Day: 1.5 hours per day Rehab Potential: Fair Time/GCodes Start Time: 07:09 Stop Time: 08:39 Total Time Billed (hr/min): 90 Billed Treatment Time 1 visit-ADL 6 (90 min) TJ PURDY September 20, 2018 08:19
--- NOTE | 2018-09-20 08:26 | PM&R Progress Note ---
Subjective HPI/CC On Admission Date Seen by Provider: September 20, 2018 Time Seen by Provider: 08:30 CC: CVA w/right sided weakness HPI: This is a 57yoWF clinic patient of Dr Guajardo at his [place] clinic who presented to the [facility] ER w/abrupt onset right sided deficit with dysarthria. tPA was administered and patient was then transferred to [facility] for neurological services. 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 No dysphagia was noted during acute care stay but dysarthria remains with word searching processes. She is in good spirits on Celexa per protocol. Constipation is resolving at time of DC. No pain is reported. Patient worked at a [employer] center prior to the CVA and is to a spouse who is disabled. Smoking cessation counseled. Patient was placed on statin therapy and Plavix was added to regimen with no side effects. 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 Subjective/Events-last exam Pt is working with PT very hard and and walking and improving by the day Very motivated Increasing independence of her ADLs and OT thinks she is doing very well Celexa increased dose working well Overall optimistic about recovery Bowels moving now and likes to take the MiraLAX which seems to really help and she takes it at home Eating and drinking well Edema in feet and wants to restart her HCTZ 12.5mg so RN ordered it Reviewed meds Conferred with RN. Reviewed therapy notes. Review of Systems Neurological: Weakness, Numbness, Incoordination Objective Exam Vital Signs Vital Signs Date Time Temp Pulse Resp B/P (MAP) Pulse Ox O2 Delivery O2 Flow Rate FiO2 09/20/18 09:00 Room Air 09/20/18 05:41 96.9 62 16 158/82 (107) 97 Capillary Refill : Less Than 3 Seconds General Appearance: No Apparent Distress, WD/WN, Chronically ill HEENT: PERRL/EOMI, Normal ENT Inspection, Pharynx Normal, Moist Mucous Membranes Neck: Full Range of Motion, Normal Inspection, Non Tender, Supple Respiratory: Chest Non Tender, Lungs Clear, Normal Breath Sounds, No Accessory Muscle Use, No Respiratory Distress Cardiovascular: Regular Rate, Rhythm, No Edema, No Gallop, No JVD, No Murmur Gastrointestinal: Normal Bowel Sounds, No Organomegaly, No Pulsatile Mass, Non Tender, Soft Back: Normal Inspection, No CVA Tenderness, No Vertebral Tenderness Extremity: Normal Capillary Refill, Normal Inspection, Normal Range of Motion, Non Tender, No Calf Tenderness, No Pedal Edema Neurologic/Psychiatric: Alert, Oriented x3, Abnormal Cerebellar Tests, Abnormal Gait, Depressed Affect, Motor Weakness, Other Skin: Normal Color, Warm/Dry Lymphatic: No Adenopathy Results/Procedures Lab Patient resulted labs reviewed. FIM Transfers Therapy Code Descriptions/Definitions Functional [place] Measure: 0=Not Assessed/NA 4=Minimal Assistance 1=Total Assistance 5=Supervision or Setup 2=Maximal Assistance 6=Modified [place] 3=Moderate Assistance 7=Complete [place] Therapy Quality Codes: 6 Independent with activity with or without an assistive device 5 Patient requires set up or clean up by helper. Patient completes activity by themselves 4 Supervision or touching assist (CGA). [place] provide cues , steadying assist 3 The helper provides less than half the effort to complete the activity 2 The helper provides more than half the effort to complete the activity 1 Dependent. The helper does all the effort to complete an activity 7 Patient refused to complete or attempt activity 9 The patient did not perform the activity before the current illness or injury 88 Not attempted due to Medical conditions or safety concerns Transfers (B, C, W/C) (FIM): 4 Scootin Rollin Roll Left to Right (QC): 4 Supine to/from Sit: 5 Sit to/from Stand: 4 Sit to Lying (QC): 3 Sit to Stand (QC): 4 Chair/Wsm-qf-Puhmg Xfer(QC): 2 Bed to/from Chair: 4 Car Transfer (QC): 2 Gait Training Does the Patient Walk?: Yes Gait (FIM): 4 Distance (FIM): 3=150 ft Distance: 150' Walk 10 feet (QC): 4 Walk 50 ft with 2 Turns(QC): 4 Walk 150 ft (QC): 4 Gait Level of Assist: 4 Gait Persons Needed: 1 Gait Assistive Device: Walker Lior Wheelchair Training Does the Pt Use a Wheelchair?: No Wheelchair (FIM): 5 Wheelchair Distance: 3=150 ft Distance: 150' Wheelchair Level of Assist: 5 Wheel 50 ft with 2 turns (QC): 4 Wheel 150 ft (QC): 4 Type of Wheelchair: Manual Mental Status/Objective Comprehension: 7 Expression: 7 Social Interaction: 7 Problem Solvin Memory: 7 ADL-Treatment Feedin Eating (QC): 6 Groomin Oral Hygiene (QC): 6 Bathin (Assist only to wash L UE. Using shower bench, grabbar and hand held shower pt able to complete with SBA for safety.) Bathing Location: R Arm, L Upper Leg, R Upper Leg, L Lower Leg (including foot) , R Lower Leg (including foot), Chest, Abdomen, Buttocks (shifted side to side to cleanse), Perineal Area Shower/Bathe Self (QC): 3 Upper Extremity Dressin (Education on one handed dressing techniques then verbal cues and min A to complete.) Upper Body Dressing (QC): 3 Lower Extremity Dressin (Assist to don/doff clothing over R foot then pt able to manipulate clothing with min A in standing. ) Lower Body Dressing (QC): 2 On/Off Footwear (QC): 2 Toiletin (Assist to cleanse after BM. Assist in stand to manipulate clothing.) Toileting Hygiene (QC): 3 Toilet/Commode Transfer: 4 (Min A using grabbars and w/c.) Toilet Transfer (QC): 3 Shower: 3 Assessment/Plan Assessment and Plan Assess & Plan/Chief Complaint Assessment: CVA w/right sided weakness Dysarthria Incontinence urinary Constipation-resolved 09/11/18 Smoker HLP Edema mild Plan: IRF protocols BM regimen Smoking cessation Fall risk prevention Monitor BP Urinary continence training Baclofen for spastic muscles Psych consult reviewed and will increase dose of Celexa to 20mg Disability papers per SW Maintain increased Celexa to 20mg daily HCTZ 12.5mg po daily (1) CVA (cerebral vascular accident) (2) Constipation (3) Dysarthria (4) Depression (5) Grief reaction (6) Hyperlipidemia (7) Incontinence of urine (8) Right sided weakness (9) Smoker (10) Spasticity as late effect of cerebrovascular accident (CVA) (11) Risk for falls (12) Taste impairment MILLY KING DO September 20, 2018 08:25
[2018-09-20] MEDS: CLOPIDOGREL 75 MG (PLAVIX) TABLET PO SCH (09:16)
[2018-09-20] MEDS: lisINopril 20 MG (PRINIVIL) TABLET PO SCH (09:16)
[2018-09-20] MEDS: HYDROCHLOROTHIAZIDE 12.5 MG (HCTZ) CAP PO SCH (09:16)
[2018-09-20] MEDS: SENNA W/DOCUSATE (SENOKOT S) TABLET PO SCH ×2 (09:16→20:48)
[2018-09-20] MEDS: DOCUSATE SODIUM 100 MG (COLACE) CAP PO SCH ×2 (09:17→20:48)
[2018-09-20] MEDS: POLYETHYLENE GLYCOL 17 GM (MIRALAX) PACK PO SCH ×2 (09:17→20:47)
--- NOTE | 2018-09-20 10:03 | Physical Therapy Daily Note ---
PT Daily Note-Current Subjective Patient in recliner pre tx, agrees to PT, has no complaints of pain at rest. Appearance Patient in recliner post tx with nurse call, phone, tray, all needs met. Mental Status Patient Orientation: Person, Place, Situation Transfers Therapy Code Descriptions/Definitions Functional [place] Measure: 0=Not Assessed/NA 4=Minimal Assistance 1=Total Assistance 5=Supervision or Setup 2=Maximal Assistance 6=Modified [place] 3=Moderate Assistance 7=Complete [place] Therapy Quality Codes: 6 Independent with activity with or without an assistive device 5 Patient requires set up or clean up by helper. Patient completes activity by themselves 4 Supervision or touching assist (CGA). [place] provide cues , steadying assist 3 The helper provides less than half the effort to complete the activity 2 The helper provides more than half the effort to complete the activity 1 Dependent. The helper does all the effort to complete an activity 7 Patient refused to complete or attempt activity 9 The patient did not perform the activity before the current illness or injury 88 Not attempted due to Medical conditions or safety concerns Transfers (B, C, W/C) (FIM): 4 Sit to/from Stand: 4 Bed to/from Chair: 4 Cues for hand placement and safety. Patient has a tendency to sit without reaching for armrest. Weight Bearing Right Lower Extremity: Right Weight Bearing/Tolerated Gait Training Gait (FIM): 2 Distance: 120'x2 Gait Level of Assist: 4 Gait Persons Needed: 1 Gait Assistive Device: Walker Lior Min assist for balance but barely, patient is almost CGA. Uses a right AFO. AFO is uncomfortable and digs into the bottom of her foot. An AFO with a full foot plate was obtained but it is too long for her shoe. About 1/2 inch was taken off but it is still too long. It will be modified again later. Exercises LAQ for 5 min right side, side stepping in parallel bars 6'x6 NuStep Minutes: 15 NuStep Workload: 4 Treatments transfers, ambulation, functional strengthening, manual right ankle stretching Assessment Current Status: Fair Progress improving balance during ambulation PT Short Term Goals Short Term Goals Time Frame: September 17, 2018 Gait (FIM): 1 Gait Distance Comment: 20' Gait Level of Assist: 3 Gait Assistive Device: Walker Lior Wheelchair Distance: 150' PT Fdc Goals Fdc Goals PT Manager Process Excellence Goals Time Frame: October 01, 2018 Transfers (B,C,W/C) (FIM): 4 Sit to Lying (QC): 4 Lying-Sitting on Side/Bed(QC): 4 Sit to Stand (QC): 4 Rollin Roll Left to Right (QC): 4 Chair/Gxq-hj-Iuglu Xfer(QC): 4 Car Transfer (QC): 4 Gait (FIM): 1 Distance: 40' Walk 10 feet (QC): 3 Walk 10ft-Uneven Surface(QC): 3 Gait Level of Assist: 4 Gait Assistive Device: Walker Lior Stairs (FIM): 1 # of Steps: 1 1 Step (curb) (QC): 3 Stairs Level Of Assist: 4 PT Plan Problem List Problem List: Activity Tolerance, Functional Strength, Safety, Balance, Gait, Transfer, Bed Mobility, ROM Treatment/Plan Treatment Plan: Continue Plan of Care Treatment Plan: Bed Mobility, Concurrent Therapy, Education, Functional Activity Linda, Functional Strength, Group Therapy, Gait, Safety, Therapeutic Exercise, Transfers Treatment Duration: October 01, 2018 Frequency: At least 5 of 7 days/Wk (IRF) Estimated Hrs Per Day: 1.5 hours per day Patient and/or Family Agrees t: Yes Safety Risks/Education Patient Education: Gait Training, Transfer Techniques, Correct Positioning, Safety Issues Teaching Recipient: Patient Teaching Methods: Demonstration, Discussion Response to Teaching: Reinforcement Needed Time/GCodes Time In: 0900 Time Out: 1000 Total Billed Treatment Time: 60 Total Billed Treatment 1 visit GT 20' FA 10' EX 30' ALINE SÁNCHEZ PT September 20, 2018 10:03
--- NOTE | 2018-09-20 13:36 | Physical Therapy Daily Note ---
PT Daily Note-Current Subjective Patient in recliner pre tx, agrees to PT, has no complaints of pain. Appearance Patient in recliner post tx with nurse call, phone, tray, all needs met. Mental Status Patient Orientation: Person, Place, Situation Transfers Therapy Code Descriptions/Definitions Functional [place] Measure: 0=Not Assessed/NA 4=Minimal Assistance 1=Total Assistance 5=Supervision or Setup 2=Maximal Assistance 6=Modified [place] 3=Moderate Assistance 7=Complete [place] Therapy Quality Codes: 6 Independent with activity with or without an assistive device 5 Patient requires set up or clean up by helper. Patient completes activity by themselves 4 Supervision or touching assist (CGA). [place] provide cues , steadying assist 3 The helper provides less than half the effort to complete the activity 2 The helper provides more than half the effort to complete the activity 1 Dependent. The helper does all the effort to complete an activity 7 Patient refused to complete or attempt activity 9 The patient did not perform the activity before the current illness or injury 88 Not attempted due to Medical conditions or safety concerns Transfers (B, C, W/C) (FIM): 4 Sit to/from Stand: 4 Bed to/from Chair: 4 Weight Bearing Right Lower Extremity: Right Weight Bearing/Tolerated Gait Training Gait (FIM): 2 Distance: 120'x2 Gait Level of Assist: 4 Gait Persons Needed: 1 Gait Assistive Device: Walker Lior Slow ambulation, uses a right AFO, a couple of instances of LOB to the right side during ambulation back to her room. Exercises sit to stand 2 sets of 5 and 1 set of 10 Treatments transfers, ambulation, functional strengthening Assessment Current Status: Fair Progress improving ambulation, other AFO was modified to fit her foot and shoe but she says it is uncomfortable on her heel, she would prefer to use the other one and try to get her swelling down in her right leg. PT Short Term Goals Short Term Goals Time Frame: September 17, 2018 Gait (FIM): 1 Gait Distance Comment: 20' Gait Level of Assist: 3 Gait Assistive Device: Walker Lior Wheelchair Distance: 150' PT Alf Goals Alf Goals PT Farmworker Animal Goals Time Frame: October 01, 2018 Transfers (B,C,W/C) (FIM): 4 Sit to Lying (QC): 4 Lying-Sitting on Side/Bed(QC): 4 Sit to Stand (QC): 4 Rollin Roll Left to Right (QC): 4 Chair/Ryv-jd-Iwcbt Xfer(QC): 4 Car Transfer (QC): 4 Gait (FIM): 1 Distance: 40' Walk 10 feet (QC): 3 Walk 10ft-Uneven Surface(QC): 3 Gait Level of Assist: 4 Gait Assistive Device: Walker Lior Stairs (FIM): 1 # of Steps: 1 1 Step (curb) (QC): 3 Stairs Level Of Assist: 4 PT Plan Problem List Problem List: Activity Tolerance, Functional Strength, Safety, Balance, Gait, Transfer, Bed Mobility, ROM Treatment/Plan Treatment Plan: Continue Plan of Care Treatment Plan: Bed Mobility, Concurrent Therapy, Education, Functional Activity Linda, Functional Strength, Group Therapy, Gait, Safety, Therapeutic Exercise, Transfers Treatment Duration: October 01, 2018 Frequency: At least 5 of 7 days/Wk (IRF) Estimated Hrs Per Day: 1.5 hours per day Patient and/or Family Agrees t: Yes Safety Risks/Education Patient Education: Gait Training, Transfer Techniques, Correct Positioning, Safety Issues Teaching Recipient: Patient Teaching Methods: Demonstration, Discussion Response to Teaching: Reinforcement Needed Time/GCodes Time In: 1300 Time Out: 1330 Total Billed Treatment Time: 30 Total Billed Treatment 1 visit EX 10' GT 20' ALINE SÁNCHEZ PT September 20, 2018 13:36
[2018-09-20 18:01] VITALS: BP 145/88
[2018-09-20] MEDS: ATORVASTATIN 80 MG (LIPITOR) TABLET PO SCH (20:49)
[2018-09-20] MEDS: BACLOFEN 10 MG (LIORESAL) TAB PO PRN (20:51)
[2018-09-21 05:57] VITALS: BP 145/79
[2018-09-21] MEDS: SENNA W/DOCUSATE (SENOKOT S) TABLET PO SCH ×2 (08:10→21:45)
[2018-09-21] MEDS: DOCUSATE SODIUM 100 MG (COLACE) CAP PO SCH ×2 (08:11→21:46)
[2018-09-21] MEDS: POLYETHYLENE GLYCOL 17 GM (MIRALAX) PACK PO SCH ×2 (08:11→21:45)
--- NOTE | 2018-09-21 08:32 | PM&R Progress Note ---
Subjective HPI/CC On Admission Date Seen by Provider: September 21, 2018 Time Seen by Provider: 08:30 CC: CVA w/right sided weakness HPI: This is a 57yoWF clinic patient of Dr Guajardo at his [place] [facility] who presented to the [facility] ER w/abrupt onset right sided deficit with dysarthria. tPA was administered and patient was then transferred to [facility] for neurological services. 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 No dysphagia was noted during acute care stay but dysarthria remains with word searching processes. She is in good spirits on Celexa per protocol. Constipation is resolving at time of DC. No pain is reported. Patient worked at a [employer] center prior to the CVA and is to a spouse who is disabled. Smoking cessation counseled. Patient was placed on statin therapy and Plavix was added to regimen with no side effects. 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 Subjective/Events-last exam Pt having diarrhea from multiple meds given yesterday so holding all laxatives. Edema is much improved with the addition of the 12.5 mg Hydrochlorothiazide. Denies any new pain except for the right foot AFO brace that rubs so will initiate compression stockings, knee high to help with the edema and help with the rubbing of the AFO brace. Overall doing very well and participating in therapy and very motivated. Reviewed meds Conferred with RN. Reviewed therapy notes. Review of Systems General: Fatigue Neurological: Weakness, Numbness, Incoordination Objective Exam Vital Signs Vital Signs Date Time Temp Pulse Resp B/P (MAP) Pulse Ox O2 Delivery O2 Flow Rate FiO2 09/21/18 18:00 100.0 70 18 144/83 (103) 98 Room Air Capillary Refill : Less Than 3 Seconds General Appearance: No Apparent Distress, WD/WN, Chronically ill HEENT: PERRL/EOMI, Normal ENT Inspection, Pharynx Normal, Moist Mucous Membranes Neck: Full Range of Motion, Normal Inspection, Non Tender, Supple Respiratory: Chest Non Tender, Lungs Clear, Normal Breath Sounds, No Accessory Muscle Use, No Respiratory Distress Cardiovascular: Regular Rate, Rhythm, No Edema, No Gallop, No JVD, No Murmur Gastrointestinal: Normal Bowel Sounds, No Organomegaly, No Pulsatile Mass, Non Tender, Soft Back: Normal Inspection, No CVA Tenderness, No Vertebral Tenderness Extremity: Normal Capillary Refill, Normal Inspection, Normal Range of Motion, Non Tender, No Calf Tenderness, No Pedal Edema Neurologic/Psychiatric: Alert, Oriented x3, Abnormal Cerebellar Tests, Abnormal Gait, Depressed Affect, Motor Weakness, Other Skin: Normal Color, Warm/Dry Lymphatic: No Adenopathy Results/Procedures Lab Patient resulted labs reviewed. FIM Transfers Therapy Code Descriptions/Definitions Functional [place] Measure: 0=Not Assessed/NA 4=Minimal Assistance 1=Total Assistance 5=Supervision or Setup 2=Maximal Assistance 6=Modified [place] 3=Moderate Assistance 7=Complete [place] Therapy Quality Codes: 6 Independent with activity with or without an assistive device 5 Patient requires set up or clean up by helper. Patient completes activity by themselves 4 Supervision or touching assist (CGA). [place] provide cues , steadying assist 3 The helper provides less than half the effort to complete the activity 2 The helper provides more than half the effort to complete the activity 1 Dependent. The helper does all the effort to complete an activity 7 Patient refused to complete or attempt activity 9 The patient did not perform the activity before the current illness or injury 88 Not attempted due to Medical conditions or safety concerns Transfers (B, C, W/C) (FIM): 4 Scootin Rollin Roll Left to Right (QC): 4 Supine to/from Sit: 5 Sit to/from Stand: 4 Sit to Lying (QC): 3 Sit to Stand (QC): 4 Chair/Muj-ep-Hkrdf Xfer(QC): 2 Bed to/from Chair: 4 Car Transfer (QC): 2 Gait Training Does the Patient Walk?: Yes Gait (FIM): 2 Distance (FIM): 3=150 ft Distance: 120'x2 Walk 10 feet (QC): 4 Walk 50 ft with 2 Turns(QC): 4 Walk 150 ft (QC): 4 Gait Level of Assist: 4 Gait Persons Needed: 1 Gait Assistive Device: Walker Lior Wheelchair Training Does the Pt Use a Wheelchair?: No Wheelchair (FIM): 5 Wheelchair Distance: 3=150 ft Distance: 150' Wheelchair Level of Assist: 5 Wheel 50 ft with 2 turns (QC): 4 Wheel 150 ft (QC): 4 Type of Wheelchair: Manual Mental Status/Objective Comprehension: 7 Expression: 7 Social Interaction: 7 Problem Solvin Memory: 7 ADL-Treatment Feedin (Pt able to open containers/packages then use regular utensils to eat.) Eating (QC): 6 Groomin (Sitting in w/c at sink to complete own grooming.) Oral Hygiene (QC): 6 Bathin (Using grabbar, hand held shower and shower bench. Pt leaned side to side to cleanse buttocks. SBA for safety. Assist to dry underarms.) Bathing Location: L Arm, R Arm, L Upper Leg, R Upper Leg, L Lower Leg ( including foot), R Lower Leg (including foot), Chest, Abdomen, Buttocks, Perineal Area Shower/Bathe Self (QC): 3 Upper Extremity Dressin (Pt continues to need cues for one handed technique with dressing. Assist to thread R UE into sleeve then able to complete L and over head. Assist to pull down back.) Upper Body Dressing (QC): 2 Lower Extremity Dressin (Assist to keep R LE over L LE to don clothing. Pt able to complete threading LE's. CGA in standing while pt hikes pants over hips. Assist to don socks/shoes. Pt doffs with CGA.) Lower Body Dressing (QC): 2 On/Off Footwear (QC): 2 Toiletin (Assist to cleanse after BM. Assist in stand to manipulate clothing.) Toileting Hygiene (QC): 3 Toilet/Commode Transfer: 4 (Min A using grabbars and w/c.) Toilet Transfer (QC): 3 Shower: 4 (Min A using shower bench, grabbar and w/c.) Assessment/Plan Assessment and Plan Assess & Plan/Chief Complaint Assessment: CVA w/right sided weakness Dysarthria Incontinence urinary Constipation-resolved 09/11/18 Smoker HLP Edema mild Plan: IRF protocols BM regimen Smoking cessation Fall risk prevention Monitor BP Urinary continence training Baclofen for spastic muscles Psych consult reviewed and will increase dose of Celexa to 20mg Disability papers per SW Maintain increased Celexa to 20mg daily HCTZ 12.5mg po daily (1) CVA (cerebral vascular accident) (2) Constipation (3) Dysarthria (4) Depression (5) Grief reaction (6) Hyperlipidemia (7) Incontinence of urine (8) Right sided weakness (9) Smoker (10) Spasticity as late effect of cerebrovascular accident (CVA) (11) Risk for falls (12) Taste impairment MILLY KING DO September 21, 2018 08:32
[2018-09-21] MEDS: HYDROCHLOROTHIAZIDE 12.5 MG (HCTZ) CAP PO SCH (09:27)
[2018-09-21] MEDS: CLOPIDOGREL 75 MG (PLAVIX) TABLET PO SCH (09:27)
[2018-09-21] MEDS: lisINopril 20 MG (PRINIVIL) TABLET PO SCH (09:27)
--- NOTE | 2018-09-21 10:43 | Physical Therapy Daily Note ---
PT Daily Note-Current Subjective Pt sitting in recliner upon arrival. Pt agrees to PT. Mental Status Patient Orientation: Person, Place, Time, Situation Attachments: Other-See Comments (AFO for RLE) Transfers Therapy Code Descriptions/Definitions Functional [place] Measure: 0=Not Assessed/NA 4=Minimal Assistance 1=Total Assistance 5=Supervision or Setup 2=Maximal Assistance 6=Modified [place] 3=Moderate Assistance 7=Complete [place] Therapy Quality Codes: 6 Independent with activity with or without an assistive device 5 Patient requires set up or clean up by helper. Patient completes activity by themselves 4 Supervision or touching assist (CGA). [place] provide cues , steadying assist 3 The helper provides less than half the effort to complete the activity 2 The helper provides more than half the effort to complete the activity 1 Dependent. The helper does all the effort to complete an activity 7 Patient refused to complete or attempt activity 9 The patient did not perform the activity before the current illness or injury 88 Not attempted due to Medical conditions or safety concerns Scootin Sit to/from Stand: 4 Sit to Stand (QC): 4 Weight Bearing Right Lower Extremity: Right Weight Bearing/Tolerated Gait Training Does the Patient Walk?: Yes Gait (FIM): 3 Distance (FIM): 3=150 ft Distance: 150' Walk 10 feet (QC): 4 Walk 50 ft with 2 Turns(QC): 3 Walk 150 ft (QC): 3 Gait Level of Assist: 3 Gait Persons Needed: 1 Gait Assistive Device: Walker Lior Wheelchair Training Does the Pt Use a Wheelchair?: No Exercises Seated Therapy Exercises: Ankle pumps, Long arc quads, Hip flexion, Kicking activity, Glut set Seated Reps: 15 NuStep Minutes: 13 NuStep Workload: 4 Treatments Pt transfers from recliner to standing and ambulates in hallway. Pt uses NuStep for 13m at WL 4 followed by Seated Ex before short RB. Pt then ambulates in hallway to room. Pt uses BSC instead of restroom due to fatigue before transferring to recliner to rest. Pt has all needs met. Assessment Current Status: Good Progress Pt tolerates tx well but is fatigued by end of tx. As pt fatigues, she needs more VC to cotton picker R foot to prevent dragging during ambulation. PT Short Term Goals Short Term Goals Time Frame: September 17, 2018 Gait (FIM): 1 Gait Distance Comment: 20' Gait Level of Assist: 3 Gait Assistive Device: Walker Lior Wheelchair Distance: 150' PT Router Setter Goals Router Setter Goals PT [facility] Goals Time Frame: October 01, 2018 Transfers (B,C,W/C) (FIM): 4 Sit to Lying (QC): 4 Lying-Sitting on Side/Bed(QC): 4 Sit to Stand (QC): 4 Rollin Roll Left to Right (QC): 4 Chair/Exr-gn-Wqesi Xfer(QC): 4 Car Transfer (QC): 4 Gait (FIM): 1 Distance: 40' Walk 10 feet (QC): 3 Walk 10ft-Uneven Surface(QC): 3 Gait Level of Assist: 4 Gait Assistive Device: Walker Lior Stairs (FIM): 1 # of Steps: 1 1 Step (curb) (QC): 3 Stairs Level Of Assist: 4 PT Plan Problem List Problem List: Activity Tolerance, Functional Strength, Safety, Balance, Gait Treatment/Plan Treatment Plan: Continue Plan of Care Treatment Plan: Bed Mobility, Concurrent Therapy, Education, Functional Activity Linda, Functional Strength, Group Therapy, Gait, Safety, Therapeutic Exercise, Transfers Treatment Duration: October 01, 2018 Frequency: At least 5 of 7 days/Wk (IRF) Estimated Hrs Per Day: 1.5 hours per day Patient and/or Family Agrees t: Yes Safety Risks/Education Patient Education: Gait Training, Transfer Techniques, Correct Positioning, Safety Issues Teaching Recipient: Patient Teaching Methods: Discussion Response to Teaching: Verbalize Understanding Time/GCodes Time In: 1000 Time Out: 1100 Total Billed Treatment Time: 60 Total Billed Treatment 1, GT (20m), FA (10m) & EX x2 (30m) G Codes Necessary: LISA Mendoza RANGE MECHANIC September 21, 2018 10:43
--- NOTE | 2018-09-21 12:42 | Occupational Ther Daily Note ---
OT Current Status-Daily Note Subjective Pt in bed, agrees to treatment. Pt denies pain, but states she is "uncomfortable " Mental Status/Objective Therapy Code Descriptions/Definitions Functional [place] Measure: 0=Not Assessed/NA 4=Minimal Assistance 1=Total Assistance 5=Supervision or Setup 2=Maximal Assistance 6=Modified [place] 3=Moderate Assistance 7=Complete [place] ADL-Treatment Pt supine to sit with increased time. Transfer to w/c with CGA to left side. Pt declined shower, but would like sponge bath and to change clothes. Pt propelled w/c to restroom with SBA. Sponge bath completed seated at sink. Pt doffed shirt with verbal cues for technique. Pt required assist to wash left UE, but able to wash other upper body areas. Don pullover shirt with minimal assistance and skilled cues for technique. Pt declined to change bra at this time. Pt doffed pants with minimal assistance. Bathed lower body with min assist for balance. Pt able to thread LE into underwear and pant legs with minimal assistance for right LE. Stood with CGA for balance during pant hike. Pt required assist to pull pants up over right hip. Toilet transfer completed with minimal assistance. Pt able to pull pants down and complete toileting hygiene, but requires assist for pant hike. Grooming tasks completed seated at sink. Pt brushed teeth and combed hair with modified independence, but required assist to braid hair. Increased time for ADL tasks. Transfer to recliner chair with minimal assistance. PROM completed right UE x10 reps at all joints. No c/o pain during ROM. Pt sitting in chair with needs met after session. Therapy Code Descriptions/Definitions Functional [place] Measure: 0=Not Assessed/NA 4=Minimal Assistance 1=Total Assistance 5=Supervision or Setup 2=Maximal Assistance 6=Modified [place] 3=Moderate Assistance 7=Complete [place] Therapy Quality Codes: 6 Independent with activity with or without an assistive device 5 Patient requires set up or clean up by helper. Patient completes activity by themselves 4 Supervision or touching assist (CGA). [place] provide cues , steadying assist 3 The helper provides less than half the effort to complete the activity 2 The helper provides more than half the effort to complete the activity 1 Dependent. The helper does all the effort to complete an activity 7 Patient refused to complete or attempt activity 9 The patient did not perform the activity before the current illness or injury 88 Not attempted due to Medical conditions or safety concerns Grooming (FIM): 4 Oral Hygiene (QC): 6 Bathing (FIM): 4 Upper Body (FIM): 4 Upper Body Dressing (QC): 3 Lower Body Dressing (FIM): 3 Lower Body Dressing (QC): 3 Toileting (FIM): 3 Toileting Hygiene (QC): 3 Toilet/Commode Transfer (FIM): 4 Toilet Transfer (QC): 3 OT Short Term Goals Short Term Goals Time Frame: September 17, 2018 Bathing(FIM): 4 Upper Body Dressing(FIM): 3 Lower Body Dressing(FIM): 3 Toileting(FIM): 3 Toilet/Commode Transfer(FIM): 4 Additional Short Term Goals: 2-Verbalize Understanding, 3-ImproveStrength/Linda 1=Demonstrate adherence to instructed precautions during ADL tasks. 2=Patient will verbalize/demonstrate understanding of assistive devices/ modifications for ADL. 3=Patient will improve strength/tolerance for activity to enable patient to perform ADL's. OT Retirement Goals Retirement Goals Time Frame: October 01, 2018 Eating (FIM): 6 Eating (QC): 6 Groomin Oral Hygiene (QC): 6 Bathing(FIM): 5 Shower/Bathe Self (QC): 4 Upper Body Dressing(FIM): 5 Upper Body Dressing (QC): 5 Lower Body Dressing(FIM): 4 Lower Body Dressing (QC): 4 On/Off Footwear (QC): 4 Toileting(FIM): 5 Toileting Hygiene (QC): 4 Toilet/Commode Transfer(FIM): 5 Toilet/Commode Transfer (QC): 5 Shower Transfer(FIM): 5 Additional Goals: 2-Verbalize Understanding, 3-ImproveStrength/Linda 1=Demonstrate adherence to instructed precautions during ADL tasks. 2=Patient will verbalize/demonstrate understanding of assistive devices/ modifications for ADL. 3=Patient will improve strength/tolerance for activity to enable patient to perform ADL's. OT Education/Plan Discharge Recommendations Plan/Recommendations: Continue POC Treatment Plan/Plan of Care Patient would benefit from OT for education, treatment and training to promote independence in ADL's, mobility, safety and/or upper extremity function for ADL' s. Plan of Care: ADL Retraining, Functional Mobility, Group Exercise/Act as Ind, UE Funct Exercise/Act, UE Neuromus Re-Ed/Coord Treatment Duration: October 01, 2018 Frequency: At least 5 of 7 days/Wk (IRF) Estimated Hrs Per Day: 1.5 hours per day Rehab Potential: Fair Time/GCodes Start Time: 08:00 Stop Time: 09:30 Total Time Billed (hr/min): 90 Billed Treatment Time 1 visit, ADLx5(75minutes), EX(15minutes) EVENS MARKS OT September 21, 2018 12:42
--- NOTE | 2018-09-21 15:34 | Physical Therapy Daily Note ---
PT Daily Note-Current Subjective Pt sitting up in recliner upon arrival. Pt agrees to PT but reports feeling a little fatigued this afternoon. Mental Status Patient Orientation: Person, Place, Time, Situation Attachments: Other-See Comments (AFO for RLE) Transfers Therapy Code Descriptions/Definitions Functional [place] Measure: 0=Not Assessed/NA 4=Minimal Assistance 1=Total Assistance 5=Supervision or Setup 2=Maximal Assistance 6=Modified [place] 3=Moderate Assistance 7=Complete [place] Therapy Quality Codes: 6 Independent with activity with or without an assistive device 5 Patient requires set up or clean up by helper. Patient completes activity by themselves 4 Supervision or touching assist (CGA). [place] provide cues , steadying assist 3 The helper provides less than half the effort to complete the activity 2 The helper provides more than half the effort to complete the activity 1 Dependent. The helper does all the effort to complete an activity 7 Patient refused to complete or attempt activity 9 The patient did not perform the activity before the current illness or injury 88 Not attempted due to Medical conditions or safety concerns Scootin Sit to/from Stand: 4 Sit to Stand (QC): 4 Weight Bearing Right Lower Extremity: Right Weight Bearing/Tolerated Gait Training Does the Patient Walk?: Yes Gait (FIM): 3 Distance (FIM): 4=692-80 ft Distance: 100' Walk 10 feet (QC): 4 Walk 50 ft with 2 Turns(QC): 3 Gait Level of Assist: 3 Gait Persons Needed: 1 Gait Assistive Device: Walker Lior Pt fatigues toward end of walk and requires more assistance/VC for sequencing. Wheelchair Training Does the Pt Use a Wheelchair?: No Exercises Seated Therapy Exercises: Ankle pumps, Long arc quads, Hip flexion, Kicking activity Seated Reps: 15 Treatments Pt completes Seated EX then RB. Pt transfers to standing and ambulates to car for transfer practice. Pt returns to room to rest in recliner with all needs met. Assessment Current Status: Good Progress Pt tolerates tx well, improving each day with activity tolerance and balance but still fatigues with increased mobility. PT Short Term Goals Short Term Goals Time Frame: September 17, 2018 Gait (FIM): 1 Gait Distance Comment: 20' Gait Level of Assist: 3 Gait Assistive Device: Walker Lior Wheelchair Distance: 150' PT Care Home Goals Care Home Goals PT Care Home Goals Time Frame: October 01, 2018 Transfers (B,C,W/C) (FIM): 4 Sit to Lying (QC): 4 Lying-Sitting on Side/Bed(QC): 4 Sit to Stand (QC): 4 Rollin Roll Left to Right (QC): 4 Chair/Dex-ms-Mrkpz Xfer(QC): 4 Car Transfer (QC): 4 Gait (FIM): 1 Distance: 40' Walk 10 feet (QC): 3 Walk 10ft-Uneven Surface(QC): 3 Gait Level of Assist: 4 Gait Assistive Device: Walker Lior Stairs (FIM): 1 # of Steps: 1 1 Step (curb) (QC): 3 Stairs Level Of Assist: 4 PT Plan Problem List Problem List: Activity Tolerance, Functional Strength, Safety, Balance, Gait Treatment/Plan Treatment Plan: Continue Plan of Care Treatment Plan: Bed Mobility, Concurrent Therapy, Education, Functional Activity Linda, Functional Strength, Group Therapy, Gait, Safety, Therapeutic Exercise, Transfers Treatment Duration: October 01, 2018 Frequency: At least 5 of 7 days/Wk (IRF) Estimated Hrs Per Day: 1.5 hours per day Patient and/or Family Agrees t: Yes Safety Risks/Education Patient Education: Gait Training, Transfer Techniques, Correct Positioning, Safety Issues Teaching Recipient: Patient Teaching Methods: Discussion Response to Teaching: Verbalize Understanding Time/GCodes Time In: 1400 Time Out: 1430 Total Billed Treatment Time: 30 Total Billed Treatment 1, GT (15m) & FA (15m) G Codes Necessary: LISA Mendoza CHANCERY CLERK September 21, 2018 15:34
[2018-09-21 18:00] VITALS: BP 144/83
[2018-09-21] MEDS: BACLOFEN 10 MG (LIORESAL) TAB PO PRN (21:44)
[2018-09-21] MEDS: ATORVASTATIN 80 MG (LIPITOR) TABLET PO SCH (21:44)
[2018-09-22 06:12] VITALS: BP 148/81
--- NOTE | 2018-09-22 08:23 | PM&R Progress Note ---
Subjective HPI/CC On Admission Date Seen by Provider: September 22, 2018 Time Seen by Provider: 08:30 CC: CVA w/right sided weakness HPI: This is a 57yoWF clinic patient of Dr Guajardo at his [place] clinic who presented to the [facility] ER w/abrupt onset right sided deficit with dysarthria. tPA was administered and patient was then transferred to [facility] for neurological services. 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 No dysphagia was noted during acute care stay but dysarthria remains with word searching processes. She is in good spirits on Celexa per protocol. Constipation is resolving at time of DC. No pain is reported. Patient worked at a [employer] center prior to the CVA and is to a spouse who is disabled. Smoking cessation counseled. Patient was placed on statin therapy and Plavix was added to regimen with no side effects. 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 Subjective/Events-last exam Patient really motivated and working hard Stocking ordered to prevent AFO brace from rubbing on the right leg No pain is reported Regaining more function every day Reviewed meds Conferred with RN. Reviewed therapy notes. Review of Systems General: Fatigue Neurological: Weakness, Numbness, Incoordination Objective Exam Vital Signs Vital Signs Date Time Temp Pulse Resp B/P (MAP) Pulse Ox O2 Delivery O2 Flow Rate FiO2 09/22/18 06:12 98.3 62 16 148/81 (103) 94 Room Air Capillary Refill : Less Than 3 Seconds General Appearance: No Apparent Distress, WD/WN, Chronically ill HEENT: PERRL/EOMI, Normal ENT Inspection, Pharynx Normal, Moist Mucous Membranes Neck: Full Range of Motion, Normal Inspection, Non Tender, Supple Respiratory: Chest Non Tender, Lungs Clear, Normal Breath Sounds, No Accessory Muscle Use, No Respiratory Distress Cardiovascular: Regular Rate, Rhythm, No Edema, No Gallop, No JVD, No Murmur Gastrointestinal: Normal Bowel Sounds, No Organomegaly, No Pulsatile Mass, Non Tender, Soft Back: Normal Inspection, No CVA Tenderness, No Vertebral Tenderness Extremity: Normal Capillary Refill, Normal Inspection, Normal Range of Motion, Non Tender, No Calf Tenderness, No Pedal Edema Neurologic/Psychiatric: Alert, Oriented x3, Abnormal Cerebellar Tests, Abnormal Gait, Depressed Affect, Motor Weakness, Other Skin: Normal Color, Warm/Dry Lymphatic: No Adenopathy Results/Procedures Lab Patient resulted labs reviewed. FIM Transfers Therapy Code Descriptions/Definitions Functional [place] Measure: 0=Not Assessed/NA 4=Minimal Assistance 1=Total Assistance 5=Supervision or Setup 2=Maximal Assistance 6=Modified [place] 3=Moderate Assistance 7=Complete [place] Therapy Quality Codes: 6 Independent with activity with or without an assistive device 5 Patient requires set up or clean up by helper. Patient completes activity by themselves 4 Supervision or touching assist (CGA). [place] provide cues , steadying assist 3 The helper provides less than half the effort to complete the activity 2 The helper provides more than half the effort to complete the activity 1 Dependent. The helper does all the effort to complete an activity 7 Patient refused to complete or attempt activity 9 The patient did not perform the activity before the current illness or injury 88 Not attempted due to Medical conditions or safety concerns Transfers (B, C, W/C) (FIM): 4 Scootin Rollin Roll Left to Right (QC): 4 Supine to/from Sit: 5 Sit to/from Stand: 4 Sit to Lying (QC): 3 Sit to Stand (QC): 4 Chair/Paj-yq-Vqwdy Xfer(QC): 2 Bed to/from Chair: 4 Car Transfer (QC): 2 Gait Training Does the Patient Walk?: Yes Gait (FIM): 3 Distance (FIM): 2=656-59 ft Distance: 100' Walk 10 feet (QC): 4 Walk 50 ft with 2 Turns(QC): 3 Walk 150 ft (QC): 3 Gait Level of Assist: 3 Gait Persons Needed: 1 Gait Assistive Device: Walker Lior Wheelchair Training Does the Pt Use a Wheelchair?: No Wheelchair (FIM): 5 Wheelchair Distance: 3=150 ft Distance: 150' Wheelchair Level of Assist: 5 Wheel 50 ft with 2 turns (QC): 4 Wheel 150 ft (QC): 4 Type of Wheelchair: Manual Mental Status/Objective Comprehension: 7 Expression: 7 Social Interaction: 7 Problem Solvin Memory: 7 ADL-Treatment Feedin (Pt able to open containers/packages then use regular utensils to eat.) Eating (QC): 6 Groomin Oral Hygiene (QC): 6 Bathin Bathing Location: L Arm, R Arm, L Upper Leg, R Upper Leg, L Lower Leg ( including foot), R Lower Leg (including foot), Chest, Abdomen, Buttocks, Perineal Area Shower/Bathe Self (QC): 3 Upper Extremity Dressin Upper Body Dressing (QC): 3 Lower Extremity Dressin Lower Body Dressing (QC): 3 On/Off Footwear (QC): 2 Toiletin Toileting Hygiene (QC): 3 Toilet/Commode Transfer: 4 Toilet Transfer (QC): 3 Shower: 4 (Min A using shower bench, grabbar and w/c.) Assessment/Plan Assessment and Plan Assess & Plan/Chief Complaint Assessment: CVA w/right sided weakness Dysarthria Incontinence urinary Constipation-resolved 09/11/18 Smoker HLP Edema mild Plan: IRF protocols BM regimen Smoking cessation Fall risk prevention Monitor BP Urinary continence training Baclofen for spastic muscles Psych consult reviewed and appreciated Disability papers per SW Maintain increased Celexa to 20mg daily HCTZ 12.5mg po daily to be maintained (1) CVA (cerebral vascular accident) (2) Constipation (3) Dysarthria (4) Depression (5) Grief reaction (6) Hyperlipidemia (7) Incontinence of urine (8) Right sided weakness (9) Smoker (10) Spasticity as late effect of cerebrovascular accident (CVA) (11) Risk for falls (12) Taste impairment MILLY KING DO September 22, 2018 08:23
[2018-09-22] MEDS: HYDROCHLOROTHIAZIDE 12.5 MG (HCTZ) CAP PO SCH (08:41)
[2018-09-22] MEDS: DOCUSATE SODIUM 100 MG (COLACE) CAP PO SCH ×2 (08:41→20:19)
[2018-09-22] MEDS: BACLOFEN 10 MG (LIORESAL) TAB PO PRN ×2 (08:41→20:22)
[2018-09-22] MEDS: lisINopril 20 MG (PRINIVIL) TABLET PO SCH (08:41)
[2018-09-22] MEDS: SENNA W/DOCUSATE (SENOKOT S) TABLET PO SCH ×2 (08:41→20:19)
[2018-09-22] MEDS: POLYETHYLENE GLYCOL 17 GM (MIRALAX) PACK PO SCH ×2 (08:41→08:44)
[2018-09-22] MEDS: CLOPIDOGREL 75 MG (PLAVIX) TABLET PO SCH (08:41)
--- NOTE | 2018-09-22 09:34 | Occupational Ther Daily Note ---
OT Current Status-Daily Note Subjective Pt alert, sitting in recliner. Pt agrees to therapy. No c/o pain at this time. Mental Status/Objective Patient Orientation: Person, Place, Time, Situation Therapy Code Descriptions/Definitions Functional [place] Measure: 0=Not Assessed/NA 4=Minimal Assistance 1=Total Assistance 5=Supervision or Setup 2=Maximal Assistance 6=Modified [place] 3=Moderate Assistance 7=Complete [place] ADL-Treatment Pt declined shower today. Pt agrees to sponge bath and changing clothing. Pt ambulated with min A/CGA to bathroom. Transferred to toilet with min A using hemiwalker and grabbar. Completed hygiene with CGA. Pt ambulated to sink and sat in w/c to complete sponge bath, grooming and dressing. Mod I for grooming. Supervision for sponge bath after set up. Mod A for upper body dressing and lower body dressing. Assist to place R LE over L knee then pt able to don pants and underpants. Min A in standing while pt hiked pants over hips. Assist to don socks/shoes. Therapy Code Descriptions/Definitions Functional [place] Measure: 0=Not Assessed/NA 4=Minimal Assistance 1=Total Assistance 5=Supervision or Setup 2=Maximal Assistance 6=Modified [place] 3=Moderate Assistance 7=Complete [place] Therapy Quality Codes: 6 Independent with activity with or without an assistive device 5 Patient requires set up or clean up by helper. Patient completes activity by themselves 4 Supervision or touching assist (CGA). [place] provide cues , steadying assist 3 The helper provides less than half the effort to complete the activity 2 The helper provides more than half the effort to complete the activity 1 Dependent. The helper does all the effort to complete an activity 7 Patient refused to complete or attempt activity 9 The patient did not perform the activity before the current illness or injury 88 Not attempted due to Medical conditions or safety concerns Grooming (FIM): 6 Oral Hygiene (QC): 6 Upper Body (FIM): 3 Upper Body Dressing (QC): 3 Lower Body Dressing (FIM): 3 Lower Body Dressing (QC): 3 On/Off Footwear (QC): 2 Toileting (FIM): 4 Toileting Hygiene (QC): 4 Transfers (B, C, W/C) (FIM): 4 Toilet/Commode Transfer (FIM): 4 Toilet Transfer (QC): 4 Other Treatment Completed R UE AROM/AAROM. Increased movement noted throughout R UE. Subluxation of R shldr still apparent though when ambulating, subluxation decreases due to pt's increased of active shldr elevation. After therapy, pt sitting in recliner with call light/phone in reach. All needs met in room. OT Short Term Goals Short Term Goals Time Frame: September 17, 2018 Bathing(FIM): 4 Upper Body Dressing(FIM): 3 Lower Body Dressing(FIM): 3 Toileting(FIM): 3 Toilet/Commode Transfer(FIM): 4 Additional Short Term Goals: 2-Verbalize Understanding, 3-ImproveStrength/Linda 1=Demonstrate adherence to instructed precautions during ADL tasks. 2=Patient will verbalize/demonstrate understanding of assistive devices/ modifications for ADL. 3=Patient will improve strength/tolerance for activity to enable patient to perform ADL's. OT Manager Long Term Care Goals Shelter Goals Time Frame: October 01, 2018 Eating (FIM): 6 Eating (QC): 6 Groomin Oral Hygiene (QC): 6 Bathing(FIM): 5 Shower/Bathe Self (QC): 4 Upper Body Dressing(FIM): 5 Upper Body Dressing (QC): 5 Lower Body Dressing(FIM): 4 Lower Body Dressing (QC): 4 On/Off Footwear (QC): 4 Toileting(FIM): 5 Toileting Hygiene (QC): 4 Toilet/Commode Transfer(FIM): 5 Toilet/Commode Transfer (QC): 5 Shower Transfer(FIM): 5 Additional Goals: 2-Verbalize Understanding, 3-ImproveStrength/Linda 1=Demonstrate adherence to instructed precautions during ADL tasks. 2=Patient will verbalize/demonstrate understanding of assistive devices/ modifications for ADL. 3=Patient will improve strength/tolerance for activity to enable patient to perform ADL's. OT Education/Plan Problem List/Assessment Assessment: Impaired Coordination, Impaired Funct Balance, Impaired Self-Care Skills, Restricted Funct UE ROM Discharge Recommendations Plan/Recommendations: Continue POC Treatment Plan/Plan of Care Patient would benefit from OT for education, treatment and training to promote independence in ADL's, mobility, safety and/or upper extremity function for ADL' s. Plan of Care: ADL Retraining, Functional Mobility, Group Exercise/Act as Ind, UE Funct Exercise/Act, UE Neuromus Re-Ed/Coord Treatment Duration: October 01, 2018 Frequency: At least 5 of 7 days/Wk (IRF) Estimated Hrs Per Day: 1.5 hours per day Rehab Potential: Fair Time/GCodes Start Time: 09:15 Stop Time: 10:45 Total Time Billed (hr/min): 90 Billed Treatment Time 1 visit-ADL 4 (60 min) NM 2 (30 min) TJ PURDY September 22, 2018 09:34
--- NOTE | 2018-09-22 10:15 | Physical Therapy Daily Note ---
PT Daily Note-Current Subjective Pt sitting up in recliner upon arrival. Pt agrees to PT. Pt reports sleeping a little better. Mental Status Patient Orientation: Person, Place, Time, Situation Attachments: Other-See Comments (AFO for R LE ) Transfers Therapy Code Descriptions/Definitions Functional [place] Measure: 0=Not Assessed/NA 4=Minimal Assistance 1=Total Assistance 5=Supervision or Setup 2=Maximal Assistance 6=Modified [place] 3=Moderate Assistance 7=Complete [place] Therapy Quality Codes: 6 Independent with activity with or without an assistive device 5 Patient requires set up or clean up by helper. Patient completes activity by themselves 4 Supervision or touching assist (CGA). [place] provide cues , steadying assist 3 The helper provides less than half the effort to complete the activity 2 The helper provides more than half the effort to complete the activity 1 Dependent. The helper does all the effort to complete an activity 7 Patient refused to complete or attempt activity 9 The patient did not perform the activity before the current illness or injury 88 Not attempted due to Medical conditions or safety concerns Scootin Sit to/from Stand: 5 Sit to Stand (QC): 5 Weight Bearing Right Lower Extremity: Right Weight Bearing/Tolerated Gait Training Does the Patient Walk?: Yes Gait (FIM): 4 Distance (FIM): 3=150 ft Distance: 150' Walk 10 feet (QC): 4 Walk 50 ft with 2 Turns(QC): 4 Walk 150 ft (QC): 4 Gait Level of Assist: 4 Gait Persons Needed: 1 Gait Assistive Device: Walker Lior Wheelchair Training Does the Pt Use a Wheelchair?: No Exercises NuStep Minutes: 15 NuStep Workload: 4 Treatments Pt aides GAMBLING MONITOR in donning AFO for R LE and shoes for tx. Pt transfers from recliner to standing and ambulates in hallway with assistance from GAMBLING MONITOR. Pt uses NuStep for 15m at WL 4. Pt ambulates in hallway again on way back to room to rest. Pt rests at end of tx with all needs met. Assessment Current Status: Good Progress Pt still fatigues after ambulation. Pt at times needs extended RB. Pt has difficulty aiding with donning AFO. PT Short Term Goals Short Term Goals Time Frame: September 17, 2018 Gait (FIM): 1 Gait Distance Comment: 20' Gait Level of Assist: 3 Gait Assistive Device: Walker Lior Wheelchair Distance: 150' PT Pharmacy Scheduler Goals Pharmacy Scheduler Goals PT Care Home Goals Time Frame: October 01, 2018 Transfers (B,C,W/C) (FIM): 4 Sit to Lying (QC): 4 Lying-Sitting on Side/Bed(QC): 4 Sit to Stand (QC): 4 Rollin Roll Left to Right (QC): 4 Chair/Zcg-wm-Jeqpj Xfer(QC): 4 Car Transfer (QC): 4 Gait (FIM): 1 Distance: 40' Walk 10 feet (QC): 3 Walk 10ft-Uneven Surface(QC): 3 Gait Level of Assist: 4 Gait Assistive Device: Walker Lior Stairs (FIM): 1 # of Steps: 1 1 Step (curb) (QC): 3 Stairs Level Of Assist: 4 PT Plan Problem List Problem List: Activity Tolerance, Functional Strength, Balance, Gait Treatment/Plan Treatment Plan: Continue Plan of Care Treatment Plan: Bed Mobility, Concurrent Therapy, Education, Functional Activity Linda, Functional Strength, Group Therapy, Gait, Safety, Therapeutic Exercise, Transfers Treatment Duration: October 01, 2018 Frequency: At least 5 of 7 days/Wk (IRF) Estimated Hrs Per Day: 1.5 hours per day Patient and/or Family Agrees t: Yes Safety Risks/Education Patient Education: Gait Training, Transfer Techniques, Correct Positioning, Safety Issues Teaching Recipient: Patient Teaching Methods: Discussion Response to Teaching: Verbalize Understanding Time/GCodes Time In: 815 Time Out: 915 Total Billed Treatment Time: 60 Total Billed Treatment 1, GT (20m), FA x2 (25m) & EX (15m) G Codes Necessary: LISA Mendoza GAMBLING MONITOR September 22, 2018 10:15
--- NOTE | 2018-09-22 10:40 | NUR ---
Pastoral care visit, pt processed much in regards to her daughters and her grieving, provided support and comfort
--- NOTE | 2018-09-22 11:53 | NUR ---
DIETITIAN received contact from patient's insurance provider requesting clinical information today, rather than tomorrow. DIETITIAN faxed update and will send Team Conference Summary following meeting.
--- NOTE | 2018-09-22 15:23 | Physical Therapy Daily Note ---
PT Daily Note-Current Subjective Pt sitting in recliner upon arrival. Pt agrees to PT. Pt reports AFO is rubbing as she wears it later in day due to swelling at that point. Nurse and Dr have been notified of need for Compression garment. Pain Numeric Pain Scale: 5-Moderate Pain Location: Right Location Body Site: Calf Pain Description: Ache Mental Status Patient Orientation: Person, Place, Time, Situation Attachments: Other-See Comments (AFO for R LE) Transfers Therapy Code Descriptions/Definitions Functional [place] Measure: 0=Not Assessed/NA 4=Minimal Assistance 1=Total Assistance 5=Supervision or Setup 2=Maximal Assistance 6=Modified [place] 3=Moderate Assistance 7=Complete [place] Therapy Quality Codes: 6 Independent with activity with or without an assistive device 5 Patient requires set up or clean up by helper. Patient completes activity by themselves 4 Supervision or touching assist (CGA). [place] provide cues , steadying assist 3 The helper provides less than half the effort to complete the activity 2 The helper provides more than half the effort to complete the activity 1 Dependent. The helper does all the effort to complete an activity 7 Patient refused to complete or attempt activity 9 The patient did not perform the activity before the current illness or injury 88 Not attempted due to Medical conditions or safety concerns Scootin Sit to/from Stand: 5 Sit to Stand (QC): 5 Weight Bearing Right Lower Extremity: Right Weight Bearing/Tolerated Gait Training Does the Patient Walk?: Yes Gait (FIM): 2 Distance (FIM): 1=up to 49 ft Distance: 25' Walk 10 feet (QC): 4 Gait Level of Assist: 4 Gait Persons Needed: 1 Gait Assistive Device: Walker Lior Wheelchair Training Does the Pt Use a Wheelchair?: No Exercises Seated Therapy Exercises: Ankle pumps, Long arc quads, Hip flexion, Kicking activity, Hip abd/add Seated Reps: 15 Treatments Pt transfers from recliner to standing to use restroom. After this is completed, pt returns to recliner and completes Seated EX until clothes are done in dryer. Pt resting at end of tx. CIGAR MACHINE FEEDER returns with clothes and assists pt with folding. Pt has all needs met at end of tx. Assessment Current Status: Good Progress Pt fatigues more in afternoon tx. PT Short Term Goals Short Term Goals Time Frame: September 17, 2018 Gait (FIM): 1 Gait Distance Comment: 20' Gait Level of Assist: 3 Gait Assistive Device: Walker Lior Wheelchair Distance: 150' PT Teacher Dancing Goals Fpc Goals PT Fpc Goals Time Frame: October 01, 2018 Transfers (B,C,W/C) (FIM): 4 Sit to Lying (QC): 4 Lying-Sitting on Side/Bed(QC): 4 Sit to Stand (QC): 4 Rollin Roll Left to Right (QC): 4 Chair/Bie-vj-Tizzc Xfer(QC): 4 Car Transfer (QC): 4 Gait (FIM): 1 Distance: 40' Walk 10 feet (QC): 3 Walk 10ft-Uneven Surface(QC): 3 Gait Level of Assist: 4 Gait Assistive Device: Walker Lior Stairs (FIM): 1 # of Steps: 1 1 Step (curb) (QC): 3 Stairs Level Of Assist: 4 PT Plan Problem List Problem List: Activity Tolerance, Functional Strength, Safety, Balance, Gait Treatment/Plan Treatment Plan: Continue Plan of Care Treatment Plan: Bed Mobility, Concurrent Therapy, Education, Functional Activity Linda, Functional Strength, Group Therapy, Gait, Safety, Therapeutic Exercise, Transfers Treatment Duration: October 01, 2018 Frequency: At least 5 of 7 days/Wk (IRF) Estimated Hrs Per Day: 1.5 hours per day Patient and/or Family Agrees t: Yes Safety Risks/Education Patient Education: Gait Training, Transfer Techniques, Correct Positioning, Safety Issues Teaching Recipient: Patient Teaching Methods: Discussion Response to Teaching: Verbalize Understanding Time/GCodes Time In: 1400 Time Out: 1430 Total Billed Treatment Time: 30 Total Billed Treatment 1, FA x2 (30m) G Codes Necessary: LISA Mendoza CIGAR MACHINE FEEDER September 22, 2018 15:23
--- NOTE | 2018-09-22 16:00 | NUR ---
CATERING CHEF received notification from patient's insurance provider that she is only allotted 15 days per year of coverage for IP rehab; therefore, they will not approve additional days past 09/24. Prior to this knowledge, Team had recommended patient be re-evaluated at next team conference as she continues to require Min A for transfers, SBA for bathing and Mod A for ambulation. Due to lack of insurance coverage and patient's inability to provide financial responsibility for hospital bill post insurance coverage, patient would like to proceed with discharging to daughter's home on 09/24. This was the original discharge destination; however, Team was hopeful for patient to progress further prior to discharge. Family training will occur tomorrow and Thursday, 09/24 to ensure comfort with the assistance patient will need at home. Patient has ordered a lolita walker through [employer] for scheduled deliver on 09/24 and CATERING CHEF will obtained a wheelchair and cushion order from Dr. Banks. CATERING CHEF will meet with patient and family post family training.
[2018-09-22 18:24] VITALS: BP 127/82
[2018-09-22] MEDS: ATORVASTATIN 80 MG (LIPITOR) TABLET PO SCH (20:19)
[2018-09-23 04:18] VITALS: BP 116/67
[2018-09-23] MEDS: BACLOFEN 10 MG (LIORESAL) TAB PO PRN ×2 (05:50→20:49)
--- NOTE | 2018-09-23 08:00 | NUR ---
ADMITS TO FEELING NERVOUS ABOUT GOING HOME TOMORROW. NO OTHER COMPLAINTS.
--- NOTE | 2018-09-23 08:30 | PM&R Progress Note ---
Subjective HPI/CC On Admission Date Seen by Provider: September 23, 2018 Time Seen by Provider: 08:30 CC: CVA w/right sided weakness HPI: This is a 57yoWF clinic patient of Dr Guajardo at his [place] clinic who presented to the [facility] ER w/abrupt onset right sided deficit with dysarthria. tPA was administered and patient was then transferred to [facility] for neurological services. 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 No dysphagia was noted during acute care stay but dysarthria remains with word searching processes. She is in good spirits on Celexa per protocol. Constipation is resolving at time of DC. No pain is reported. Patient worked at a [employer] center prior to the CVA and is to a spouse who is disabled. Smoking cessation counseled. Patient was placed on statin therapy and Plavix was added to regimen with no side effects. 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 Subjective/Events-last exam Patient really motivated and working hard Stocking ordered to prevent AFO brace from rubbing on the right leg No pain is reported Regaining more function every day Reviewed meds Conferred with RN. Reviewed therapy notes. DC planned for tomorrow Family training today Review of Systems General: Fatigue Objective Exam Vital Signs Vital Signs Date Time Temp Pulse Resp B/P (MAP) Pulse Ox O2 Delivery O2 Flow Rate FiO2 09/23/18 04:18 98.9 61 16 116/67 (83) 94 Room Air Capillary Refill : Less Than 3 Seconds General Appearance: No Apparent Distress, WD/WN, Chronically ill HEENT: PERRL/EOMI, Normal ENT Inspection, Pharynx Normal, Moist Mucous Membranes Neck: Full Range of Motion, Normal Inspection, Non Tender, Supple Respiratory: Chest Non Tender, Lungs Clear, Normal Breath Sounds, No Accessory Muscle Use, No Respiratory Distress Cardiovascular: Regular Rate, Rhythm, No Edema, No Gallop, No JVD, No Murmur Gastrointestinal: Normal Bowel Sounds, No Organomegaly, No Pulsatile Mass, Non Tender, Soft Back: Normal Inspection, No CVA Tenderness, No Vertebral Tenderness Extremity: Normal Capillary Refill, Normal Inspection, Normal Range of Motion, Non Tender, No Calf Tenderness, No Pedal Edema Neurologic/Psychiatric: Alert, Oriented x3, Abnormal Cerebellar Tests, Abnormal Gait, Depressed Affect, Motor Weakness, Other Skin: Normal Color, Warm/Dry Lymphatic: No Adenopathy Results/Procedures Lab Patient resulted labs reviewed. FIM Transfers Therapy Code Descriptions/Definitions Functional [place] Measure: 0=Not Assessed/NA 4=Minimal Assistance 1=Total Assistance 5=Supervision or Setup 2=Maximal Assistance 6=Modified [place] 3=Moderate Assistance 7=Complete [place] Therapy Quality Codes: 6 Independent with activity with or without an assistive device 5 Patient requires set up or clean up by helper. Patient completes activity by themselves 4 Supervision or touching assist (CGA). [place] provide cues , steadying assist 3 The helper provides less than half the effort to complete the activity 2 The helper provides more than half the effort to complete the activity 1 Dependent. The helper does all the effort to complete an activity 7 Patient refused to complete or attempt activity 9 The patient did not perform the activity before the current illness or injury 88 Not attempted due to Medical conditions or safety concerns Transfers (B, C, W/C) (FIM): 4 Scootin Rollin Roll Left to Right (QC): 4 Supine to/from Sit: 5 Sit to/from Stand: 5 Sit to Lying (QC): 3 Sit to Stand (QC): 5 Chair/Qte-tk-Sxgff Xfer(QC): 2 Bed to/from Chair: 4 Car Transfer (QC): 2 Gait Training Does the Patient Walk?: Yes Gait (FIM): 2 Distance (FIM): 1=up to 49 ft Distance: 25' Walk 10 feet (QC): 4 Walk 50 ft with 2 Turns(QC): 4 Walk 150 ft (QC): 4 Gait Level of Assist: 4 Gait Persons Needed: 1 Gait Assistive Device: Walker Lior Wheelchair Training Does the Pt Use a Wheelchair?: No Wheelchair (FIM): 5 Wheelchair Distance: 3=150 ft Distance: 150' Wheelchair Level of Assist: 5 Wheel 50 ft with 2 turns (QC): 4 Wheel 150 ft (QC): 4 Type of Wheelchair: Manual Mental Status/Objective Comprehension: 7 Expression: 7 Social Interaction: 7 Problem Solvin Memory: 7 ADL-Treatment Feedin (Pt able to open containers/packages then use regular utensils to eat.) Eating (QC): 6 Groomin Oral Hygiene (QC): 6 Bathin Bathing Location: L Arm, R Arm, L Upper Leg, R Upper Leg, L Lower Leg ( including foot), R Lower Leg (including foot), Chest, Abdomen, Buttocks, Perineal Area Shower/Bathe Self (QC): 3 Upper Extremity Dressin Upper Body Dressing (QC): 3 Lower Extremity Dressin Lower Body Dressing (QC): 3 On/Off Footwear (QC): 2 Toiletin Toileting Hygiene (QC): 4 Toilet/Commode Transfer: 4 Toilet Transfer (QC): 4 Shower: 4 (Min A using shower bench, grabbar and w/c.) Assessment/Plan Assessment and Plan Assess & Plan/Chief Complaint Assessment: CVA w/right sided weakness Dysarthria Incontinence urinary Constipation-resolved 09/11/18 Smoker HLP Edema mild Plan: IRF protocols BM regimen Smoking cessation Fall risk prevention Monitor BP Urinary continence training Baclofen for spastic muscles Psych consult reviewed and appreciated Disability papers per SW Maintain increased Celexa to 20mg daily HCTZ 12.5mg po daily to be maintained DC planned for tomorrow (1) CVA (cerebral vascular accident) (2) Constipation (3) Dysarthria (4) Depression (5) Grief reaction (6) Hyperlipidemia (7) Incontinence of urine (8) Right sided weakness (9) Smoker (10) Spasticity as late effect of cerebrovascular accident (CVA) (11) Risk for falls (12) Taste impairment MILLY KING DO September 23, 2018 08:30
[2018-09-23] MEDS: HYDROCHLOROTHIAZIDE 12.5 MG (HCTZ) CAP PO SCH (09:15)
[2018-09-23] MEDS: CLOPIDOGREL 75 MG (PLAVIX) TABLET PO SCH (09:15)
[2018-09-23] MEDS: DOCUSATE SODIUM 100 MG (COLACE) CAP PO SCH ×2 (09:17→20:48)
[2018-09-23] MEDS: SENNA W/DOCUSATE (SENOKOT S) TABLET PO SCH ×2 (09:17→20:48)
[2018-09-23] MEDS: POLYETHYLENE GLYCOL 17 GM (MIRALAX) PACK PO SCH ×2 (09:17→20:48)
[2018-09-23] MEDS: lisINopril 20 MG (PRINIVIL) TABLET PO SCH (09:18)
--- NOTE | 2018-09-23 10:00 | NUR ---
FAMILY HERE TO DO HOME TEACHING.
--- NOTE | 2018-09-23 10:49 | Occupational Ther Daily Note ---
OT Current Status-Daily Note Subjective Pt alert, sitting in recliner. Pt agrees to therapy. No c/o pain at this time. Family coming in today for family training. Pt to discharge home with daughter tomorrow. Mental Status/Objective Patient Orientation: Person, Place, Time, Situation Therapy Code Descriptions/Definitions Functional [place] Measure: 0=Not Assessed/NA 4=Minimal Assistance 1=Total Assistance 5=Supervision or Setup 2=Maximal Assistance 6=Modified [place] 3=Moderate Assistance 7=Complete [place] ADL-Treatment Pt agrees to shower. Therapy Code Descriptions/Definitions Functional [place] Measure: 0=Not Assessed/NA 4=Minimal Assistance 1=Total Assistance 5=Supervision or Setup 2=Maximal Assistance 6=Modified [place] 3=Moderate Assistance 7=Complete [place] Therapy Quality Codes: 6 Independent with activity with or without an assistive device 5 Patient requires set up or clean up by helper. Patient completes activity by themselves 4 Supervision or touching assist (CGA). [place] provide cues , steadying assist 3 The helper provides less than half the effort to complete the activity 2 The helper provides more than half the effort to complete the activity 1 Dependent. The helper does all the effort to complete an activity 7 Patient refused to complete or attempt activity 9 The patient did not perform the activity before the current illness or injury 88 Not attempted due to Medical conditions or safety concerns Eating (FIM): 7 (Pt has demonstrated ability to complete own set up of meals and use regular utensils to eat.) Eating (QC): 6 Grooming (FIM): 6 (Sitting at sink, pt able to complete all grooming. Green hair does not place it in pony tail.) Oral Hygiene (QC): 6 Bathing (FIM): 6 (Using grabbars, hand held shower and shower bench pt able to complete by self. Pt leans side to side when cleansing/drying buttocks.) Bathing Location: L Arm, R Arm, L Upper Leg, R Upper Leg, L Lower Leg ( including foot), R Lower Leg (including foot), Chest, Abdomen, Buttocks, Perineal Area Shower/Bathe Self (QC): 6 Upper Body (FIM): 4 (Using one handed technique, pt able to thread B UE's through and lug breaker and wire puller head. Assist to pull down back.) Upper Body Dressing (QC): 3 Lower Body Dressing (FIM): 4 (Pt able to doff clothing, CGA in standing to hike over hips. Pt dons clothing over feet and CGA in standing to hike over hips. Pt assist with donning R sock, AFO and shoe. Pt dons L sock and shoe.) Lower Body Dressing (QC): 3 On/Off Footwear (QC): 3 Toileting (FIM): 4 (Using grabbar and hemiwalker and/or w/c. Pt cleanses self sitting on toilet. CGA in standing to manipulate clothing.) Toileting Hygiene (QC): 3 Transfers (B, C, W/C) (FIM): 4 (CGA for SPT.) Toilet/Commode Transfer (FIM): 4 (Using grabbar and hemiwalker, CGA.) Toilet Transfer (QC): 4 Tub Transfer(FIM): 4 (Min A to transfer onto tub transfer bench. Pt able to lift LE's over ledge.) Shower Transfer(FIM): 4 (CGA using hemiwalker, grabbars and shower bench.) Other Treatment Co-treat with PT for 30 min, skills of 2 clinicians needed for family training to educate on functional daily transfers. OT working on w/c mobility and tub transfers. PT working on car transfers and w/c mobility. After therapy, pt in care of PT. All needs met. Education OT Patient Education: Instructions don/doff splint/brace, Instructions to caregiver, Modified ADL techniques, Purpose of tx/functional activities, Safety issues, Transfer techniques, Use of adapted equipment, W/C management Teaching Recipient: Patient, Family Teaching Methods: Demonstration, Discussion Response to Teaching: Verbalize Understanding, Return Demonstration OT Short Term Goals Short Term Goals Time Frame: September 17, 2018 Bathing(FIM): 4 Upper Body Dressing(FIM): 3 Lower Body Dressing(FIM): 3 Toileting(FIM): 3 Toilet/Commode Transfer(FIM): 4 Additional Short Term Goals: 2-Verbalize Understanding, 3-ImproveStrength/Linda 1=Demonstrate adherence to instructed precautions during ADL tasks. 2=Patient will verbalize/demonstrate understanding of assistive devices/ modifications for ADL. 3=Patient will improve strength/tolerance for activity to enable patient to perform ADL's. OT [facility] Goals Mail Reader Goals Time Frame: October 01, 2018 Eating (FIM): 6 (met-09/23/18) Eating (QC): 6 (met-09/23/18) Groomin (met-09/23/18) Oral Hygiene (QC): 6 (met-09/23/18) Bathing(FIM): 5 (met-09/23/18) Shower/Bathe Self (QC): 4 (met-09/23/18) Upper Body Dressing(FIM): 5 (not met) Upper Body Dressing (QC): 5 (not met) Lower Body Dressing(FIM): 4 (met-09/23/18) Lower Body Dressing (QC): 4 (not met) On/Off Footwear (QC): 4 (met-09/23/18) Toileting(FIM): 5 (not mt) Toileting Hygiene (QC): 4 (met-09/23/18) Toilet/Commode Transfer(FIM): 5 (not met) Toilet/Commode Transfer (QC): 5 (not met) Shower Transfer(FIM): 5 (not met) Additional Goals: 2-Verbalize Understanding, 3-ImproveStrength/Linda 1=Demonstrate adherence to instructed precautions during ADL tasks. 2=Patient will verbalize/demonstrate understanding of assistive devices/ modifications for ADL. 3=Patient will improve strength/tolerance for activity to enable patient to perform ADL's. OT Education/Plan Problem List/Assessment Assessment: Decreased Activ Tolerance, Decreased UE Strength, Impaired Funct Balance, Impaired Self-Care Skills, Restricted Funct UE ROM Discharge Recommendations Plan/Recommendations: Continue POC Treatment Plan/Plan of Care Patient would benefit from OT for education, treatment and training to promote independence in ADL's, mobility, safety and/or upper extremity function for ADL' s. Plan of Care: ADL Retraining, Functional Mobility, Group Exercise/Act as Ind, UE Funct Exercise/Act, UE Neuromus Re-Ed/Coord Treatment Duration: October 01, 2018 Frequency: At least 5 of 7 days/Wk (IRF) Estimated Hrs Per Day: 1.5 hours per day Rehab Potential: Fair Time/GCodes Start Time: 09:00 Stop Time: 10:30 Total Time Billed (hr/min): 90 Billed Treatment Time 1 visit-ADL 4 (60 min) FA 2 (30 min) TJ PURDY September 23, 2018 10:49
--- NOTE | 2018-09-23 11:30 | Physical Therapy Daily Note ---
PT Daily Note-Current Subjective Pt reports a little nervous about leaving tomorrow. Pt's daughter states she is trying to get everything ready and ordered for her mother to stay with her. Pt' s and daughter verbalizing understanding of all education provided this session. Pain Numeric Pain Scale: 0-No Pain Appearance Pt in room in w/c with family, nurse and OT present. Co-treat with OT 30 minutes of therapy session. At end of session, pt sitting up in w/c with and daughter present, all needs met Mental Status Patient Orientation: Person, Place, Time, Eyes Open, Situation AFO RLE Transfers Therapy Code Descriptions/Definitions Functional [place] Measure: 0=Not Assessed/NA 4=Minimal Assistance 1=Total Assistance 5=Supervision or Setup 2=Maximal Assistance 6=Modified [place] 3=Moderate Assistance 7=Complete [place] Therapy Quality Codes: 6 Independent with activity with or without an assistive device 5 Patient requires set up or clean up by helper. Patient completes activity by themselves 4 Supervision or touching assist (CGA). [place] provide cues , steadying assist 3 The helper provides less than half the effort to complete the activity 2 The helper provides more than half the effort to complete the activity 1 Dependent. The helper does all the effort to complete an activity 7 Patient refused to complete or attempt activity 9 The patient did not perform the activity before the current illness or injury 88 Not attempted due to Medical conditions or safety concerns Transfers (B, C, W/C) (FIM): 4 Scootin Rollin Roll Left to Right (QC): 5 Supine to/from Sit: 5 Sit to/from Stand: 4 Sit to Lying (QC): 5 Sit to Stand (QC): 4 Chair/Osm-bv-Osufm Xfer(QC): 4 Bed to/from Chair: 4 Car Transfer (QC): 4 CGA and increased guarding for safety itzel as pt fatigues. Sit to and from stand transfers w/c, EOB, edge of hi-lo mat table, toilet, bath bench/tub, car seat. Weight Bearing Right Lower Extremity: Right Weight Bearing/Tolerated Left Lower Extremity: Left Full Weight Bearing AFO RLE Gait Training Does the Patient Walk?: Yes Gait (FIM): 4 Distance (FIM): 3=150 ft Distance: 150, several 5-10' distances with various other activities Walk 10 feet (QC): 5 Walk 50 ft with 2 Turns(QC): 4 Walk 150 ft (QC): 4 Walking 10ft/uneven surface-QC: 4 Gait Level of Assist: 4 (x2 episodes LE weakness giving out with fatigue requiring min A to recover and sitting rest break) Gait Persons Needed: 1 Gait Assistive Device: Walker Lior inconsistent steps, occasional longer stride with RLE, occasional step to pattern with LLE to RLE, good sequencing with lior walker/cane, unsteady at times and able to self correct, but with x 2 LOB episodes requiring min A to correct. Increased fatigue. Daughter instructed in gait with pt, use of gait belt, positioning and instruction to give pt. Pt's daughter also participated in gait training with pt and able to follow instruction and follow through. Walking on uneven surface requiring verb instruction and CGA to min A initially Wheelchair Training Does the Pt Use a Wheelchair?: Yes Wheelchair (FIM): 5 Wheelchair Distance: 3=150 ft Distance: 150 Wheelchair Level of Assist: 5 (required physical assist after 150') Wheel 50 ft with 2 turns (QC): 5 Wheel 150 ft (QC): 4 (beginning to fatigue and requiring assist after 150') Type of Wheelchair: Manual use of LUE to propel and RLE to propel and steer/guide with RLE on footrest. Pt demo ability to place foot on and off pedal and swing pedal in and out of position with min verbal cueing. Pt applies brakes when appropriate. Pt does fatigue and requires some assist. Stair Training 1 Step (curb) (QC): 4 (encouragement, verb instruction and min assist to steady ) Stairs: Pattern: Step to Level of Assist: 4 Treatments FIM scoring, car transfers into/out of pt's daughter's car, sit to from stand transfers, pt and CG instruction/training, gait, step/curb, uneven surfaces, safety, functional mobility, activity tolerance, toileting, tub transfers, w/c mobility, bed mobility, donning/doffing AFO Assessment Current Status: Good Progress PT Short Term Goals Short Term Goals Time Frame: September 17, 2018 Gait (FIM): 1 Gait Distance Comment: 20' Gait Level of Assist: 3 Gait Assistive Device: Walker Lior Wheelchair Distance: 150' PT Production Team Advisor Goals Shelter Goals PT Shelter Goals Time Frame: October 01, 2018 Transfers (B,C,W/C) (FIM): 4 Sit to Lying (QC): 4 Lying-Sitting on Side/Bed(QC): 4 Sit to Stand (QC): 4 Rollin Roll Left to Right (QC): 4 Chair/Sng-ay-Omcpo Xfer(QC): 4 Car Transfer (QC): 4 Gait (FIM): 1 Distance: 40' Walk 10 feet (QC): 3 Walk 10ft-Uneven Surface(QC): 3 Gait Level of Assist: 4 Gait Assistive Device: Walker Lior Stairs (FIM): 1 # of Steps: 1 1 Step (curb) (QC): 3 Stairs Level Of Assist: 4 PT Plan Treatment/Plan Treatment Plan: Continue Plan of Care Treatment Plan: Bed Mobility, Concurrent Therapy, Education, Functional Activity Linda, Functional Strength, Group Therapy, Gait, Safety, Therapeutic Exercise, Transfers Treatment Duration: October 01, 2018 Frequency: At least 5 of 7 days/Wk (IRF) Estimated Hrs Per Day: 1.5 hours per day Patient and/or Family Agrees t: Yes Safety Risks/Education Patient Education: Gait Training, Transfer Techniques, Steps, W/C Management, Reviewed Don/Doff Brace, Instructions to Caregiver, Disease Process, Safety Issues Teaching Recipient: Patient, Family Teaching Methods: Demonstration, Discussion Response to Teaching: Verbalize Understanding, Return Demonstration, Reinforcement Needed Time/GCodes Time In: 1000 Time Out: 1105 Total Billed Treatment Time: 65 Total Billed Treatment 1 visit, FA x1 unit, WC x 1 unit, GT x 2 units JOY BACA PTA September 23, 2018 11:30
--- NOTE | 2018-09-23 11:34 | Physical Therapy Daily Note ---
PT Daily Note-Current Subjective Patient in recliner pre tx, she just got done with her morning PT treatment and agrees to do her afternoon PT treatment early, no complaints of pain. Patient states that her right leg is very tired because she has had a lot of therapy this morning and it has been buckling a little so ambulation will not be done this morning. Appearance Patient in recliner post tx with nurse call, phone, tray, all needs met. Mental Status Patient Orientation: Person, Place, Situation Transfers Therapy Code Descriptions/Definitions Functional [place] Measure: 0=Not Assessed/NA 4=Minimal Assistance 1=Total Assistance 5=Supervision or Setup 2=Maximal Assistance 6=Modified [place] 3=Moderate Assistance 7=Complete [place] Therapy Quality Codes: 6 Independent with activity with or without an assistive device 5 Patient requires set up or clean up by helper. Patient completes activity by themselves 4 Supervision or touching assist (CGA). [place] provide cues , steadying assist 3 The helper provides less than half the effort to complete the activity 2 The helper provides more than half the effort to complete the activity 1 Dependent. The helper does all the effort to complete an activity 7 Patient refused to complete or attempt activity 9 The patient did not perform the activity before the current illness or injury 88 Not attempted due to Medical conditions or safety concerns Transfers (B, C, W/C) (FIM): 4 Sit to/from Stand: 4 Bed to/from Chair: 4 CGA, patient performed 3 stand pivot transfers to the right and one to the left, no LOB and patient has appropriate use of hand placement Weight Bearing Right Lower Extremity: Right Weight Bearing/Tolerated Wheelchair Training Wheelchair (FIM): 6 Distance: 150'x2 Type of Wheelchair: Manual Exercises NuStep Minutes: 15 NuStep Workload: 4 Treatments LE strengthening to promote improved ambulation Assessment Current Status: Fair Progress improved transfers PT Short Term Goals Short Term Goals Time Frame: September 17, 2018 Gait (FIM): 1 Gait Distance Comment: 20' Gait Level of Assist: 3 Gait Assistive Device: Walker Lior Wheelchair Distance: 150' PT Correction Goals Correction Goals PT Correction Goals Time Frame: October 01, 2018 Transfers (B,C,W/C) (FIM): 4 Sit to Lying (QC): 4 Lying-Sitting on Side/Bed(QC): 4 Sit to Stand (QC): 4 Rollin Roll Left to Right (QC): 4 Chair/Jog-ig-Xqoop Xfer(QC): 4 Car Transfer (QC): 4 Gait (FIM): 1 Distance: 40' Walk 10 feet (QC): 3 Walk 10ft-Uneven Surface(QC): 3 Gait Level of Assist: 4 Gait Assistive Device: Walker Lior Stairs (FIM): 1 # of Steps: 1 1 Step (curb) (QC): 3 Stairs Level Of Assist: 4 PT Plan Problem List Problem List: Activity Tolerance, Functional Strength, Safety, Balance, Gait, Transfer, Bed Mobility Treatment/Plan Treatment Plan: Continue Plan of Care Treatment Plan: Bed Mobility, Concurrent Therapy, Education, Functional Activity Linda, Functional Strength, Group Therapy, Gait, Safety, Therapeutic Exercise, Transfers Treatment Duration: October 01, 2018 Frequency: At least 5 of 7 days/Wk (IRF) Estimated Hrs Per Day: 1.5 hours per day Patient and/or Family Agrees t: Yes Safety Risks/Education Patient Education: Transfer Techniques, Correct Positioning, W/C Management, Safety Issues Teaching Recipient: Patient Teaching Methods: Demonstration, Discussion Response to Teaching: Reinforcement Needed Time/GCodes Time In: 1100 Time Out: 1130 Total Billed Treatment Time: 30 Total Billed Treatment 1 visit EX 15' FA 15' ALINE SÁNCHEZ PT September 23, 2018 11:34
--- NOTE | 2018-09-23 15:08 | NUR ---
DRYING MACHINE OPERATOR PACKAGE YARNS met with patient and family to review family training and comfort with discussed discharge plans for tomorrow. Patient and family feel equipped to manage safely at daughter's home. DRYING MACHINE OPERATOR PACKAGE YARNS has sent wheelchair ordered to [facility] with request of delivery tomorrow. Following review of home health provider list, patient has selected [facility]. DRYING MACHINE OPERATOR PACKAGE YARNS notified Joanne [facility] liaison. DRYING MACHINE OPERATOR PACKAGE YARNS will verify patient's daughter's address and reiterate the need for home bound status. She received a call from Erika Frederick to arrange outpatient appt with Neurologist, as referred by Erika Chang. Patient intends to wait on scheduling appointment until following up with PCP, Dr. Guajardo. Addendum: 09/23/18 at 1752 by FRANK ALMENDAREZ DRYING MACHINE OPERATOR PACKAGE YARNS received notification from [place] [facility] liaison that patient is responsible for max at a pocket of $5068.42 before patient has 100 percent coverage for [facility] services. DRYING MACHINE OPERATOR PACKAGE YARNS explained this to patient. Patient understands that she will receive multiple hospital bills from recent hospitalizations and max at a pocket will eventually be met following payment of these services; therefore, max will be met and [facility] will be covered at that time. She wishes to proceed with [facility].
[2018-09-23 16:44] VITALS: BP 136/78
[2018-09-23] MEDS: ATORVASTATIN 80 MG (LIPITOR) TABLET PO SCH (20:49)
[2018-09-24 05:20] VITALS: BP 125/78
[2018-09-24] MEDS ORDERED: POLY17PO31 PO (08:00)
[2018-09-24] MEDS ORDERED: CITA20TA9 PO (08:00)
[2018-09-24] MEDS ORDERED: ATOR80TA76 PO (08:00)
[2018-09-24] MEDS ORDERED: CLOP75TA28 PO (08:00)
[2018-09-24] MEDS ORDERED: ACHD5005 PO (08:00)
[2018-09-24] MEDS ORDERED: BACL10TA PO (08:00)
[2018-09-24] MEDS ORDERED: LISI-552 PO (08:00)
[2018-09-24] MEDS ORDERED: ALPR0.254 PO (08:00)
--- NOTE | 2018-09-24 08:04 | Discharge Summary ---
Diagnosis/Chief Complaint Date of Admission September 09, 2018 at 22:22 Date of Discharge Discharge Date: September 24, 2018 Discharge Diagnosis Assess & Plan/Chief Complaint Assessment: CVA w/right sided weakness Dysarthria Incontinence urinary Constipation-resolved 09/11/18 Smoker HLP Edema mild Plan: IRF protocols BM regimen Smoking cessation Fall risk prevention Monitor BP Urinary continence training Baclofen for spastic muscles Psych consult reviewed and appreciated Disability papers per SW Maintain increased Celexa to 20mg daily HCTZ 12.5mg po daily to be maintained (1) CVA (cerebral vascular accident) (2) Constipation (3) Dysarthria (4) Depression (5) Grief reaction (6) Hyperlipidemia (7) Incontinence of urine (8) Right sided weakness (9) Smoker (10) Spasticity as late effect of cerebrovascular accident (CVA) (11) Risk for falls (12) Taste impairment Discharge Summary Discharge Physical Examination Allergies: Coded Allergies: Penicillins (Verified Allergy, Unknown, 09/09/18) Sulfa (Sulfonamide Antibiotics) (Verified Allergy, Unknown, 09/09/18) Vitals & I&Os Vital Signs Date Time Temp Pulse Resp B/P (MAP) Pulse Ox O2 Delivery O2 Flow Rate FiO2 09/24/18 09:00 Room Air 09/24/18 05:20 97.0 62 16 125/78 (94) 95 General Appearance: Alert, Oriented X3, Cooperative HEENT: Atraumatic, PERRLA Respiratory: Clear to Auscultation, Normal Air Movement Cardiovascular: Regular Rate, Normal S1, Normal S2 Abdominal: Normal Bowel Sounds, Soft Extremities: No Clubbing, No Cyanosis Skin: No Rashes, No Breakdown Neuro: Other (right hemiparesis remains) Psych/Mental Status: Mental Status NL, Mood NL Hospital Course Was the Problem List Reviewed?: Yes Hospital course: patient had a standard hospital course after transferred from [place], [place] after sustaining a severe CVA with right sided hemiparesis. Patient was very motivated from day of admit on 09/09/18 and participated in all therapies and was eventually able to walk with a quad cane with assistance and regain independent function with stand by assist in ADL's. Depression improved on increase dose of Celexa and was seen by Behavioral Health with good results. Bowel function remained normal after constipation resolved 2 days after admit. Incontinence was improved. Smoking cessation was counseled. All meds were evaluated at [facility] and she will have close f/u with [facility] and will see Neurologist as outpatient. Labs (last 24 hrs) Laboratory Tests 09/10/18 06:20: White Blood Count 7.8, Red Blood Count 4.52, Hemoglobin 14.3, Hematocrit 41, Mean Corpuscular Volume 90, Mean Corpuscular Hemoglobin 32, Mean Corpuscular Hemoglobin Concent 35, Red Cell Distribution Width 12.6, Platelet Count 198, Mean Platelet Volume 9.8, Neutrophils (%) (Auto) 60, Lymphocytes (%) (Auto) 26, Monocytes (%) (Auto) 12, Eosinophils (%) (Auto) 2, Basophils (%) (Auto) 1, Neutrophils # (Auto) 4.6, Lymphocytes # (Auto) 2.0, Monocytes # (Auto) 0.9, Eosinophils # (Auto) 0.2, Basophils # (Auto) 0.1, Sodium Level 134L, Potassium Level 3.9, Chloride Level 103, Carbon Dioxide Level 21, Anion Gap 10, Blood Urea Nitrogen 19H, Creatinine 0.79, Estimat Glomerular Filtration Rate > 60, BUN/Creatinine Ratio 24, Glucose Level 96, Calcium Level 9.4, Corrected Calcium 9.3, Total Bilirubin 0.9, Aspartate Amino Transf (AST/SGOT) 23, Alanine Aminotransferase (ALT/SGPT) 39, Alkaline Phosphatase 66, Total Protein 6.8, Albumin 4.1 09/17/18 05:45: White Blood Count 7.0, Red Blood Count 4.03L, Hemoglobin 12.7, Hematocrit 37, Mean Corpuscular Volume 91, Mean Corpuscular Hemoglobin 32, Mean Corpuscular Hemoglobin Concent 35, Red Cell Distribution Width 12.1, Platelet Count 185, Mean Platelet Volume 9.8, Neutrophils (%) (Auto) 60, Lymphocytes (%) (Auto) 27, Monocytes (%) (Auto) 9, Eosinophils (%) (Auto) 3, Basophils (%) (Auto) 1, Neutrophils # (Auto) 4.2, Lymphocytes # (Auto) 1.9, Monocytes # (Auto) 0.6, Eosinophils # (Auto) 0.2, Basophils # (Auto) 0.1, Sodium Level 139, Potassium Level 3.7, Chloride Level 109H, Carbon Dioxide Level 22, Anion Gap 8, Blood Urea Nitrogen 11, Creatinine 0.61, Estimat Glomerular Filtration Rate > 60, BUN/Creatinine Ratio 18, Glucose Level 101, Calcium Level 9.2, Corrected Calcium 9.5, Total Bilirubin 0.6, Aspartate Amino Transf (AST/SGOT) 16, Alanine Aminotransferase (ALT/SGPT) 21, Alkaline Phosphatase 59, Total Protein 6.2L, Albumin 3.6 Pending Labs Laboratory Tests 09/10/18 06:20: White Blood Count 7.8, Red Blood Count 4.52, Hemoglobin 14.3, Hematocrit 41, Mean Corpuscular Volume 90, Mean Corpuscular Hemoglobin 32, Mean Corpuscular Hemoglobin Concent 35, Red Cell Distribution Width 12.6, Platelet Count 198, Mean Platelet Volume 9.8, Neutrophils (%) (Auto) 60, Lymphocytes (%) (Auto) 26, Monocytes (%) (Auto) 12, Eosinophils (%) (Auto) 2, Basophils (%) (Auto) 1, Neutrophils # (Auto) 4.6, Lymphocytes # (Auto) 2.0, Monocytes # (Auto) 0.9, Eosinophils # (Auto) 0.2, Basophils # (Auto) 0.1, Sodium Level 134, Potassium Level 3.9, Chloride Level 103, Carbon Dioxide Level 21, Anion Gap 10, Blood Urea Nitrogen 19, Creatinine 0.79, Estimat Glomerular Filtration Rate > 60, BUN/Creatinine Ratio 24, Glucose Level 96, Calcium Level 9.4, Corrected Calcium 9.3, Total Bilirubin 0.9, Aspartate Amino Transf (AST/SGOT) 23, Alanine Aminotransferase (ALT/SGPT) 39, Alkaline Phosphatase 66, Total Protein 6.8, Albumin 4.1 09/17/18 05:45: White Blood Count 7.0, Red Blood Count 4.03, Hemoglobin 12.7, Hematocrit 37, Mean Corpuscular Volume 91, Mean Corpuscular Hemoglobin 32, Mean Corpuscular Hemoglobin Concent 35, Red Cell Distribution Width 12.1, Platelet Count 185, Mean Platelet Volume 9.8, Neutrophils (%) (Auto) 60, Lymphocytes (%) (Auto) 27, Monocytes (%) (Auto) 9, Eosinophils (%) (Auto) 3, Basophils (%) (Auto) 1, Neutrophils # (Auto) 4.2, Lymphocytes # (Auto) 1.9, Monocytes # (Auto) 0.6, Eosinophils # (Auto) 0.2, Basophils # (Auto) 0.1, Sodium Level 139, Potassium Level 3.7, Chloride Level 109, Carbon Dioxide Level 22, Anion Gap 8, Blood Urea Nitrogen 11, Creatinine 0.61, Estimat Glomerular Filtration Rate > 60, BUN/Creatinine Ratio 18, Glucose Level 101, Calcium Level 9.2, Corrected Calcium 9.5, Total Bilirubin 0.6, Aspartate Amino Transf (AST/SGOT) 16, Alanine Aminotransferase (ALT/SGPT) 21, Alkaline Phosphatase 59, Total Protein 6.2, Albumin 3.6 Discharge Home Medications: Active Scripts Active Polyethylene Glycol 3350 17 Gm Powd.pack 34 Gm PO BID 30 Days Alprazolam 0.25 Mg Tablet 0.25 Mg PO Q8H PRN Citalopram HBr (Citalopram Hydrobromide) 20 Mg Tablet 20 Mg PO DAILY Hydrocodone/Acetaminophen 5/325mg Tablet (Acetaminophen/Hydrocodone Bitart) 1 Tab Tab 1 Tab PO Q4H PRN Lisinopril 20 Mg Tablet 20 Mg PO DAILY Atorvastatin Calcium 80 Mg Tablet 40 Mg PO HS Clopidogrel (Clopidogrel Bisulfate) 75 Mg Tablet 75 Mg PO DAILY Baclofen 10 Mg Tablet 10 Mg PO TID PRN Reported Hydrochlorothiazide 12.5 Mg Tablet 12.5 Mg PO UD Melatonin 3 Mg Tablet 3 Mg PO HS PRN Instructions to patient/family Please see electronic discharge instructions given to patient. 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
--- NOTE | 2018-09-24 08:06 | D/C HH Face to Face Order ---
D/C Face to Face Orders Instructions for Patient Via [facility], Patient Instructions/FollowUp: Dr Guajardo in 1 week Physician to follow Patient: Dr Abelardo Guajardo Discharge Diet for Home: No Restrictions Patient Problems: CVA Smoker HTN Depression Goals for Patient: Return to independent living Patient Data-Allergies,Ht & Wt Patient Allergies: Coded Allergies: Penicillins (Verified Allergy, Unknown, 09/09/18) Sulfa (Sulfonamide Antibiotics) (Verified Allergy, Unknown, 09/09/18) Height (Feet): 5 Height (Inches): 8.00 Weight (Pounds): 177 Weight (Ounces): 5.0 Home Health Need/Face to Face Date of Face to Face: September 24, 2018 Clinical Findings: Generalized weakness and fatigue, Instability, Muscle weakness, Unsteady gait I have seen Pt [id number]: Yes Discharged To: Home Diagnosis/Conditions: CVA Smoker HTN Depression Patient is Homebound due to: Aym fall risk due to instabilty, Muscle weakness Homebound Status Due to the above stated illness, injury or surgical procedure (medical condition or diagnosis) and associated clinical findings, the patient is homebound because of his/her inability to leave home except with aid of a supportive device and/or person AND leaving the home requires a considerable and taxing effort or is medically contraindicated. Pt req the following assistanc: Wheelchair Home Health Nursing Orders Home Health Services Order: Nursing Services, Home Health Aide-Evaluate & Treat, Physical Therapy-Evaluate & Treat Certify Stmt I certify that this patient is under my care and that I, a nurse practitioner or a physician; a psychiatric nursing assistant working with me, had a face to face encounter that - meets the physician face to face encounter requirements with this patient as dated. MILLY KING DO September 24, 2018 08:06
[2018-09-24] MEDS: CLOPIDOGREL 75 MG (PLAVIX) TABLET PO SCH (08:10)
[2018-09-24] MEDS: DOCUSATE SODIUM 100 MG (COLACE) CAP PO SCH (08:11)
[2018-09-24] MEDS: lisINopril 20 MG (PRINIVIL) TABLET PO SCH (08:11)
[2018-09-24] MEDS: SENNA W/DOCUSATE (SENOKOT S) TABLET PO SCH (08:11)
[2018-09-24] MEDS: HYDROCHLOROTHIAZIDE 12.5 MG (HCTZ) CAP PO SCH (08:11)
[2018-09-24] MEDS: POLYETHYLENE GLYCOL 17 GM (MIRALAX) PACK PO SCH (08:23)
--- NOTE | 2018-09-24 09:32 | Therapy Team Discharge Summary ---
Therapy Discharge Summary Discharge Recommendations Date of Discharge 09/24/2018 Therapy D/C Recommendations: Home w/ Family Support, Physical Therapy Home Care (vs outpatient) Physical Therapy This patient was admitted to ARU post acute hospital stay due to a CVA. 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 Upon admission to this unit, she was mod assist with transfers, able to walk 8' in / / bars with mod assist, min assist with wc mobility and unable to attempt a step. Treatment focused on functional strength and coordination of the right LE as well as balance training to progress her ability to transfer and to ambulate. Family/caregiver training was incorporated as well. She made functional gains and did meet her goals, but due to decreased stay due to insurance coverage limits, she did not achieve a mod indep level. At last visit , she was min assist transfers, min assist gait, up/down a curb step with assist and SBA with wc mobiltiy. She is to discharge home with family support. Recommend continued skilled therapy services either at home or outpatient clinic. DC PT. Occupational Therapy Decreased Activ Tolerance, Decreased UE Strength, Impaired Funct Balance, Impaired Self-Care Skills, Restricted Funct UE ROM PT Hall Worker Goals Care Home Goals PT Care Home Goals Time Frame: October 01, 2018 Transfers (B,C,W/C) (FIM): 4 (met) Roll Left to Right (QC): 4 Sit to Lying (QC): 4 Lying-Sitting on Side/Bed(QC): 4 Sit to Stand (QC): 4 Chair/Vee-fp-Lrdsk Xfer(QC): 4 Car Transfer (QC): 4 Gait (FIM): 1 (exceeded) Distance: 40' Walk 10 feet (QC): 3 Walk 10ft-Uneven Surface(QC): 3 Gait Level of Assist: 4 Gait Assistive Device: Walker Lior Stairs (FIM): 1 (met) # of Steps: 1 1 Step (curb) (QC): 3 Stairs Level Of Assist: 4 OT Hall Worker Goals Care Home Goals Time Frame: October 01, 2018 Eating (FIM): 6 (met-09/23/18) Eating (QC): 6 (met-09/23/18) Oral Hygiene (QC): 6 (met-09/23/18) Grooming(FIM): 6 (met-09/23/18) Bathing(FIM): 5 (met-09/23/18) Shower/Bathe Self (QC): 4 (met-09/23/18) Upper Body Dressing(FIM): 5 (not met) Upper Body Dressing (QC): 5 (not met) Lower Body Dressing(FIM): 4 (met-09/23/18) Lower Body Dressing (QC): 4 (not met) On/Off Footwear (QC): 4 (met-09/23/18) Toileting(FIM): 5 (not mt) Toileting Hygiene (QC): 4 (met-09/23/18) Toilet/Commode Transfer(FIM): 5 (not met) Toilet/Commode Transfer (QC): 5 (not met) Shower Transfer(FIM): 5 (not met) Additional Goals: 2-Verbalize Understanding, 3-ImproveStrength/Linda 1=Demonstrate adherence to instructed precautions during ADL tasks. 2=Patient will verbalize/demonstrate understanding of assistive devices/ modifications for ADL. 3=Patient will improve strength/tolerance for activity to enable patient to perform ADL's. TJ REVELES PT September 24, 2018 09:32
--- NOTE | 2018-09-24 10:10 | Therapy Team Discharge Summary ---
Therapy Discharge Summary Discharge Recommendations Date of Discharge Therapy D/C Recommendations: Home w/ Family Support, Physical Therapy Home Care (vs outpatient) Occupational Therapy Pt admitted to ARU following acute hospitalization for CVA. On admission pt required mod assist with transfers and bathing, and max assist for dressing. Skilled OT intervention focused on ADL training, transfers, ROM/strengthening, and safety education. Pt making progress with therapy and at time of discharge is completing transfers with CGA, Dressing and toileting with min assist, and bathing and grooming with modified independence. Pt met goals for eating, grooming, bathing, and LE dressing, but did not meet other OT LTG. Pt discharging to daughter's home with family support this date. D/C ARU OT at this time. Decreased Activ Tolerance, Decreased UE Strength, Impaired Funct Balance, Impaired Self-Care Skills, Restricted Funct UE ROM PT Alf Goals Security Test Engineer Goals PT Security Test Engineer Goals Time Frame: October 01, 2018 Transfers (B,C,W/C) (FIM): 4 (met) Roll Left to Right (QC): 4 Sit to Lying (QC): 4 Lying-Sitting on Side/Bed(QC): 4 Sit to Stand (QC): 4 Chair/Xpr-qs-Ovbme Xfer(QC): 4 Car Transfer (QC): 4 Gait (FIM): 1 (exceeded) Distance: 40' Walk 10 feet (QC): 3 Walk 10ft-Uneven Surface(QC): 3 Gait Level of Assist: 4 Gait Assistive Device: Walker Lior Stairs (FIM): 1 (met) # of Steps: 1 1 Step (curb) (QC): 3 Stairs Level Of Assist: 4 OT Security Test Engineer Goals Alf Goals Time Frame: October 01, 2018 Eating (FIM): 6 (met-09/23/18) Eating (QC): 6 (met-09/23/18) Oral Hygiene (QC): 6 (met-09/23/18) Grooming(FIM): 6 (met-09/23/18) Bathing(FIM): 5 (met-09/23/18) Shower/Bathe Self (QC): 4 (met-09/23/18) Upper Body Dressing(FIM): 5 (not met) Upper Body Dressing (QC): 5 (not met) Lower Body Dressing(FIM): 4 (met-09/23/18) Lower Body Dressing (QC): 4 (not met) On/Off Footwear (QC): 4 (met-09/23/18) Toileting(FIM): 5 (not mt) Toileting Hygiene (QC): 4 (met-09/23/18) Toilet/Commode Transfer(FIM): 5 (not met) Toilet/Commode Transfer (QC): 5 (not met) Shower Transfer(FIM): 5 (not met) Additional Goals: 2-Verbalize Understanding, 3-ImproveStrength/Linda 1=Demonstrate adherence to instructed precautions during ADL tasks. 2=Patient will verbalize/demonstrate understanding of assistive devices/ modifications for ADL. 3=Patient will improve strength/tolerance for activity to enable patient to perform ADL's. EVENS MARKS OT September 24, 2018 10:09
--- NOTE | 2018-09-24 11:04 | NUR ---
[facility] LPN met with patient to review any last minute concerns regarding discharge plans today. Although discharge was dictated by insurance provider and is occurring prior to original recommendations by Team, patient feels confident in the family training that has occurred. Patient's wheelchair and cushion were delivered to room, at this time. [facility] LPN attempted to arrange PCP follow up appt with Dr. Guajardo; reyesver, she is required to pay her past due balance prior to scheduling. Patient states her daughter will make the payment and will also schedule a follow up at the time of payment. Patient has no additional concerns at this time. Please see discharge summary for further information.
[2018-09-24 16:28] VITALS: BP 125/78
== END 2018-09-24 15:30 | disposition home health service (06) | DRG 57 ==
LOC: EDBD 22:22
PROVIDERS: ADMIT Internal Medicine; ATTEND Internal Medicine
DX: I69.351 Hemiplegia and hemiparesis following cerebral infarction affecting right dominant side (principal); I69.322 Dysarthria following cerebral infarction; F17.200 Nicotine dependence, unspecified, uncomplicated; F43.23 Adjustment disorder with mixed anxiety and depressed mood; K59.00 Constipation, unspecified; R32 Unspecified urinary incontinence; E78.5 Hyperlipidemia, unspecified; R19.7 Diarrhea, unspecified; R60.9 Edema, unspecified; T50.905A Adverse effect of unspecified drugs, medicaments and biological substances, initial encounter
CPT/HCPCS: 36415; 80053; 85025